=== PATIENT | male | born 1965 | race Caucasian/White ===

== ENCOUNTER 2019-02-06 17:34 | Emergency (ER) | payer BC ==
[2019-02-06 18:18] LABS: Protime INR 0.89
[2019-02-06 18:20] LABS: Absolute Lymphocytes (CBC) 2.2 K/uL (0.7-4.9); Absolute Monocytes 0.5 K/uL (0.1-1.3); Absolute Neutrophil 3.8 K/uL (1.8-8.0); Basophils % 0.8 % (0-1.3); Eosinophils % 1.5 % (0-4.4); Hematocrit 42.5 % (39.6-49.0); Lymphocytes % 33.3 % (15.3-44.8); MPV 10.6 fL (7.6-11.3); Monocytes % 6.9 % (3.3-12.3)
--- NOTE | 2019-02-06 18:25 | RAD REPORT ---
EXAM DESCRIPTION: RAD - Chest Single View - 02/06/2019 6:17 pm CLINICAL HISTORY: Left-sided chest pain radiating to the left shoulder and back COMPARISON: None. TECHNIQUE: AP portable chest image was obtained 1813 hours . FINDINGS: Lungs are clear. Heart and vasculature are normal. No measurable pleural effusion and no p neumothorax. No acute bony abnormality seen. No acute aortic findings suspected. IMPRESSION: No acute cardiopulmonary process.
[2019-02-06 18:45] LABS: ALT/SGPT 24 U/L (12-78); AST/SGOT 8 U/L (15-37); Albumin 3.8 g/dL (3.4-5.0); Alkaline Phosphatase 87 U/L (45-117); BUN Blood Urea Nitrogen 16 mg/dL (7-18); Bicarbonate 24 mmol/L (21-32); Bilirubin Direct 0.1 mg/dL (0-0.2); Bilirubin Total 0.3 mg/dL (0.2-1.0); Magnesium 2.2 mg/dL (1.8-2.4); NT PRO-BNP 30 pg/mL (<125); Potassium 3.8 mmol/L (3.5-5.1); Protein, Total 7.7 g/dL (6.4-8.2); Sodium Level 138 mmol/L (136-145); Troponin (Emerg Dept Use Only) < 0.02 ng/mL (0.0-0.045)
[2019-02-06 18:48] LABS: Glucose Level 417 mg/dL (74-106)
[2019-02-06] MEDS ORDERED: ONDANSETRON 4 MG/2 ML VIAL ONE (18:49)
[2019-02-06] MEDS ORDERED: MORPHINE 4 MG/ML SYR ONE (18:49)
[2019-02-06] MEDS ORDERED: INSULIN -REGULAR HUMAN 50 UNIT/0.5 ML ML ONE (19:08)
--- NOTE | 2019-02-06 19:46 | RAD REPORT ---
EXAM DESCRIPTION: CT - Ct Stroke Brain Wo Cont - 02/06/2019 7:36 pm CLINICAL HISTORY: Acute onset stroke-like symptoms CLINICAL HISTORY: None. TECHNIQUE: Axial 5 millimeter thick images of the head were obtained without IV contrast. All CT scans are performed using dose optimization technique as appropriate and may include automated exposure control or mA/KV adjustment according to patient size. FINDINGS: No intracranial hemorrhage, mass, or cerebral edema. No acute infarction identifiable. No extra-axial fluid collections. Mendoza matter-white matter differentiation is preserved. Visualized portions of the mastoid air cells, paranasal sinuses, and orbits are unremarkable. Lex ocampo telephoned to Kellie Hicks at 7:42 p.m.. IMPRESSION: No CT evidence of acute intracranial process.
--- NOTE | 2019-02-06 19:53 | RAD REPORT ---
EXAM DESCRIPTION: CT - Chest Angio - 02/06/2019 7:38 pm CLINICAL HISTORY: Left-sided chest pain radiating to the left shoulder COMPARISON: Chest films same date TECHNIQUE: Dynamically enhanced axial 3 mm thick images of the chest were obtained during administra tion of 150 mL Isovue 370 IV contrast. Coronal and oblique reconstruction images were generated and r eviewed. Exam utilizes a protocol for optimal evaluation of pulmonary arterial tree. All CT scans are performed using dose optimization technique as appropriate and may include automated exposure control or mA/KV adjustment according to patient size. FINDINGS: Pulmonary arteries are normal. No emboli or other suspicious finding. No aortic aneurysm o r acute aortic finding. Arch is 3 vessel configuration with no great vessel origin abnormality. No pe ricardial thickening or effusion. No measurable coronary artery calcifications. No mass or infiltrate in the lung parenchyma. No pleural thickening or pleural effusion. No pneumotho rax. No abnormal mediastinal or hilar masses or lymphadenopathy seen. No chest wall mass or abnormal axill ml lymphadenopathy. IMPRESSION: No aortic abnormality. No pulmonary embolism. Negative CT scan of the chest for other significant findings.
[2019-02-06] MEDS ORDERED: ALTEPLASE 100 ML IV ONE (20:13)
--- NOTE | 2019-02-06 20:29 | EKG ---
Test Date: 2019-02-06 Test Time: 17:40:20 Software Development Analyst: EFRAIN MEASUREMENT RESULTS: Intervals: Rate: 90 NJ: 136 QRSD: 110 QT: 368 QTc: 450 [place]: P: 53 NJ: 136 QRS: 52 T: -47 INTERPRETIVE STATEMENTS: Normal sinus rhythm T wave abnormality, consider inferior ischemia Abnormal ECG No previous ECG available for comparison Electronically Signed On 02-06-19 20:29:07 CDT by Steve Lee
[2019-02-06] MEDS ORDERED: NA CHLORIDE 0.9% 100 ML IV ONE (20:34)
--- NOTE | 2019-02-06 20:58 | ER ---
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 Transition of care: patient was not received from another setting of care. Onset of symptoms was February 06, 2019. Risk Assessment: Do you want to hurt yourself or someone else? Patient reports no desire to harm self or others. Initial Sepsis Screen: Does the patient meet any 2 criteria? No. Patient's initial sepsis screen is negative. Does the patient have a suspected source of infection? No. Patient's initial sepsis screen is negative. Care prior to arrival: None. 17:41 Method Of Arrival: Ambulatory ph 17:41 Acuity: SIDNEY 2 ph 19:20 An acute neurological deficit is present. The charge nurse has been notified. tl2 Triage Assessment: 19:18 The onset of the patients symptoms was February 06, 2019 at 19:18. tl2 Stroke Activation: Physician: Stroke Attending; Name: ; Notified At: ; Arrived At: Physician: Chief Stroke Resident; Name: ; Notified At: ; Arrived At: Physician: Stroke Resident; Name: ; Notified At: ; Arrived At: Physician: ED Attending; Name: Marjorie; Notified At: 19:20; Arrived At: 19:22 Physician: ED Resident; Name: ; Notified At: ; Arrived At: Historical: - Allergies: 17:46 No Known Allergies; ph - Home Meds: 20:22 Metformin Oral [Active]; tl2 - PMHx: 17:46 Hypertension; Myocardial infarction; CVA; Diabetes - IDDM; Ulcers; ph - PSHx: 17:46 foot sx; stomach sx; ph - Immunization history:: Adult Immunizations up to date. - Social history:: Smoking status: . - Ebola Screening: : No symptoms or risks identified at this time. Screenin:40 Abuse screen: Denies threats or abuse. Denies injuries from another. Nutritional sv screening: No deficits noted. Tuberculosis screening: No symptoms or risk factors identified. Fall Risk None identified. Assessment: 17:40 General: Appears uncomfortable, well developed, Behavior is cooperative, appropriate sv for age, anxious, Smells of alcohol. Pain: Complains of pain in anterior aspect of left upper chest and left breast Pain radiates to left shoulder and back Pain currently is 8 out of 10 on a pain scale. Quality of pain is described as sharp, Pain began earlier today Is intermittent. Neuro: Level of Consciousness is awake, alert, obeys commands, Oriented to person, place, time, situation, Moves all extremities. Full function Gait is steady. Cardiovascular: Patient's skin is warm and dry. Pulses are 3+ in right radial artery and left radial artery Rhythm is sinus rhythm. Respiratory: Airway is patent Respiratory effort is even, unlabored, Respiratory pattern is regular, symmetrical. Derm: Skin is flushed. 18:55 Reassessment: Patient appears in no apparent distress at this time. Patient and/or ch family updated on plan of care and expected duration. Pain level reassessed. Patient is alert, oriented x 3, equal unlabored respirations, skin warm/dry/pink. pt still c/o chest pains, pt medicated per orders. pt then states he feels slightly better pt O2 drops to 86, placed on 2L NC, O2 increased to 95%. 19:18 Reassessment: Pt was about to leave for CT scan and reported left sided facial and arm tl2 numbness. Left sided facial droop and slight left sided drift. Reports numbness to face and left arm. MD notified. 19:18 T-PA (Activase) Screening: Indications: Definite evidence of stroke, ischemic, embolic, tl2 or hypertensive: Yes. Treatment will start within 4.5 hours onset of symptoms: Yes. 19:20 VAN Scoring: Arm Drift: Minor drift tl2 19:20 General: Appears in no apparent distress. uncomfortable, Behavior is cooperative, tl2 appropriate for age, anxious. Pain: Complains of pain in chest Pain radiates to back, left arm Pain currently is 9 out of 10 on a pain scale. Quality of pain is described as sharp. 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 Cardiovascular: Patient's skin is warm and dry. Rhythm is sinus rhythm. Respiratory: Reports shortness of breath Airway is patent Respiratory effort is even, unlabored, Respiratory pattern is regular, symmetrical. GI: No signs and/or symptoms were reported involving the gastrointestinal system. Derm: Skin is flushed. 20:24 Reassessment: TPA started at 2023. See flowsheet for vitals. tl2 20:35 The patient has not been NPO before screening. The patient is alert, and able to follow tl2 commands. The patient does not exhibit slurred or garbled speech. The patient is not exhibiting difficulty speaking. The patient does not exhibit difficulty understanding words. The patient is able to swallow own secretions with no drooling or need for suction. Patient tolerated one teaspoon of water. No drooling, immediate coughing, gurgling, or clearing of the throat was noted. The patient did not tolerate 90mL of water. Drooling, immediate coughing, gurgling, or clearing of the throat was noted. Bedside swallow screening discontinued. Patient kept NPO until cleared by Speech Therapy or Physician. The patient failed the bedside swallow screening. The patient will be kept NPO until cleared by Speech Therapy or Physician. Provider notified of bedside swallow screening results: Yared Amador MD. 21:00 Reassessment: Patient appears in no apparent distress at this time. Patient and/or tl2 family updated on plan of care and expected duration. Pain level reassessed. [facility] at bedside. Pt stable for transfer. 21:00 Reassessment: Report given to [facility] nurse. TPA infusing at this time, 100 mL NS tl2 IVPB bag in place to infuse remaining tPA in tubing, [facility] aware. Pt is stable for transfer. Vital Signs: 17:44 BP 145 / 86; Pulse 91; Resp 24; Temp 98.4; Weight 95.25 kg; Height 5 ft. 9 in. (175.26 ph cm); Pain 8/10; 19:20 BP 151 / 97; Pulse 87; Resp 18; Pulse Ox 92% on 4 lpm NC; tl2 20:36 BP 163 / 76; Pulse 90; Resp 18; Pulse Ox 92% on 4 lpm NC; tl2 21:07 BP 156 / 76; Pulse 87; Resp 18; Temp 98; Pulse Ox 93% on 4 lpm NC; tl2 17:44 Body Mass Index 31.01 (95.25 kg, 175.26 cm) ph NIH Stroke Scale Scores: 19:20 NIHSS Score: 4 tl2 20:33 NIHSS Score: 8 gs ED Course: 17:35 Patient arrived in ED. as 17:40 Initial lab(s) drawn, by me, sent to lab. Inserted saline lock: 18 gauge in right sv forearm, using aseptic technique. Blood collected. Flushed right forearm with 5 ml normal saline. 17:40 EKG done, by technical sales manager. reviewed by Jorden Martin MD. sm3 17:40 Patient maintains SpO2 saturation greater than 95% on room air. sv 17:40 Patient has correct armband on for positive identification. Placed in gown. Bed in low sv position. Call light in reach. Side rails up X 1. ekg monitor tech on. Pulse ox on. NIBP on. Door closed. Head of bed elevated. 17:42 Claire Castillo, ELDER is Primary Nurse. sv 17:44 Triage completed. ph 17:46 Arm band placed on Patient placed in an exam room, on a stretcher, in view of staff ph members, on satellite project site monitor, on pulse oximetry. 17:53 Jorden Martin MD is Attending Physician. kdr 18:00 ED physician to see patient. sv 18:00 Basic Metabolic Panel Sent. sv 18:00 CBC with Diff Sent. sv 18:01 Magnesium Sent. sv 18:01 NT PRO-BNP Sent. sv 18:01 LFT's Sent. sv 18:10 X-ray(s) taken. sv 18:14 X-ray completed. Portable x-ray completed in exam room. Patient tolerated procedure ls3 well. 18:15 XRAY Chest (1 view) In Process Unspecified. EDMS 18:49 Notified ED physician of a critical lab result(s). bgl 417. ss 19:05 Report given to Cynthia FRIEDMAN and Ciara FRIEDMAN. sv 19:18 Primary Nurse role handed off by Claire Castillo, RN sv 19:25 Attending Physician role handed off by Jorden Martin MD gs 19:25 Yared Amador MD is Attending Physician. gs 19:37 CT Stroke Brain w/o Contrast In Process Unspecified. EDMS 19:38 CT Chest Angio In Process Unspecified. EDMS 21:05 Inserted saline lock: 20 gauge in left hand, using aseptic technique. tl2 21:25 Cynthia Mai RN is Primary Nurse. tl2 21:26 No provider procedures requiring assistance completed. Patient transferred, IV remains tl2 in place. 02/07 05:27 Primary Nurse role handed off by Cynthia Mai RN tl2 Administered Medications: 05 18:36 Drug: morphine 4 mg Route: IVP; Site: right forearm; ch 18:55 Follow up: Response: No adverse reaction; Pain is decreased ch 18:36 Drug: Zofran 4 mg Route: IVP; Site: right forearm; ch 18:55 Follow up: Response: No adverse reaction; Pain is decreased ch 18:57 Drug: Insulin Regular Human 5 units {Co-Signature: (Mulu Lima RN).} Route: sv IVP; Site: right forearm; 20:40 Follow up: Response: No adverse reaction; Blood sugar is lowered tl2 20:24 Drug: Alteplase {Co-Signature: tl1 (Ciara Berg RN).} Route: IV Thrombolytics; Rate: tl2 calculated rate; 21:06 Follow up: Response: infusion continued upon transfer tl2 21:28 Follow up: Response: No adverse reaction; No adverse reaction, infusion continue on tl2 transfer 21:04 Drug: fentaNYL (PF) 50 mcg Route: IVP; Site: left hand; tl2 21:27 Follow up: Response: No adverse reaction; Medication administered at discharge. tl2 21:04 Drug: NS 0.9% 100 ml Route: IV; Rate: bolus; Site: right forearm; tl2 21:10 Follow up: IV Status: Infusion continued upon transfer tl2 Point of Care Testing: Blood Glucose: 20:36 Blood Glucose: 254 mg/dL; tl2 Ranges: Outcome: 20:58 ER care complete, transfer ordered by . gs 21:26 Transferred by helicopter to [facility], Transfer form completed. tl2 21:26 Condition: stable 21:26 Discharge instructions given to patient, Instructed on the need for transfer. 21:28 Patient left the ED. tl2 02/07 05:29 Patient left the ED. tl2 NIH Stroke Scale - NIH Stroke Score Date: 02/06/2019 Time: 19:20 Total Score = 4 1a. Level of Consciousness (LOC) - 0(Alert) 1b. Level of Consciousness (LOC) (Year \\T\\ Age) - 0(Both) 1c. LOC Commands (Open \\T\\ Closes Eyes/Pre Press Proofer) - 0(Both) 2. Best Gaze (Lateral Gaze Paresis) - 0(Normal) 3. Visual Field Loss - 0(No visual loss) 4. Facial Palsy - 1(Minor Paralysis) 5a. Left Arm: Motor (10-second hold) - 1(Drift) 5b. Right Arm: Motor (10-second hold) - 0(No drift) 6a. Left Leg: Motor (5-second hold - always test supine) - 1(Drift) 6b. Right Leg: Motor (5-second hold - always test supine) - 0(No drift) 7. Limb Ataxia (finger/nose \\T\\ heel/alanis - test with eyes open) - 0(Absent) 8. Sensory Loss (pinprick arms/legs/face) - 1(Mild to moderate loss) 9. Best Language: Aphasia (description/naming/reading) - 0(No aphasia) 10. Dysarthria (speech clarity - read or repeat words) - 0(Normal) 11. Extinction and Inattention (visual/tactile/auditory/spatial/personal) - 0(No abnormality) Initials: 2 NIH Stroke Scale - NIH Stroke Score Date: 02/06/2019 Time: 20:33 Total Score = 8 1a. Level of Consciousness (LOC) - 0(Alert) 1b. Level of Consciousness (LOC) (Year \\T\\ Age) - 0(Both) 1c. LOC Commands (Open \\T\\ Closes Eyes/Pre Press Proofer) - 0(Both) 2. Best Gaze (Lateral Gaze Paresis) - 0(Normal) 3. Visual Field Loss - 0(No visual loss) 4. Facial Palsy - 1(Minor Paralysis) 5a. Left Arm: Motor (10-second hold) - 2(Drift, some effort against gravity) 5b. Right Arm: Motor (10-second hold) - 0(No drift) 6a. Left Leg: Motor (5-second hold - always test supine) - 1(Drift) 6b. Right Leg: Motor (5-second hold - always test supine) - 0(No drift) 7. Limb Ataxia (finger/nose \\T\\ heel/alanis - test with eyes open) - 1(Present in one limb) 8. Sensory Loss (pinprick arms/legs/face) - 1(Mild to moderate loss) 9. Best Language: Aphasia (description/naming/reading) - 1(Mild to moderate aphasia) 10. Dysarthria (speech clarity - read or repeat words) - 1(Mild to Moderate) 11. Extinction and Inattention (visual/tactile/auditory/spatial/personal) - 0(No abnormality) Initials: Signatures: Dispatcher [employer] Mulu Barber RN RN Claire Castillo RN RN Jorden Martin MD MD [facility] Edwige Burton Shelby, RN RN Elena Busby RN RN Cynthia Mai RN RN tl2 Yared Amador MD MD Ashlyn Bailey [facility] Sabrina Lynn 3 Mulu Lima RN Ciara Berg RN tl1 Corrections: (The following items were deleted from the chart) 02/06 17:47 17:44 Resp 24bpm; Temp 98.4F; 95.25 kg; Height 5 ft. 9 in.; BMI: 31.0; Pain ph 8/10; ph 20:51 19:52 VAN Scoring: Arm Drift: Minor drift tl2 tl2 20:51 19:52 T-PA (Activase) Screening: Indications: Definite evidence of stroke, tl2 ischemic, embolic, or hypertensive: Yes. Treatment will start within 4.5 hours onset of symptoms: Yes. tl2 20:51 19:52 NIHSS Score: 4 tl2 tl2
--- NOTE | 2019-02-06 20:59 | EDPHYS ---
Physician Documentation [facility] Name: Chi Diaz Age: 53 yrs Sex: Male : 1965 Arrival Date: 02/06/2019 Time: 17:35 Bed 3 Private MD: ED Physician Yared Amador HPI: 02/06 18:09 This 53 yrs old Male presents to ER via Ambulatory with complaints of Chest kdr Pain. 18:09 The patient or guardian reports chest pain that is located primarily in the substernal kdr area, anterior chest wall. Onset: suddenly, 2 hour(s) ago. The pain radiates to back, Between his scapulas. Associated signs and symptoms: Pertinent positives: diaphoresis, nausea, shortness of breath, Pertinent negatives: abdominal pain, headache, lower extremity pain, lower extremity swelling, lightheadedness, vomiting. The chest pain is described as aching, dull, a heaviness, a pressure. Duration: The patient or guardian reports a single episode, that is still ongoing, and worsening. Modifying factors: The symptoms are alleviated by nothing. the symptoms are aggravated by breathing, deep breath, emotionally stressful situations, Has been to tow recetn funerals. Severity of pain: At its worst the pain was severe in the emergency department the pain is unchanged. The patient has experienced similar episodes in the past, a few times. Historical: - Allergies: 17:46 No Known Allergies; ph - Home Meds: 20:22 Metformin Oral [Active]; tl2 - PMHx: 17:46 Hypertension; Myocardial infarction; CVA; Diabetes - IDDM; Ulcers; ph - PSHx: 17:46 foot sx; stomach sx; ph - Immunization history:: Adult Immunizations up to date. - Social history:: Smoking status: . - Ebola Screening: : No symptoms or risks identified at this time. ROS: 18:09 Constitutional: Negative for fever, chills, and weight loss, Eyes: Negative for injury, kdr pain, redness, and discharge, ENT: Negative for injury, pain, and discharge, Neck: Negative for injury, pain, and swelling, Abdomen/GI: Negative for abdominal pain, nausea, vomiting, diarrhea, and constipation, Back: Negative for injury and pain, : Negative for injury, bleeding, discharge, and swelling, MS/Extremity: Negative for injury and deformity, Skin: Negative for injury, rash, and discoloration, Neuro: Negative for headache, weakness, numbness, tingling, and seizure activity. Psych: Negative for depression, anxiety, suicide ideation, homicidal ideation, and hallucinations, Allergy/Immunology: Negative for hives, rash, and allergies, Endocrine: Negative for neck swelling, polydipsia, polyuria, polyphagia, and marked weight changes, Hematologic/Lymphatic: Negative for swollen nodes, abnormal bleeding, and unusual bruising. 18:09 Cardiovascular: Positive for chest pain, with cough, Negative for edema, orthopnea, palpitations, paroxysmal nocturnal dyspnea. 18:09 Respiratory: Positive for shortness of breath, Negative for cough, dyspnea on exertion, hemoptysis, pleurisy, sputum production, wheezing. Exam: 18:09 Constitutional: This is a well developed, well nourished patient who is awake, alert, kdr and in mild distress. Head/Face: Normocephalic, atraumatic. Eyes: Pupils equal round and reactive to light, extra-ocular motions intact. Lids and lashes normal. Conjunctiva and sclera are non-icteric and not injected. Cornea within normal limits. Periorbital areas with no swelling, redness, or edema. Neck: Trachea midline, no thyromegaly or masses palpated, and no cervical lymphadenopathy. Supple, full range of motion without nuchal rigidity, or vertebral point tenderness. No Meningismus. Chest/axilla: Normal chest wall appearance and motion. Nontender with no deformity. No lesions are appreciated. Cardiovascular: Regular rate and rhythm with a normal S1 and S2. No gallops, murmurs, or rubs. Normal PMI, no JVD. No pulse deficits. Respiratory: Lungs have equal breath sounds bilaterally, clear to auscultation and percussion. No rales, rhonchi or wheezes noted. No increased work of breathing, no retractions or nasal flaring. Abdomen/GI: Soft, non-tender, with normal bowel sounds. No distension or tympany. No guarding or rebound. No evidence of tenderness throughout. Back: No spinal tenderness. No costovertebral tenderness. Full range of motion. Skin: Warm, dry with normal turgor. Normal color with no rashes, no lesions, and no evidence of cellulitis. MS/ Extremity: Pulses equal, no cyanosis. Neurovascular intact. Full, normal range of motion. Neuro: Awake and alert, GCS 15, oriented to person, place, time, and situation. Cranial nerves II-XII grossly intact. Motor strength 5/5 in all extremities. Sensory grossly intact. Cerebellar exam normal. Normal gait. Psych: Awake, alert, with orientation to person, place and time. Behavior, mood, and affect are within normal limits. Vital Signs: 17:44 BP 145 / 86; Pulse 91; Resp 24; Temp 98.4; Weight 95.25 kg; Height 5 ft. 9 in. (175.26 ph cm); Pain 8/10; 19:20 BP 151 / 97; Pulse 87; Resp 18; Pulse Ox 92% on 4 lpm NC; tl2 20:36 BP 163 / 76; Pulse 90; Resp 18; Pulse Ox 92% on 4 lpm NC; tl2 21:07 BP 156 / 76; Pulse 87; Resp 18; Temp 98; Pulse Ox 93% on 4 lpm NC; tl2 17:44 Body Mass Index 31.01 (95.25 kg, 175.26 cm) ph NIH Stroke Scale Scores: 19:20 NIHSS Score: 4 tl2 20:33 NIHSS Score: 8 gs MDM: 18:09 Data reviewed: vital signs, nurses notes. kdr 19:25 Patient medically screened. gs 20:33 Differential diagnosis: acute myocardial infarction, coronary artery disease thoracic gs aortic disection, cva. Response to treatment: the patient's symptoms have mildly improved after treatment. 02/06 17:43 Order name: Basic Metabolic Panel 02/06 17:43 Order name: CBC with Diff 02/06 17:43 Order name: LFT's sv 02/06 17:43 Order name: Magnesium sv 02/06 17:43 Order name: NT PRO-BNP sv 02/06 17:43 Order name: PT-INR; Complete Time: 18:50 sv 02/06 17:43 Order name: Troponin (emerg Dept Use Only); Complete Time: 18:50 sv 02/06 17:43 Order name: XRAY Chest (1 view); Complete Time: 18:50 sv 02/06 17:44 Order name: Basic Metabolic Panel; Complete Time: 18:50 EDMS 02/06 17:44 Order name: CBC with Automated Diff; Complete Time: 18:50 EDMS /08 17:44 Order name: Liver (Hepatic) Function; Complete Time: 18:50 EDMS 08 17:44 Order name: Magnesium; Complete Time: 18:50 EDMS 08 17:44 Order name: NT PRO-BNP; Complete Time: 18:50 EDMS /08 18:09 Order name: CT Chest Angio; Complete Time: 20:20 kdr 08 17:43 Order name: EKG; Complete Time: 17:44 sv 08 17:43 Order name: Cardiac monitoring; Complete Time: 17:43 sv 08 17:43 Order name: EKG - Nurse/Tech; Complete Time: 17:43 sv 08 17:43 Order name: IV Saline Lock; Complete Time: 17:43 sv 08 17:43 Order name: Labs collected and sent; Complete Time: 17:43 sv 08 17:43 Order name: O2 Per Protocol; Complete Time: 17:43 sv 08 17:43 Order name: O2 Sat Monitoring; Complete Time: 17:44 sv 08 19:23 Order name: CT Stroke Brain w/o Contrast; Complete Time: 20:20 tl2 Administered Medications: 18:36 Drug: morphine 4 mg Route: IVP; Site: right forearm; ch 18:55 Follow up: Response: No adverse reaction; Pain is decreased ch 18:36 Drug: Zofran 4 mg Route: IVP; Site: right forearm; ch 18:55 Follow up: Response: No adverse reaction; Pain is decreased ch 18:57 Drug: Insulin Regular Human 5 units {Co-Signature: ch (Mulu Lima RN).} Route: sv IVP; Site: right forearm; 20:40 Follow up: Response: No adverse reaction; Blood sugar is lowered tl2 20:24 Drug: Alteplase {Co-Signature: tl1 (Ciara Berg RN).} Route: IV Thrombolytics; Rate: tl2 calculated rate; 21:06 Follow up: Response: infusion continued upon transfer tl2 21:28 Follow up: Response: No adverse reaction; No adverse reaction, infusion continue on tl2 transfer 21:04 Drug: fentaNYL (PF) 50 mcg Route: IVP; Site: left hand; tl2 21:27 Follow up: Response: No adverse reaction; Medication administered at discharge. tl2 21:04 Drug: NS 0.9% 100 ml Route: IV; Rate: bolus; Site: right forearm; tl2 21:10 Follow up: IV Status: Infusion continued upon transfer tl2 Point of Care Testing: Blood Glucose: 20:36 Blood Glucose: 254 mg/dL; tl2 Ranges: Critical Glucose Levels:Adult <50 mg/dl or >400 mg/dl <40 mg/dl or >180 mg/dl Disposition: 20:33 Critical Care:. gs Disposition: 02/06/19 20:58 Transfer ordered to [facility]. Diagnosis are Cerebral infarction, Other chest pain. - Reason for transfer: Higher level of care. - Accepting physician is stroke neuro. - Condition is Stable. - Problem is new. - Symptoms are unchanged. Critical care time excluding procedures: 20:33 Critical care time: Bedside Care: 10 minutes, Consultation: 10 minutes, Family gs Intervention: 10 minutes. Total time: 30 minutes NIH Stroke Scale - NIH Stroke Score Date: 02/06/2019 Time: 19:20 Total Score = 4 1a. Level of Consciousness (LOC) - 0(Alert) 1b. Level of Consciousness (LOC) (Year \T\ Age) - 0(Both) 1c. LOC Commands (Open \T\ Closes Eyes/Distance Learning Program Coordinator) - 0(Both) 2. Best Gaze (Lateral Gaze Paresis) - 0(Normal) 3. Visual Field Loss - 0(No visual loss) 4. Facial Palsy - 1(Minor Paralysis) 5a. Left Arm: Motor (10-second hold) - 1(Drift) 5b. Right Arm: Motor (10-second hold) - 0(No drift) 6a. Left Leg: Motor (5-second hold - always test supine) - 1(Drift) 6b. Right Leg: Motor (5-second hold - always test supine) - 0(No drift) 7. Limb Ataxia (finger/nose \T\ heel/alanis - test with eyes open) - 0(Absent) 8. Sensory Loss (pinprick arms/legs/face) - 1(Mild to moderate loss) 9. Best Language: Aphasia (description/naming/reading) - 0(No aphasia) 10. Dysarthria (speech clarity - read or repeat words) - 0(Normal) 11. Extinction and Inattention (visual/tactile/auditory/spatial/personal) - 0(No abnormality) Initials: tl2 NIH Stroke Scale - NIH Stroke Score Date: 02/06/2019 Time: 20:33 Total Score = 8 1a. Level of Consciousness (LOC) - 0(Alert) 1b. Level of Consciousness (LOC) (Year \T\ Age) - 0(Both) 1c. LOC Commands (Open \T\ Closes Eyes/Distance Learning Program Coordinator) - 0(Both) 2. Best Gaze (Lateral Gaze Paresis) - 0(Normal) 3. Visual Field Loss - 0(No visual loss) 4. Facial Palsy - 1(Minor Paralysis) 5a. Left Arm: Motor (10-second hold) - 2(Drift, some effort against gravity) 5b. Right Arm: Motor (10-second hold) - 0(No drift) 6a. Left Leg: Motor (5-second hold - always test supine) - 1(Drift) 6b. Right Leg: Motor (5-second hold - always test supine) - 0(No drift) 7. Limb Ataxia (finger/nose \T\ heel/alanis - test with eyes open) - 1(Present in one limb) 8. Sensory Loss (pinprick arms/legs/face) - 1(Mild to moderate loss) 9. Best Language: Aphasia (description/naming/reading) - 1(Mild to moderate aphasia) 10. Dysarthria (speech clarity - read or repeat words) - 1(Mild to Moderate) 11. Extinction and Inattention (visual/tactile/auditory/spatial/personal) - 0(No abnormality) Initials: Signatures: Dispatcher [employer] EDMS Mulu Lima RN RN Claire Castillo RN RN Jorden Martin MD MD [facility] Elena Busby RN RN Cynthia Mai RN RN tl2 Yared Amador MD MD Mulu Lima RN Ciara Berg RN tl1 Corrections: (The following items were deleted from the chart) 21:28 20:58 02/06/2019 20:58 Transfer ordered to [facility]. tl2 Diagnosis is Cerebral infarction; Other chest pain. Reason for transfer: Higher level of care. Accepting physician is stroke neuro. Condition is Stable. Problem is new. Symptoms are unchanged. 02/07 05:29 02/06 21:28 02/06/2019 20:58 Transfer ordered to [place] [address] [facility]. Diagnosis is Cerebral infarction; Other chest pain. Reason for transfer: Higher level of care. Accepting physician is stroke neuro. Condition is Stable. Problem is new. Symptoms are unchanged. [facility]
[2019-02-06] MEDS ORDERED: FENTANYL CITR 100 MCG/2 ML ONE (21:13)
== END 2019-02-07 05:29 | disposition short-term general hospital (02) ==
LOC: ER 17:34
DX: I63.9 Cerebral infarction, unspecified (principal); I10 Essential (primary) hypertension; E11.9 Type 2 diabetes mellitus without complications; I25.2 Old myocardial infarction; Z86.73 Personal history of transient ischemic attack (TIA), and cerebral infarction without residual deficits; Z79.4 Long term (current) use of insulin
CPT/HCPCS: 36415; 70450; 71045; 71275; 80048; 80076; 82962; 83735; 83880; 84484; 85025; 85610; 92977; 93005; 99291; J2405; J2997; J3010; Q9967

== ENCOUNTER 2019-06-21 03:44 | Emergency (ER) | payer BC ==
--- OUTSIDE RECORDS SUMMARY | 2019-06-21 03:46 | XMS REPORT | Clinical Summary ---
:1965 Author Organization [facility] Address [address] [place] [address] Care Team Providers Name Role Phone Destini Dash MD Primary Care Provider Allergies Active Allergy Reactions Severity Noted Date Comments Penicillins Rash High 12/16/2016 Medications Medication Sig Dispensed Refills Start Date End Date Status metFORMIN (GLUCOPHAGE) Take 1,000 mg by 0 Active 1,000 mg tablet mouth 2 (two) times a day with meals. lisinopril Take 10 mg by 0 Active (PRINIVIL,ZESTRIL) 10 mouth daily. mg tablet insulin detemir Inject 15 Units 0 Active (LEVEMIR) 100 unit/mL under the skin 2 injection (two) times a day. zolpidem CR (AMBIEN CR) Take 12.5 mg by 0 Active 12.5 MG CR tablet mouth nightly as needed for sleep. omega-3 acid ethyl Take 1 g by mouth 0 Active esters (LOVAZA) 1 gram 2 (two) times a capsule day. atorvastatin (LIPITOR) Take 20 mg by 0 Active 20 MG tablet mouth nightly. Active Problems Problem Noted Date Chest pain 12/17/2016 Encounters Date Type Specialty Care Team Description 05/02/2019 Hospital Encounter Procedural Maoi, Cryptogenic stroke Cardiology MD Jovan ([facility]) 03/27/2019 Hospital Encounter Procedural Susan, Cryptogenic stroke Cardiology MD Jovan ([facility]) after 06/20/2018 Social History Tobacco Use Types Packs/Day Years Used Date Never Smoker Smokeless Tobacco: Never Used Alcohol Use Drinks/Week oz/Week Comments No Sex Assigned at Date Recorded Not on file Job Start Date Occupation Industry Not on file Not on file Not on file Travel History Travel Start Travel End No recent travel history available. Last Filed Vital Signs Not on file Plan of Treatment Health Maintenance Due Date Last Done Comments COLONOSCOPY SCREENING 2016 SHINGLES VACCINES (#1) 2016 INFLUENZA VACCINE 05/02/2019 Results Not on fileafter 06/20/2018 Advance Directives For more information, please contact: [phone] Type Date Recorded Patient [employer] Membership Advisors Explanation Advance Directives, 07/28/2016 3:04 PM Living Will and Medical Power of Administrative Appeals Tribunal Member
--- OUTSIDE RECORDS SUMMARY | 2019-06-21 03:47 | XMS REPORT | Clinical Summary ---
:1965 Author Organization [facility] Address [address] [place] [address] Care Team Providers Name Role Phone Melyssa Pratt MD Primary Care Provider Allergies Active Allergy Reactions Severity Noted Date Comments Meperidine Itching Low 05/17/2016 Ibuprofen 05/17/2016 "causes my stomach to bleed" Penicillins Swelling High 04/06/2013 Pt reports Swelling around face Ketorolac Itching Low 05/17/2016 Medications Medication Sig Dispensed Refills Start End Date Status Date diazepam (VALIUM) Take 5 mg by mouth 0 Active 5 MG tablet 2 (two) times daily as needed . omega-3 fatty Take 1 g by mouth 0 Active acids-fish oil daily. 340-1,000 mg Cap per capsule zolpidem (AMBIEN) Take 10 mg by mouth 0 Active 10 mg tablet every night as needed for Insomnia. citalopram Take 40 mg by mouth 0 Active (CELEXA) 40 MG daily. tablet aspirin 81 MG Take 81 mg by mouth 0 02/13/20 Discontinued chewable tablet daily. 19 lisinopril Take 40 mg by mouth 0 02/13/20 Discontinued (PRINIVIL,ZESTRIL daily. 19 ) 40 MG tablet metFORMIN Take 500 mg by 0 02/13/20 Discontinued (GLUCOPHAGE) 1000 mouth 2 (two) times 19 MG tablet daily with breakfast and dinner. atorvastatin Take 40 mg by mouth 0 02/13/20 Discontinued (LIPITOR) 40 MG daily. 19 tablet dextroamphetamine Take 45 mg by mouth 0 02/13/20 Discontinued -amphetamine daily. 19 (AMPHETAMINE-DEXT ROAMPHETAMINE) 30 mg Tab carvedilol Take 1 tablet (6.25 60 tablet 0 05/1902/13/20 Discontinued (COREG) 6.25 MG mg total) by mouth 6 19 tablet 2 (two) times daily with breakfast and dinner. atorvastatin Take 1 tablet (80 30 tablet 2 05/13/20 (LIPITOR) 80 MG mg total) by mouth 9 19 tablet daily for 90 days. aspirin 81 MG Take 1 tablet (81 30 tablet 2 05/13/20 chewable tablet mg total) by mouth 9 19 daily for 90 days. lisinopril Take 1 tablet (40 30 tablet 2 05/13/20 (PRINIVIL,ZESTRIL mg total) by mouth 9 19 ) 40 MG tablet daily for 90 days. folic acid Take 1 tablet (1 mg 30 tablet 2 05/14/20 (FOLVITE) 1 MG total) by mouth 9 19 tablet daily for 90 days. mINOCYCLine Take 1 capsule (100 10 capsule 0 02/18/20 (MINOCIN,DYNACIN) mg total) by mouth 9 19 100 MG capsule every 12 (twelve) hours for 5 days. metoprolol Take 1 tablet (50 60 tablet 2 05/13/20 (LOPRESSOR) 50 MG mg total) by mouth 9 19 tablet 2 (two) times daily for 90 days. insulin glargine Inject 14 Units 25.2 mL 0 05/13/20 (LANTUS) 100 subcutaneously 2 9 19 unit/mL (3 mL) (two) times daily InPn for 90 days. insulin aspart Inject 0.08 mLs (8 21.6 mL 0 05/13/20 U-100 (NOVOLOG) Units total) 9 19 100 unit/mL (3 subcutaneously 3 mL) InPn (three) times daily before meals for 90 days. indomethacin Take 1 capsule (25 7 capsule 0 02/13/20 Discontinued (INDOCIN) 25 MG mg total) by mouth 9 19 capsule daily for 7 days. indomethacin Take 1 capsule (25 7 capsule 0 02/21/20 (INDOCIN) 25 MG mg total) by mouth 9 19 capsule daily for 7 days. Active Problems Problem Noted Date Stroke 02/06/2019 Noncompliance with CPAP treatment 05/18/2016 Noncompliance with medication regimen 05/18/2016 Chest pain, unspecified type 05/17/2016 COPD (chronic obstructive pulmonary disease) Encounters Date Type Specialty Care Team Description 02/11/2019 Surgery Thad Esposito & HÉCTOR Chang MD 02/08/2019 Anesthesia Event Elias Schilling MD 02/07/2019 Orders Only General Internal Medicine 02/07/2019 Travel 02/06/2019 - Hospital Encounter General Internal Nikolas Melendez Acute ischemic stroke (HCC); 02/12/2019 Medicine MD Dane Received tissue plasminogen activator (t-PA) less than 24 hours prior to arrival; Cole Essential hypertension; Karena Mcdonald Chest pain, unspecified type MD Paxton after 06/20/2018 Family History Medical History Relation Name Comments Heart attack Brother Heart disease Brother Pacemaker Hypertension Brother Heart attack Father Heart disease Father 3 open heart surgeries Hyperlipidemia Father Hypertension Father Alzheimer's disease Maternal Aunt Rheum arthritis Maternal Aunt Skin cancer Maternal Grandfather Skin cancer Maternal Grandmother Dementia Mother Eczema Mother Gallbladder disease Mother Hypertension Mother Hypothyroidism Mother Migraines Mother Osteoarthritis Mother Rheum arthritis Mother Relation Name Status Comments Brother Alive Brother Father Alive Maternal Aunt Maternal Grandfather Maternal Grandmother Mother Alive Paternal Grandfather Paternal Grandmother Social History Tobacco Use Types Packs/Day Years Used Date Former Smoker Cigarettes 10/02/1985 - 10/02/1985 Smokeless Tobacco: Never Used Tobacco Cessation: Counseling Given: No Comments: Smoked in teenage years for a short while, then never again Alcohol Use Drinks/Week oz/Week Comments Yes wine/liquor occassionally with dinner Sex Assigned at Date Recorded Not on file Job Start Date Occupation Industry Not on file Not on file Not on file Travel History Travel Start Travel End No recent travel history available. 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 Shelf Model / Identifier Expiration Serial / Date Lot Monitor Reveal Linq Prod Sys Linqsys - [id number] PACEMAKER/I [employer]: CARD LINQSYS / Implanted: Qty: 1 on 02/11/2019 by Thad Esposito MD CD CHAMBER RHY: PACING SYS / DEVICE Procedures Procedure Name Priority Date/Time Associated Diagnosis Comments ARRYTHMIA IMPLANT 02/19/2019 5:53 REPORT - SCAN PM CDT VASCULAR DIAGRAM -SCAN 02/13/2019 1:51 PM CDT REPORT OF PROCEDURE - 02/13/2019 1:51 ENDOSCOPY SCAN PM CDT RHYTHM STRIP - SCAN 02/13/2019 1:51 PM CDT CARDIAC CATH REPORT - 02/13/2019 1:51 SCAN PM CDT TRANSFUSION SERVICE 02/12/2019 5:51 REPORT - SCAN PM CDT POCT-GLUCOSE METER Routine 02/12/2019 7:59 Results for this AM CDT procedure are in the results section. POCT-GLUCOSE METER Routine 02/11/2019 10:01 Results for this PM CDT procedure are in the results section. SUBCUTANEOUS 02/11/2019 2:04 Coronary artery IMPLANTABLE LOOP PM CDT disease with angina RECORDER IMPLANT pectoris, (EVENT RECORDER) unspecified vessel or lesion type, unspecified whether tonto apache or transplanted heart (HCC) L CATH & PCI 02/11/2019 2:04 Coronary artery PM CDT disease with angina pectoris, unspecified vessel or lesion type, unspecified whether t[place] apache or transplanted heart (HCC) POCT-GLUCOSE METER Routine 02/11/2019 10:13 Results for this AM CDT procedure are in the results section. ABORH, MANUAL STAT 02/11/2019 6:15 Results for this AM CDT procedure are in the results section. CBC W/PLT COUNT & AUTO Routine 02/11/2019 5:11 Results for this DIFFERENTIAL AM CDT procedure are in the results section. TYPE AND SCREEN, Routine 02/11/2019 5:11 Results for this AUTOMATED AM CDT procedure are in the results section. BASIC METABOLIC PANEL Routine 02/11/2019 5:11 Results for this (7) AM CDT procedure are in the results section. PT/APTT Routine 02/11/2019 5:11 Results for this AM CDT procedure are in the results section. CBC W/PLT COUNT & AUTO Routine 02/11/2019 5:11 Results for this DIFFERENTIAL AM CDT procedure are in the results section. POCT-GLUCOSE METER Routine 02/10/2019 9:01 Results for this PM CDT procedure are in the results section. POCT-GLUCOSE METER Routine 02/10/2019 5:50 Results for this PM CDT procedure are in the results section. NM CARDIAC PET RAQUEL 02/10/2019 2:14 Results for this PERFUSION REST AND/OR PM CDT procedure are in STRESS the results section. TREADMILL Routine 02/10/2019 2:11 Results for this TOLERANCE(NON-NUCLEAR PM CDT procedure are in TREADMILL) the results section. POCT-GLUCOSE METER Routine 02/10/2019 11:32 Results for this AM CDT procedure are in the results section. POCT-GLUCOSE METER Routine 02/10/2019 7:04 Results for this AM CDT procedure are in the results section. POCT-GLUCOSE METER Routine 02/09/2019 9:30 Results for this PM CDT procedure are in the results section. POCT-GLUCOSE METER Routine 02/09/2019 6:51 Results for this PM CDT procedure are in the results section. CTA CHEST STAT 02/09/2019 5:07 Results for this PM CDT procedure are in the results section. POCT-GLUCOSE METER Routine 02/09/2019 11:36 Results for this AM CDT procedure are in the results section. RAPID DRUG SCREEN, Routine 02/09/2019 10:32 Results for this URINE AM CDT procedure are in the results section. POCT-GLUCOSE METER Routine 02/09/2019 7:40 Results for this AM CDT procedure are in the results section. CBC W/PLT COUNT & AUTO Routine 02/09/2019 4:57 Results for this DIFFERENTIAL AM CDT procedure are in the results section. CBC W/PLT COUNT & AUTO Routine 02/09/2019 4:57 Results for this DIFFERENTIAL AM CDT procedure are in the results section. BASIC METABOLIC PANEL Routine 02/09/2019 4:57 Results for this (7) AM CDT procedure are in the results section. POCT-GLUCOSE METER Routine 02/08/2019 9:58 Results for this PM CDT procedure are in the results section. POCT-GLUCOSE METER Routine 02/08/2019 5:42 Results for this PM CDT procedure are in the results section. POCT-GLUCOSE METER Routine 02/08/2019 12:04 Results for this PM CDT procedure are in the results section. POCT-GLUCOSE METER Routine 02/08/2019 7:14 Results for this AM CDT procedure are in the results section. CBC W/PLT COUNT & AUTO Routine 02/08/2019 3:44 Results for this DIFFERENTIAL AM CDT procedure are in the results section. CBC W/PLT COUNT & AUTO Routine 02/08/2019 3:44 Results for this DIFFERENTIAL AM CDT procedure are in the results section. BASIC METABOLIC PANEL Routine 02/08/2019 3:44 Results for this (7) AM CDT procedure are in the results section. POCT-GLUCOSE METER Routine 02/07/2019 10:18 Results for this PM CDT procedure are in the results section. ECHOCARDIOGRAM REPORT 02/07/2019 9:21 - SCAN PM CDT CT BRAIN WITHOUT IV Routine 02/07/2019 8:48 Results for this CONTRAST PM CDT procedure are in the results section. POCT-GLUCOSE METER Routine 02/07/2019 3:51 Results for this PM CDT procedure are in the results section. TROPONIN I Routine 02/07/2019 12:53 Results for this PM CDT procedure are in the results section. POCT-GLUCOSE METER Routine 02/07/2019 11:50 Results for this AM CDT procedure are in the results section. ECG 12-LEAD Routine 02/07/2019 11:37 Results for this AM CDT procedure are in the results section. POCT-GLUCOSE METER Routine 02/07/2019 6:04 Results for this AM CDT procedure are in the results section. CBC W/PLT COUNT & AUTO Routine 02/07/2019 4:34 Results for this DIFFERENTIAL AM CDT procedure are in the results section. PHOSPHORUS Routine 02/07/2019 4:34 Results for this AM CDT procedure are in the results section. MAGNESIUM Routine 02/07/2019 4:34 Results for this AM CDT procedure are in the results section. TROPONIN I Routine 02/07/2019 4:34 Results for this AM CDT procedure are in the results section. CBC W/PLT COUNT & AUTO Routine 02/07/2019 4:34 Results for this DIFFERENTIAL AM CDT procedure are in the results section. BASIC METABOLIC PANEL Routine 02/07/2019 4:34 Results for this (7) AM CDT procedure are in the results section. LIPID PANEL Routine 02/07/2019 4:34 Results for this AM CDT procedure are in the results section. 2D ECHO W/ DOPPLER Routine 02/07/2019 2:37 Results for this (CW/PW/COLOR) AM CDT procedure are in the results section. CBC W/PLT COUNT & AUTO Routine 02/06/2019 11:56 Results for this DIFFERENTIAL PM CDT procedure are in the results section. CBC W/PLT COUNT & AUTO Routine 02/06/2019 11:56 Results for this DIFFERENTIAL PM CDT procedure are in the results section. VITAMIN B12 AND FOLATE Routine 02/06/2019 11:56 Results for this PM CDT procedure are in the results section. TSH/FREE T4 IF Routine 02/06/2019 11:56 Results for this INDICATED PM CDT procedure are in the results section. HEMOGLOBIN A1C Routine 02/06/2019 11:56 Results for this PM CDT procedure are in the results section. RPR Routine 02/06/2019 11:56 Results for this PM CDT procedure are in the results section. BASIC METABOLIC PANEL Routine 02/06/2019 11:56 Results for this (7) PM CDT procedure are in the results section. PROTHROMBIN TIME/INR Routine 02/06/2019 11:56 Results for this PM CDT procedure are in the results section. APTT Routine 02/06/2019 11:56 Results for this PM CDT procedure are in the results section. CT/CTA CAROTID Routine 02/06/2019 11:14 Results for this PM CDT procedure are in the results section. CTA BRAIN STAT 02/06/2019 11:14 Results for this PM CDT procedure are in the results section. after 06/20/2018 Results ARRYTHMIA IMPLANT REPORT - SCAN (02/19/2019 5:53 PM CDT) Narrative Performed At VASCULAR DIAGRAM -SCAN (02/13/2019 1:51 PM CDT) Narrative Performed At EKG-SCANNED (02/13/2019 1:51 PM CDT) Narrative Performed At RHYTHM STRIP - SCAN (02/13/2019 1:51 PM CDT) Narrative Performed At CARDIAC CATH REPORT - SCAN (02/13/2019 1:51 PM CDT) Narrative Performed At TRANSFUSION SERVICE REPORT - SCAN (02/12/2019 5:51 PM CDT) Narrative Performed At POC-Glucose meter (02/12/2019 7:59 AM CDT)Only the most recent of19 resultswithin the time period is included. POC-Glucose Meter 233 (H)Comment: TESTED AT 70 - 110 mg/dL [address] [address] Specimen Blood Performing Organization Address City/[facility] Phone Number [address] [address] [phone] [facility], manual (02/11/2019 6:15 AM CDT) ABO Grouping A [facility] Rh Factor NEG [facility] Specimen Blood Performing Organization Address City/[facility]/Zipcode Phone Number [address] [address] Type and screen, automated ([facility]) (02/11/2019 5:11 AM CDT) ABO/RH AUTOMATED (BEAKER) A NEGATIVE [facility] Ab Scrn NEGATIVE [facility] Specimen Blood Performing Organization Address City/[facility]/Zipcode Phone Number [address] [address] PT/aPTT (02/11/2019 5:11 AM CDT) Protime 14.2 11.7 - 14.7 seconds [facility] INR 1.2 <=5.9 [facility] PTT 30.2 22.5 - 36.0 seconds [facility] Specimen Blood Narrative Performed At RECOMMENDED COUMADIN/WARFARIN INR THERAPY [facility] RANGES STANDARD DOSE: 2.0 - 3.0 Includes: PROPHYLAXIS for venous thrombosis, systemic embolization; TREATMENT for venous thrombosis and/or pulmonary embolus. HIGH RISK: Target INR is 2.5-3.5 for patients with mechanical heart valves. Performing Organization Address City/State/Zipcode Phone Number [facility] [address] [place] [address] CENTER CBC with platelet count + automated diff (02/11/2019 5:11 AM CDT)Only the most recent of5 resultswithin the time period is included. WBC 6.4 3.5 - 10.5 K/L [facility] RBC 4.23 (L) 4.63 - 6.08 M/L [facility] Hemoglobin 13.3 (L) 13.7 - 17.5 GM/DL [facility] Hematocrit 40.9 40.1 - 51.0 % [facility] MCV 96.7 (H) 79.0 - 92.2 fL [facility] MCH 31.4 25.7 - 32.2 pg [facility] MCHC 32.5 32.3 - 36.5 GM/DL [facility] RDW 14.5 (H) 11.6 - 14.4 % [facility] Platelets 195 150 - 450 K/CU MM [facility] MPV 11.8 9.4 - 12.4 fL [facility] nRBC 0 0 - 0 /100 WBC [facility] % Neutros 59 % [facility] % Lymphs 27 % [facility] % Monos 11 % [facility] % Eos 2 % [facility] % Baso 1 % [facility] # Neutros 3.77 1.78 - 5.38 K/L [facility] # Lymphs 1.73 1.32 - 3.57 K/L [facility] # Monos 0.67 0.30 - 0.82 K/L [facility] # Eos 0.10 0.04 - 0.54 K/L [facility] # Baso 0.07 0.01 - 0.08 K/L [facility] Immature Granulocytes-Relative 1 0 - 1 % [facility] Specimen Blood Performing Organization Address City/[facility]/Zipcode Phone Number [address] [address] [phone] [facility] Basic Metabolic Panel (02/11/2019 5:11 AM CDT)Only the most recent of5 resultswithin the time period is included. Sodium 139 136 - 145 meq/L [facility] Potassium 4.0 3.5 - 5.1 meq/L [facility] Chloride 105 98 - 107 meq/L [facility] CO2 28 22 - 29 meq/L [facility] BUN 17 7 - 21 mg/dL [facility] Creatinine 0.74 0.57 - 1.25 mg/dL [facility] Glucose 185 (H) 70 - 105 mg/dL [facility] Calcium 8.7 8.4 - 10.2 mg/dL [facility] EGFR 111Comment: ESTIMATED GFR IS mL/min/1.73 sq m [facility] NOT ACCURATE CREATININE [facility] CLEARANCE IN PREDICTING GLOMERULAR FILTRATION RATE. ESTIMATED GFR IS NOT APPLICABLE FOR DIALYSIS PATIENTS. Specimen Blood Performing Organization Address City/State/Zipcode Phone Number [facility] [address] [place] [address] [facility] [place] myocardial perfusion PET (rest and stress) (02/10/2019 2:14 PM CDT) Specimen Narrative Performed At FINAL REPORT RIS PROCEDURE: MYOCARDIAL PERFUSION PET IMAGING (Rest/Stress) CPT CODE: 37693 INDICATION: Chest pain CARDIOVASCULAR PROFILE: Symptoms: Chest pain CAD History: None Risk Factors: COPD, diabetes mellitus, hypertension BMI: 32.0 Medications: Aspirin, metoprolol, atorvastatin STRESS PROTOCOL: Pharmacologic stress was achieved with a 10-second intravenous infusion of regadenoson 0.4 mg. IMAGING PROTOCOL: Limited low-dose CT imaging was performed for attenuation correction. 40.1 mCi of Rb-82 chloride was injected intravenously at rest, and PET images were obtained. Then, 40.1 mCi of Rb-82 chloride was injected intravenously at peak stress, and PET images were obtained. REST FINDINGS: HR: 67 /min BP: 135/50 mmHg Prelim. EKG: Normal sinus rhythm. Perfusion: Normal. Wall Motion: Normal (LVEF 62%). LV Volume: Normal. RV Volume: Normal. STRESS FINDINGS: HR: 88 /min (52% of MPHR) BP: 140/70 mmHg Prelim. EKG: No ischemic changes. Symptoms: Transient dyspnea (treatment not required). Perfusion: Mildly decreased in the anteroapical region. Wall Motion: Normal (LVEF 72%). LV Volume: Unchanged from rest. IMPRESSION: 1. Abnormal study. 2. Abnormal myocardial perfusion. There is a small mild reversible anteroapical finding. 3.Normal global LV function, which does not deteriorate with stress. 4. Normal extracardiac tracer distribution. 5. The exam of November 04, 2010 was normal.. Signed: Raphael Fisher MD Report Verified Date/Time:02/10/2019 15:45:35 Procedure Note Interface, External Ris In - 02/10/2019 3:47 PM CDT FINAL REPORT PROCEDURE: MYOCARDIAL PERFUSION PET IMAGING (Rest/Stress) CPT CODE: 09643 INDICATION: Chest pain CARDIOVASCULAR PROFILE: Symptoms: Chest pain CAD History: None Risk Factors: COPD, diabetes mellitus, hypertension BMI: 32.0 Medications: Aspirin, metoprolol, atorvastatin STRESS PROTOCOL: Pharmacologic stress was achieved with a 10-second intravenous infusion of regadenoson 0.4 mg. IMAGING PROTOCOL: Limited low-dose CT imaging was performed for attenuation correction. 40.1 mCi of Rb-82 chloride was injected intravenously at rest, and PET images were obtained. Then, 40.1 mCi of Rb-82 chloride was injected intravenously at peak stress, and PET images were obtained. REST FINDINGS: HR: 67 /min BP: 135/50 mmHg Prelim. EKG: Normal sinus rhythm. Perfusion: Normal. Wall Motion: Normal (LVEF 62%). LV Volume: Normal. RV Volume: Normal. STRESS FINDINGS: HR: 88 /min (52% of MPHR) BP: 140/70 mmHg Prelim. EKG: No ischemic changes. Symptoms: Transient dyspnea (treatment not required). Perfusion: Mildly decreased in the anteroapical region. Wall Motion: Normal (LVEF 72%). LV Volume: Unchanged from rest. IMPRESSION: 1. Abnormal study. 2. Abnormal myocardial perfusion. There is a small mild reversible anteroapical finding. 3.Normal global LV function, which does not deteriorate with stress. 4. Normal extracardiac tracer distribution. 5. The exam of November 04, 2010 was normal.. Signed: Raphael Fisher MD Report Verified Date/Time: 02/10/2019 15:45:35 Performing Organization Address City/State/Zipcode Phone Number [facility] Treadmill tolerance(Non-Nuclear Treadmill) (02/10/2019 2:11 PM CDT) Specimen Narrative Performed At Protocol Name Diagnose.me Time In Exercise Phase 00:01:00 Max. Systolic BP 140 mmHg Max Diastolic BP 70 mmHg Max Heart Rate 88 BPM Max Predicted Heart Rate 168 BPM Reason For Termination Predetermined end point Reason for Test Chest Pain Target HR Formula (220 - Age)*100% Arrhythmias none Resting ECG Normal sinus rhythm Incomplete Left Bundle Branch ST Changes No Significant Changes Overall Impression Indeterminate due to pharmacological stress Chest Pain none HR Response To Exercise BP Response To Exercise ASA metoprolol Atorvastatin Lantus Insulin Confirmed by fellow Dane Albright ([id number]) on 02/11/2019 11:51:23 AM Confirmed by MD BARRERA JORGE [id number]) on 02/26/2019 4:11:04 PM Procedure Note Interface, External Ris In - 02/26/2019 5:52 PM CDT Protocol Name Regadenoson Time In Exercise Phase 00:01:00 Max. Systolic BP 140 mmHg Max Diastolic BP 70 mmHg Max Heart Rate 88 BPM Max Predicted Heart Rate 168 BPM Reason For Termination Predetermined end point Reason for Test Chest Pain Target HR Formula (220 - Age)*100% Arrhythmias none Resting ECG Normal sinus rhythm Incomplete Left Bundle Branch ST Changes No Significant Changes Overall Impression Indeterminate due to pharmacological stress Chest Pain none HR Response To Exercise BP Response To Exercise ASA metoprolol Atorvastatin Lantus Insulin Confirmed by fellow Dane Albright ([id number]) on 02/11/2019 11:51:23 AM Confirmed by MD BARRERA JORGE [id number]) on 02/26/2019 4:11:04 PM Performing Organization Address City/State/Zipcode Phone Number [facility] CTA chest (02/09/2019 5:07 PM CDT) Specimen Narrative Performed At FINAL REPORT [facility] EXAMINATION: CTA, chest. INDICATION: Chest pain. Evaluate for aortic dissection. TECHNIQUE: Axial noncontrast tomographic images were acquired through the thorax to evaluate for acute aortic mural hemorrhage. Following the administration of IV contrast, axial tomographic images were acquired through the thorax during the early arterial phase of imaging. Postprocessing was performed and coronal / sagittal reformatted images were created and reviewed. 3-dimensional rotational angiographic models of the aorta were also created and reviewed. FINDINGS: Compared with chest CT PE protocol 05/18/2016, chest CTA 10/07/2012 The thoracic aorta is normal in course and caliber. Mild atherosclerotic plaque is noted involving the aortic arch. No evidence of aortic mural hemorrhage, aneurysm, dissection, penetrating ulcer or aortic rupture. The right vertebral artery occludes at its origin, similar to prior studies. Great vessels arising off the aortic arch were otherwise patent where visible. The heart size is normal. No evidence of a pericardial effusion. A focal calcific atherosclerotic plaque is noted at the origin of the left anterior descending coronary artery No evidence of a filling defect/embolus within the pulmonary arteries. The esophagus is decompressed. No evidence of pathologically enlarged mediastinal or axillary lymph nodes. Previously described small opacity in the right upper lobe has resolved. Thin curvilinear opacities are noted in both lungs with a subpleural distribution favoring atelectasis. No evidence of a discrete pneumonia, pulmonary edema, pleural effusion, pneumothorax or pneumomediastinum. No definite evidence of an acute process involving the visualized upper abdomen. There are several chronic appearing right rib fractures with callus. IMPRESSION: No evidence of acute aortic pathology. Redemonstrated chronically occluded right vertebral artery. Calcific atherosclerosis including a plaque at the LAD origin. Signed: Yoav Low MD Report Verified Date/Time:02/09/2019 18:52:58 Reading Location: [address] Reading Room Procedure Note Interface, External Ris In - 02/09/2019 6:55 PM CDT FINAL REPORT EXAMINATION: CTA, chest. INDICATION: Chest pain. Evaluate for aortic dissection. TECHNIQUE: Axial noncontrast tomographic images were acquired through the thorax to evaluate for acute aortic mural hemorrhage. Following the administration of IV contrast, axial tomographic images were acquired through the thorax during the early arterial phase of imaging. Postprocessing was performed and coronal / sagittal reformatted images were created and reviewed. 3-dimensional rotational angiographic models of the aorta were also created and reviewed. FINDINGS: Compared with chest CT PE protocol 05/18/2016, chest CTA 10/07/2012 The thoracic aorta is normal in course and caliber. Mild atherosclerotic plaque is noted involving the aortic arch. No evidence of aortic mural hemorrhage, aneurysm, dissection, penetrating ulcer or aortic rupture. The right vertebral artery occludes at its origin, similar to prior studies. Great vessels arising off the aortic arch were otherwise patent where visible. The heart size is normal. No evidence of a pericardial effusion. A focal calcific atherosclerotic plaque is noted at the origin of the left anterior descending coronary artery No evidence of a filling defect/embolus within the pulmonary arteries. The esophagus is decompressed. No evidence of pathologically enlarged mediastinal or axillary lymph nodes. Previously described small opacity in the right upper lobe has resolved. Thin curvilinear opacities are noted in both lungs with a subpleural distribution favoring atelectasis. No evidence of a discrete pneumonia, pulmonary edema, pleural effusion, pneumothorax or pneumomediastinum. No definite evidence of an acute process involving the visualized upper abdomen. There are several chronic appearing right rib fractures with callus. IMPRESSION: No evidence of acute aortic pathology. Redemonstrated chronically occluded right vertebral artery. Calcific atherosclerosis including a plaque at the LAD origin. Signed: Yoav Low MD Report Verified Date/Time: 02/09/2019 18:52:58 Reading Location: [address] Reading Room Performing Organization Address City/State/Zipcode Phone Number [facility] Rapid drug screen, urine (02/09/2019 10:32 AM CDT) Barbiturate Screen Negative Negative [facility] Benzodiazepine Screen Negative Negative [facility] Cocaine (Metab.) Screen Negative Negative [facility] Methadone Screen Negative Negative [facility] Opiate Screen Positive (A) Negative [facility] Cannabinoid Screen Negative Negative [facility] Amph/Methamph Screen Negative Negative [facility] Phencyclidine Screen Negative Negative [facility] Oxycodone Screen Negative Negative [facility] Specimen Urine Narrative Performed At [facility] CONC. Cocaine 300 ng/mL Teruavnjaxs15 ng/mL Umkassermvwgwe682 ng/mL Barbiturate 200 ng/mL Nqopkcwsloham80 ng/mL Yvdqzf927 ng/mL Methadone 300 ng/mL Amphetamine/ 1000 ng/mL Methamphetamine Oxycodone 300 ng/mL This assay provides an unconfirmed qualitative test result for the clinical management of patients in emergency situations. Chain of custody not maintained. Some nrjq-ufg-gdyaspm medications, as well as adulterants, may cause inaccurate results. Clinical correlation should be applied. A more comprehensive drug screen or confirmation of a detected drug may be performed upon request. Performing Organization Address City/State/Zipcode Phone Number [address] [address] CENTER ECHOCARDIOGRAM REPORT - SCAN (02/07/2019 9:21 PM CDT) Narrative Performed At CT brain without IV contrast (02/07/2019 8:48 PM CDT) Specimen Narrative Performed At FINAL REPORT [facility] CT, CTANGIOBRAIN, CT, CAROTID, ANGIO, CT, BRAIN, WITHOUT CONTRAST BRAIN CT WITHOUT CONTRAST INDICATION: Stroke COMPARISON: CT head of the same date TECHNIQUE: Rapid acquisition spiral images were obtained between the aortic arch and the cranial vertex during intravenous contrast infusion to reconstruct axial images and angiographic 3D maximum intensity projections (MIP). 3-D volumetric reformatted images were created at a dedicated workstation. Precontrast images of the brain were also obtained. Stenosis evaluation reported in compliance with NASCET criteria. DOSE REDUCTION: Dose modulation, iterative reconstruction, and/or weight-based adjustment of the mA/kV was utilized to reduce the radiation dose to as low as reasonably achievable. FINDINGS: NECT BRAIN: No intracranial hemorrhage, midline shift or mass effect. Midline structures are normally developed. Mild chronic microvascular ischemic changes of the periventricular and subcortical white matter are present. No hydrocephalus. Orbits are within normal limits. No obstructive paranasal sinus disease. CTA BRAIN: Internal carotid arteries: Petrous, cavernous and supraclinoid portions patent. Middle cerebral arteries: Bilateral MCA M1-M2 branches demonstrate normal contrast enhancement. Anterior cerebral arteries: Bilateral CJ A1-A2 branches demonstrate normal contrast enhancement. Basilar system: Normal contrast opacification of the vertebrobasilar system. Posterior cerebral arteries: Normal contrast opacification of the bilateral [employer] P1-P2 branches. Venous opacification: Major dural sinuses unremarkable for bolus timing. Additional findings: None. CTA NECK: Common carotid arteries: There is normal contrast opacification of the bilateral common carotid arteries. Cervical internal carotid arteries: Normal contrast opacification of the bilateral cervical internal carotid arteries without significant stenosis by NASCET criteria. There is calcified and noncalcified atherosclerotic plaque at the left carotid bulb and proximal left ICA with approximately 30-40% narrowing of the proximal cervical left ICA. Vertebral arteries: Normal contrast opacification of the bilateral cervical vertebral arteries.Right vertebral artery is nondominant and congenitally diminutive. Arch anatomy: Conventional. Nonvascular findings: No acute findings within the neck soft tissues. Mild degenerative changes of the upper cervical spine. IMPRESSION: No acute intracranial abnormality. Unremarkable CTA of the head and neck. Discussed with neurology by Dr. Watts. Patient was transferred with suspicion for stroke from outside institution and reportedly received TPA throughout the outside institution. No proximal M1 or M2 occlusion is identified. Discussed with neurology on-call by Dr. Watts at 11:38 PM Signed: Marshall Watts MD Report Verified Date/Time:02/06/2019 23:40:34 Reading Location: [facility] B1 [id number] Neuro Reading Room Procedure Note Interface, External Ris In - 02/07/2019 8:48 PM CDT FINAL REPORT CT, CTANGIO BRAIN, CT, CAROTID, ANGIO, CT, BRAIN, WITHOUT CONTRAST BRAIN CT WITHOUT CONTRAST INDICATION: Stroke COMPARISON: CT head of the same date TECHNIQUE: Rapid acquisition spiral images were obtained between the aortic arch and the cranial vertex during intravenous contrast infusion to reconstruct axial images and angiographic 3D maximum intensity projections (MIP). 3-D volumetric reformatted images were created at a dedicated workstation. Precontrast images of the brain were also obtained. Stenosis evaluation reported in compliance with NASCET criteria. DOSE REDUCTION: Dose modulation, iterative reconstruction, and/or weight-based adjustment of the mA/kV was utilized to reduce the radiation dose to as low as reasonably achievable. FINDINGS: NECT BRAIN: No intracranial hemorrhage, midline shift or mass effect. Midline structures are normally developed. Mild chronic microvascular ischemic changes of the periventricular and subcortical white matter are present. No hydrocephalus. Orbits are within normal limits. No obstructive paranasal sinus disease. CTA BRAIN: Internal carotid arteries: Petrous, cavernous and supraclinoid portions patent. Middle cerebral arteries: Bilateral MCA M1-M2 branches demonstrate normal contrast enhancement. Anterior cerebral arteries: Bilateral CJ A1-A2 branches demonstrate normal contrast enhancement. Basilar system: Normal contrast opacification of the vertebrobasilar system. Posterior cerebral arteries: Normal contrast opacification of the bilateral [employer] P1-P2 branches. Venous opacification: Major dural sinuses unremarkable for bolus timing. Additional findings: None. CTA NECK: Common carotid arteries: There is normal contrast opacification of the bilateral common carotid arteries. Cervical internal carotid arteries: Normal contrast opacification of the bilateral cervical internal carotid arteries without significant stenosis by NASCET criteria. There is calcified and noncalcified atherosclerotic plaque at the left carotid bulb and proximal left ICA with approximately 30-40% narrowing of the proximal cervical left ICA. Vertebral arteries: Normal contrast opacification of the bilateral cervical vertebral arteries.Right vertebral artery is nondominant and congenitally diminutive. Arch anatomy: Conventional. Nonvascular findings: No acute findings within the neck soft tissues. Mild degenerative changes of the upper cervical spine. IMPRESSION: No acute intracranial abnormality. Unremarkable CTA of the head and neck. Discussed with neurology by Dr. Watts. Patient was transferred with suspicion for stroke from outside institution and reportedly received TPA throughout the outside institution. No proximal M1 or M2 occlusion is identified. Discussed with neurology on-call by Dr. Watts at 11:38 PM Signed: Marshall Watts MD Report Verified Date/Time: 02/06/2019 23:40:34 Reading Location: [address] Neuro Reading Room Performing Organization Address City/State/[facility] Phone Number RIS Troponin I (02/07/2019 12:53 PM CDT)Only the most recent of2 resultswithin the time period is included. Troponin I 0.02 0.00 - 0.03 ng/mL [facility] Specimen Blood Narrative Performed At Troponin I (TnI) levels must be interpreted [facility] in the context of the presenting symptoms and the clinical findings. Elevated TnI levels indicate myocardial damage, but are not specific for ischemic heart disease. Elevated TnI levels are seen in patients with other cardiac conditions (including myocarditis and congestive heart failure), and slight TnI elevations occur in patients with other conditions, including sepsis, renal failure, acidosis, acute neurological disease, and persistent tachyarrhythmia. Performing Organization Address City/State/Zipcode Phone Number [address] [address] CENTER ECG 12 lead (02/07/2019 11:37 AM CDT) Specimen Narrative Performed At Ventricular Rate 84 BPM GE MUSE Atrial Rate 84 BPM P-R Interval 134 ms QRS Duration 104 ms Q-T Interval 384 ms QTC Calculation(Bazett) 453 ms P [place] 41 degrees R [place] 13 degrees T [place] 32 degrees Normal sinus rhythm Normal ECG No previous ECGs available Confirmed by Mohinder LEMA MICHAEL ([id number]) on 02/08/2019 8:08:22 AM Procedure Note Interface, External Ris In - 02/08/2019 8:08 AM CDT Ventricular Rate 84 BPM Atrial Rate 84 BPM P-R Interval 134 ms QRS Duration 104 ms Q-T Interval 384 ms QTC Calculation(Bazett) 453 ms P [place] 41 degrees R [place] 13 degrees T [place] 32 degrees Normal sinus rhythm Normal ECG No previous ECGs available Confirmed by Mohinder LEMA MICHAEL ([id number]) on 02/08/2019 8:08:22 AM Performing Organization Address City/State/Zipcode Phone Number [facility] Phosphorus (02/07/2019 4:34 AM CDT) Phosphorus 3.0Comment: Specimen slightly 2.3 - 4.7 mg/dL [facility] Specimen Blood Narrative Performed At Fasting [facility] Performing Organization Address City/[facility] Phone Number [address] [address] CENTER Magnesium (02/07/2019 4:34 AM CDT) Magnesium 1.8Comment: Specimen slightly 1.6 - 2.6 mg/dL [facility] Specimen Blood Narrative Performed At Fasting [facility] Performing Organization Address [facility] Phone Number [address] [address] [place] Fasting lipid panel (02/07/2019 4:34 AM CDT) Triglycerides 154Comment: Specimen slightly mg/dL [facility] Cholesterol 163Comment: Specimen slightly mg/dL [facility] HDL 50 mg/dL [facility] LDL Calculated 82 mg/dL [facility] Specimen Blood Narrative Performed At Triglyceride Reference Range: [facility] Low Risk <150 [id number] High Risk 200-499 Very High Risk>=500 Cholesterol Reference Range: Low Risk <200 [id number] High Risk>240 HDL Cholesterol Reference Range: Low Risk >=60 High Risk <40 LDL Cholesterol Reference Range: Optimal<100 Near [id number] [id number] Fdlg165-209 Very High >=190 Fasting Performing Organization Address [facility] Phone Number [address] [address] [place] 2D Echo W/Doppler(CW/PW/Color) (02/07/2019 2:37 AM CDT) Ejection Fraction [facility] ECHO [facility] Specimen Narrative Performed At Transthoracic Echocardiography Report (TTE) [facility] ECHO [facility]ART[facility] Demographics Patient NameURIEL DESHPANDE Date of Study02/07/2019 MISAEL Male Visit [id number] Unknown Room [id number] Number Date of 1965Referring Nikolas Melendez MD Physician 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 Clinical History BUBBLE STUDY. COPD, CVA, DM, HTN HGB 13.1 HCT 38.5 % Contrast Medium: Definity. Amount - 2 ml Height: 69 inches Weight: 94.8 kg (209 lbs) BSA: 2.1 m^2 BMI: 30.86 kg/m^2 HR: 85 bpm BP: 156/70 mmHg Summary The left ventricle is chamber size (by PSLAX dimension) is small (male - LVIDd < 4.2cm) . Mild concentric LV hypertrophy. All of the LV segments contract normally . Estimated LVEF by qualitative assessment is normal (60%) . Grade 1 diastolic dysfunction (impaired relaxation and low-normal LA pressure). Unable to estimate peak systolic PA pressure; inadequate TR velocity signal. IV saline contrast injection was negative for a PFO (patent foramen ovale) at rest and post Valsalva . Signature Findings Left Ventricle The left ventricle is chamber size (by PSLAX di mension) is small (male - LVIDd < 4.2cm) . Mi ld concentric LV hypertrophy. Al l of the LV segments contract normally . Es timated LVEF by qualitative assessment is normal (6 0%) . Gr bianca 1 diastolic dysfunction (impaired relaxation an d low-normal LA pressure). Left AtriumLA size is normal (16-34 ml/m2) . Right VentricleThe right ventricular chamber size and systolic fu nction are within normal limits. Right Atrium RA size is normal. Atrial SeptumIV saline contrast injection was negative for a PFO (p atent foramen ovale) at rest and post Valsalva . Aortic Valve Mild AoV cusp thickening. Mitral Valve Mild MV leaflet thickening. Tricuspid ValveTV structure is normal. Un able to estimate peak systolic PA pressure; in adequate TR velocity signal. Pulmonic Valve Normal PV structure and function by limited views an d Doppler. AortaAortic root size (SInus of Valsalva diameter) is no rmal . PericardiumNo pericardial effusion is visualized. IVC/SVC/PA/PV/PleuralThe estimated RA pressure by IVC dynamics 5-10mmHg . Chambers/Structures Left Atrium LA Dimension: 3.91 cmLA Area: 20.71 cm^2 LA Volume: 66.34 ml LA Vol. Index: 32 ml/m^2 Left Ventricle LVIDd: 3.96 cm LVIDs: 2.65 cm LV Septum Diastolic: 1.3 cm LV PW Diastolic: 1.34 cm LV FS: 33.1 % LVOT Diameter: 2.09 cm Aorta Ao Root S of Ese.: 3.01 cm Doppler/Quantitative Measurements Mitral Valve MV Peak E-Wave: 0.67 m/s MV Peak A-Wave: 0.55 m/s E/A Ratio: 1.2 Peak Gradient: 1.77 mmHg Deceleration Time: 208.5 msec MV Stefan. Peak: Aortic Valve Peak Velocity: 1.3 m/s Mean Velocity: 0.9 m/s Peak Gradient: 6.78 mmHg Mean Gradient: 3.63 mmHg AV Area (continuity): 3.29 cm^2 AV VTI: 22.59 cm AV DVI: 0.96 LVOT Peak Velocity: 1.13 m/s Peak Gradient: 5.07 mmHg Mean Velocity: 0.78 m/s Mean Gradient: 2.71 mmHg LVOT Diameter: 2.09 cmLVOT VTI: 21.65 cm LVOT Area: 3.43 cm^2LVOT SV:74.24 ml LVOT CO: 6.31 l/min LVOT CI: 3 l/min/m^2 Procedure Note Interface, External Ris In - 02/07/2019 1:32 PM CDT Transthoracic Echocardiography Report (TTE) Demographics Patient Name URIEL DESHPANDE Date of Study 02/07/2019 MISAEL Gender Male Visit Number [id number] Race Unknown Room Number 7410 Number Date of 1965 Referring Nikolas Melendez MD Physician 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 Clinical History BUBBLE STUDY. COPD, CVA, DM, HTN HGB 13.1 HCT 38.5 % Contrast Medium: Definity. Amount - 2 ml Height: 69 inches Weight: 94.8 kg (209 lbs) BSA: 2.1 m^2 BMI: 30.86 kg/m^2 HR: 85 bpm BP: 156/70 mmHg Summary The left ventricle is chamber size (by PSLAX dimension) is small (male - LVIDd < 4.2cm) . Mild concentric LV hypertrophy. All of the LV segments contract normally . Estimated LVEF by qualitative assessment is normal (60%) . Grade 1 diastolic dysfunction (impaired relaxation and low-normal LA pressure). Unable to estimate peak systolic PA pressure; inadequate TR velocity signal. IV saline contrast injection was negative for a PFO (patent foramen ovale) at rest and post Valsalva . Signature Findings Left Ventricle The left ventricle is chamber size (by PSLAX dimension) is small (male - LVIDd < 4.2cm) . Mild concentric LV hypertrophy. All of the LV segments contract normally . Estimated LVEF by qualitative assessment is normal (60%) . Grade 1 diastolic dysfunction (impaired relaxation and low-normal LA pressure). Left Atrium LA size is normal (16-34 ml/m2) . Right Ventricle The right ventricular chamber size and systolic function are within normal limits. Right Atrium RA size is normal. Atrial Septum IV saline contrast injection was negative for a PFO (patent foramen ovale) at rest and post Valsalva . Aortic Valve Mild AoV cusp thickening. Mitral Valve Mild MV leaflet thickening. Tricuspid Valve TV structure is normal. Unable to estimate peak systolic PA pressure; inadequate TR velocity signal. Pulmonic Valve Normal PV structure and function by limited views and Doppler. Aorta Aortic root size (SInus of Valsalva diameter) is normal . Pericardium No pericardial effusion is visualized. IVC/SVC/PA/PV/Pleural The estimated RA pressure by IVC dynamics 5-10mmHg . Chambers/Structures Left Atrium LA Dimension: 3.91 cm LA Area: 20.71 cm^2 LA Volume: 66.34 ml LA Vol. Index: 32 ml/m^2 Left Ventricle LVIDd: 3.96 cm LVIDs: 2.65 cm LV Septum Diastolic: 1.3 cm LV PW Diastolic: 1.34 cm LV FS: 33.1 % LVOT Diameter: 2.09 cm Aorta Ao Root S of Ese.: 3.01 cm Doppler/Quantitative Measurements Mitral Valve MV Peak E-Wave: 0.67 m/s MV Peak A-Wave: 0.55 m/s E/A Ratio: 1.2 Peak Gradient: 1.77 mmHg Deceleration Time: 208.5 msec MV Stefan. Peak: Aortic Valve Peak Velocity: 1.3 m/s Mean Velocity: 0.9 m/s Peak Gradient: 6.78 mmHg Mean Gradient: 3.63 mmHg AV Area (continuity): 3.29 cm^2 AV VTI: 22.59 cm AV DVI: 0.96 LVOT Peak Velocity: 1.13 m/s Peak Gradient: 5.07 mmHg Mean Velocity: 0.78 m/s Mean Gradient: 2.71 mmHg LVOT Diameter: 2.09 cm LVOT VTI: 21.65 cm LVOT Area: 3.43 cm^2 LVOT SV:74.24 ml LVOT CO: 6.31 l/min LVOT CI: 3 l/min/m^2 Performing Organization Address City/State/[facility] Phone Number [facility] Vitamin B12 and Folate (02/06/2019 11:56 PM CDT) Vitamin B12 233 213 - 816 pg/mL [facility] Folate 8.5 >=7.0 ng/mL [facility] Specimen Blood Performing Organization Address [facility] Phone Number [address] [address] [phone] CENTER TSH/Free T4 If Indicated (02/06/2019 11:56 PM CDT) TSH 3.84 0.35 - 4.94 uIU/mL [facility] Specimen Blood Performing Organization Address [facility] Phone Number [address] [address] CENTER RPR (02/06/2019 11:56 PM CDT) RPR Nonreactive Nonreactive [facility] Specimen Blood Performing Organization Address [facility] Phone Number [address] [address] [phone] CENTER aPTT (02/06/2019 11:56 PM CDT) PTT 27.1 22.5 - 36.0 seconds [facility] Specimen Blood Performing Organization Address [facility] Phone Number [address] [address] [phone] [place] Prothrombin time/INR (02/06/2019 11:56 PM CDT) Protime 13.6 11.7 - 14.7 seconds [facility] INR 1.1 <=5.9 [facility] Specimen Blood Narrative Performed At RECOMMENDED COUMADIN/WARFARIN INR THERAPY [facility] RANGES STANDARD DOSE: 2.0 - 3.0 Includes: PROPHYLAXIS for venous thrombosis, systemic embolization; TREATMENT for venous thrombosis and/or pulmonary embolus. HIGH RISK: Target INR is 2.5-3.5 for patients with mechanical heart valves. Performing Organization Address City/State/Zipcode Phone Number [address] [address] [place] Hemoglobin A1c (02/06/2019 11:56 PM CDT) Hemoglobin A1C 10.7 (H) 4.3 - 6.1 % [facility] Specimen Blood Performing Organization Address City/State/Zipcode Phone Number [place] [phone] [place] [address] [phone] [place] CTA carotid (02/06/2019 11:14 PM CDT) Specimen Narrative Performed At FINAL REPORT [facility] CT, CTANGIOBRAIN, CT, CAROTID, ANGIO, CT, BRAIN, WITHOUT CONTRAST BRAIN CT WITHOUT CONTRAST INDICATION: Stroke COMPARISON: CT head of the same date TECHNIQUE: Rapid acquisition spiral images were obtained between the aortic arch and the cranial vertex during intravenous contrast infusion to reconstruct axial images and angiographic 3D maximum intensity projections (MIP). 3-D volumetric reformatted images were created at a dedicated workstation. Precontrast images of the brain were also obtained. Stenosis evaluation reported in compliance with NASCET criteria. DOSE REDUCTION: Dose modulation, iterative reconstruction, and/or weight-based adjustment of the mA/kV was utilized to reduce the radiation dose to as low as reasonably achievable. FINDINGS: NECT BRAIN: No intracranial hemorrhage, midline shift or mass effect. Midline structures are normally developed. Mild chronic microvascular ischemic changes of the periventricular and subcortical white matter are present. No hydrocephalus. Orbits are within normal limits. No obstructive paranasal sinus disease. CTA BRAIN: Internal carotid arteries: Petrous, cavernous and supraclinoid portions patent. Middle cerebral arteries: Bilateral MCA M1-M2 branches demonstrate normal contrast enhancement. Anterior cerebral arteries: Bilateral CJ A1-A2 branches demonstrate normal contrast enhancement. Basilar system: Normal contrast opacification of the vertebrobasilar system. Posterior cerebral arteries: Normal contrast opacification of the bilateral [employer] P1-P2 branches. Venous opacification: Major dural sinuses unremarkable for bolus timing. Additional findings: None. CTA NECK: Common carotid arteries: There is normal contrast opacification of the bilateral common carotid arteries. Cervical internal carotid arteries: Normal contrast opacification of the bilateral cervical internal carotid arteries without significant stenosis by NASCET criteria. There is calcified and noncalcified atherosclerotic plaque at the left carotid bulb and proximal left ICA with approximately 30-40% narrowing of the proximal cervical left ICA. Vertebral arteries: Normal contrast opacification of the bilateral cervical vertebral arteries.Right vertebral artery is nondominant and congenitally diminutive. Arch anatomy: Conventional. Nonvascular findings: No acute findings within the neck soft tissues. Mild degenerative changes of the upper cervical spine. IMPRESSION: No acute intracranial abnormality. Unremarkable CTA of the head and neck. Discussed with neurology by Dr. Watts. Patient was transferred with suspicion for stroke from outside institution and reportedly received TPA throughout the outside institution. No proximal M1 or M2 occlusion is identified. Discussed with neurology on-call by Dr. Watts at 11:38 PM Signed: Marshall Watts MD Report Verified Date/Time:02/06/2019 23:40:34 Reading Location: [address] Neuro Reading Room Procedure Note Interface, External Ris In - 02/07/2019 8:[address] PM [address] FINAL REPORT CT, CTANGIO BRAIN, CT, CAROTID, ANGIO, CT, BRAIN, WITHOUT CONTRAST BRAIN CT WITHOUT CONTRAST INDICATION: Stroke COMPARISON: CT head of the same date TECHNIQUE: Rapid acquisition spiral images were obtained between the aortic arch and the cranial vertex during intravenous contrast infusion to reconstruct axial images and angiographic 3D maximum intensity projections (MIP). 3-D volumetric reformatted images were created at a dedicated workstation. Precontrast images of the brain were also obtained. Stenosis evaluation reported in compliance with NASCET criteria. DOSE REDUCTION: Dose modulation, iterative reconstruction, and/or weight-based adjustment of the mA/kV was utilized to reduce the radiation dose to as low as reasonably achievable. FINDINGS: NECT BRAIN: No intracranial hemorrhage, midline shift or mass effect. Midline structures are normally developed. Mild chronic microvascular ischemic changes of the periventricular and subcortical white matter are present. No hydrocephalus. Orbits are within normal limits. No obstructive paranasal sinus disease. CTA BRAIN: Internal carotid arteries: Petrous, cavernous and supraclinoid portions patent. Middle cerebral arteries: Bilateral MCA M1-M2 branches demonstrate normal contrast enhancement. Anterior cerebral arteries: Bilateral CJ A1-A2 branches demonstrate normal contrast enhancement. Basilar system: Normal contrast opacification of the vertebrobasilar system. Posterior cerebral arteries: Normal contrast opacification of the bilateral [employer] [address] P1-P2 branches. Venous opacification: Major dural sinuses unremarkable for bolus timing. Additional findings: None. CTA NECK: Common carotid arteries: There is normal contrast opacification of the bilateral common carotid arteries. Cervical internal carotid arteries: Normal contrast opacification of the bilateral cervical internal carotid arteries without significant stenosis by NASCET criteria. There is calcified and noncalcified atherosclerotic plaque at the left carotid bulb and proximal left ICA with approximately 30-40% narrowing of the proximal cervical left ICA. Vertebral arteries: Normal contrast opacification of the bilateral cervical vertebral arteries.Right vertebral artery is nondominant and congenitally diminutive. Arch anatomy: Conventional. Nonvascular findings: No acute findings within the neck soft tissues. Mild degenerative changes of the upper cervical spine. IMPRESSION: No acute intracranial abnormality. Unremarkable CTA of the head and neck. Discussed with neurology by Dr. Watts. Patient was transferred with suspicion for stroke from outside institution and reportedly received TPA throughout the outside institution. No proximal M1 or M2 occlusion is identified. Discussed with neurology on-call by Dr. Watts at 11:38 PM Signed: Marshall Watts MD Report Verified Date/Time: 02/06/2019 23:40:34 Reading Location: [address] Neuro Reading Room Performing Organization Address City/State/Zipcode Phone Number [facility] CTA brain (02/06/2019 11:14 PM CDT) Specimen Narrative Performed At FINAL REPORT [facility] CT, CTANGIOBRAIN, CT, CAROTID, ANGIO, CT, BRAIN, WITHOUT CONTRAST BRAIN CT WITHOUT CONTRAST INDICATION: Stroke COMPARISON: CT head of the same date TECHNIQUE: Rapid acquisition spiral images were obtained between the aortic arch and the cranial vertex during intravenous contrast infusion to reconstruct axial images and angiographic 3D maximum intensity projections (MIP). 3-D volumetric reformatted images were created at a dedicated workstation. Precontrast images of the brain were also obtained. Stenosis evaluation reported in compliance with NASCET criteria. DOSE REDUCTION: Dose modulation, iterative reconstruction, and/or weight-based adjustment of the mA/kV was utilized to reduce the radiation dose to as low as reasonably achievable. FINDINGS: NECT BRAIN: No intracranial hemorrhage, midline shift or mass effect. Midline structures are normally developed. Mild chronic microvascular ischemic changes of the periventricular and subcortical white matter are present. No hydrocephalus. Orbits are within normal limits. No obstructive paranasal sinus disease. CTA BRAIN: Internal carotid arteries: Petrous, cavernous and supraclinoid portions patent. Middle cerebral arteries: Bilateral MCA M1-M2 branches demonstrate normal contrast enhancement. Anterior cerebral arteries: Bilateral CJ A1-A2 branches demonstrate normal contrast enhancement. Basilar system: Normal contrast opacification of the vertebrobasilar system. Posterior cerebral arteries: Normal contrast opacification of the bilateral [employer] [address] [employer] P1-P2 branches. Venous opacification: Major dural sinuses unremarkable for bolus timing. Additional findings: None. CTA NECK: Common carotid arteries: There is normal contrast opacification of the bilateral common carotid arteries. Cervical internal carotid arteries: Normal contrast opacification of the bilateral cervical internal carotid arteries without significant stenosis by NASCET criteria. There is calcified and noncalcified atherosclerotic plaque at the left carotid bulb and proximal left ICA with approximately 30-40% narrowing of the proximal cervical left ICA. Vertebral arteries: Normal contrast opacification of the bilateral cervical vertebral arteries.Right vertebral artery is nondominant and congenitally diminutive. Arch anatomy: Conventional. Nonvascular findings: No acute findings within the neck soft tissues. Mild degenerative changes of the upper cervical spine. IMPRESSION: No acute intracranial abnormality. Unremarkable CTA of the head and neck. Discussed with neurology by Dr. Watts. Patient was transferred with suspicion for stroke from outside institution and reportedly received TPA throughout the outside institution. No proximal M1 or M2 occlusion is identified. Discussed with neurology on-call by Dr. Watts at 11:38 PM Signed: Marshall Watts MD Report Verified Date/Time:02/06/2019 23:40:34 Reading Location: [facility] [id number] Neuro Reading Room Procedure Note Interface, External Ris In - 02/07/2019 8:[address] PM CDT FINAL REPORT CT, CTANGIO BRAIN, CT, CAROTID, ANGIO, CT, BRAIN, WITHOUT CONTRAST BRAIN CT WITHOUT CONTRAST INDICATION: Stroke COMPARISON: CT head of the same date TECHNIQUE: Rapid acquisition spiral images were obtained between the aortic arch and the cranial vertex during intravenous contrast infusion to reconstruct axial images and angiographic 3D maximum intensity projections (MIP). 3-D volumetric reformatted images were created at a dedicated workstation. Precontrast images of the brain were also obtained. Stenosis evaluation reported in compliance with NASCET criteria. DOSE REDUCTION: Dose modulation, iterative reconstruction, and/or weight-based adjustment of the mA/kV was utilized to reduce the radiation dose to as low as reasonably achievable. FINDINGS: NECT BRAIN: No intracranial hemorrhage, midline shift or mass effect. Midline structures are normally developed. Mild chronic microvascular ischemic changes of the periventricular and subcortical white matter are present. No hydrocephalus. Orbits are within normal limits. No obstructive paranasal sinus disease. CTA BRAIN: Internal carotid arteries: Petrous, cavernous and supraclinoid portions patent. Middle cerebral arteries: Bilateral MCA M1-M2 branches demonstrate normal contrast enhancement. Anterior cerebral arteries: Bilateral CJ A1-A2 branches demonstrate normal contrast enhancement. Basilar system: Normal contrast opacification of the vertebrobasilar system. Posterior cerebral arteries: Normal contrast opacification of the bilateral [address] [employer] P1-P2 branches. Venous opacification: Major dural sinuses unremarkable for bolus timing. Additional findings: None. CTA NECK: Common carotid arteries: There is normal contrast opacification of the bilateral common carotid arteries. Cervical internal carotid arteries: Normal contrast opacification of the bilateral cervical internal carotid arteries without significant stenosis by NASCET criteria. There is calcified and noncalcified atherosclerotic plaque at the left carotid bulb and proximal left ICA with approximately 30-40% narrowing of the proximal cervical left ICA. Vertebral arteries: Normal contrast opacification of the bilateral cervical vertebral arteries.Right vertebral artery is nondominant and congenitally diminutive. Arch anatomy: Conventional. Nonvascular findings: No acute findings within the neck soft tissues. Mild degenerative changes of the upper cervical spine. IMPRESSION: No acute intracranial abnormality. Unremarkable CTA of the head and neck. Discussed with neurology by Dr. Watts. Patient was transferred with suspicion for stroke from outside institution and reportedly received TPA throughout the outside institution. No proximal M1 or M2 occlusion is identified. Discussed with neurology on-call by Dr. Watts at 11:38 PM Signed: Marshall Watts MD Report Verified Date/Time: 02/06/2019 23:40:34 Reading Location: [id number] Neuro Reading Room Performing Organization Address City/State/Zipcode Phone Number GE RIS after 06/20/2018 Insurance Payer Benefit Plan / Subscriber ID Type Phone Address Group BLUE CROSS/BLUE BCBS OS POS/PPO/EPO xxxxxxxxxxxx PPO [phone] [address] [place] [address] PENDING [facility] xxxxxxxxx ADMIT Advance Directives For more information, please contact:[address] [phone] Code Status Date Activated Date Inactivated Comments Full Code 02/06/2019 10:08 PM 02/12/2019 1:18 PM This code status was determined by: Patient Full Code 05/18/2016 2:19 PM 05/19/2016 7:26 PM This code status was determined by: Patient Full Code 05/17/2016 6:34 PM 05/18/2016 2:19 PM This code status was determined by: Patient
[2019-06-21] MEDS ORDERED: MORPHINE 4 MG/ML SYR ONE (04:33)
[2019-06-21] MEDS ORDERED: CIPROFLOXACIN 400mg IV 400 MG/200 ML BAG IV ONE (04:34)
[2019-06-21] MEDS ORDERED: METRONIDAZOLE 500mg IVPB 500 MG/100 ML BAG IV ONE (04:34)
[2019-06-21] MEDS ORDERED: NA CHLORIDE 0.9% 2,000 ML ONE (04:34)
[2019-06-21] MEDS ORDERED: PANTOPRAZOLE 40 MG INJ ONE (04:34)
[2019-06-21] MEDS ORDERED: ONDANSETRON 4 MG/2 ML VIAL ONE (04:34)
[2019-06-21 04:43] LABS: Absolute Lymphocytes (CBC) 0.4 K/uL (0.7-4.9); Basophils % 0.9 % (0-1.3); Hematocrit 41.3 % (39.6-49.0); Lymphocytes % 10.1 % (15.3-44.8); MPV 10.8 fL (7.6-11.3); RBC Red Blood Cell Count 4.26 M/uL (4.33-5.43)
[2019-06-21 04:46] LABS: Protime INR 1.04
[2019-06-21 05:00] LABS: ALT/SGPT 29 U/L (12-78); AST/SGOT 18 U/L (15-37); Albumin 3.5 g/dL (3.4-5.0); Alkaline Phosphatase 86 U/L (45-117); BUN Blood Urea Nitrogen 12 mg/dL (7-18); Bicarbonate 24 mmol/L (21-32); Bilirubin Direct 0.3 mg/dL (0-0.2); Bilirubin Total 1.1 mg/dL (0.2-1.0); Glucose Level 281 mg/dL (74-106); Lipase 71 U/L (73-393); Potassium 4.1 mmol/L (3.5-5.1); Protein, Total 7.3 g/dL (6.4-8.2); Sodium Level 133 mmol/L (136-145)
[2019-06-21 05:05] LABS: NT PRO-BNP 68 pg/mL (<125); Troponin (Emerg Dept Use Only) < 0.02 ng/mL (0.0-0.045)
[2019-06-21 05:12] LABS: Blood Morphology Comment NOT SEEN (NOT SEEN); Platelet Estimate ADEQ; Urine White Blood Cell Casts OK
[2019-06-21] MEDS ORDERED: MORPHINE 2 MG/ML SYR ONE ×2 (05:20→06:58)
--- NOTE | 2019-06-21 07:11 | RAD REPORT ---
EXAM DESCRIPTION: CT - Abdomen Pelvis W Contrast - 06/21/2019 6:43 am CLINICAL HISTORY: ABD PAIN COMPARISON: CT dissection study March 29 TECHNIQUE: Biphasic, helical CT imaging of the abdomen and pelvis was performed following 100 ml non -ionic IV contrast. Oral contrast given. All CT scans are performed using dose optimization technique as appropriate and may include automated exposure control or mA/KV adjustment according to patient size. FINDINGS: No suspicious findings in the lung bases. Liver shows a very pronounced diffuse fatty infiltration pattern. No focal liver lesions. The spleen and pancreas show no suspicious findings. Gallbladder and biliary tree are also without suspicious fi nding. Accessory splenic nodule present along with splenic granulomatous calcifications. Symmetric renal function is seen with no hydronephrosis or suspicious renal mass. No pyelonephritis o r acute parenchymal process. A 6 millimeter nonobstructing calyx calcification seen in the mid left k idney. No acute renal parenchymal findings. No bladder calculus or bladder abnormality seen. Prostate gland and seminal vesicles within normal range. No adrenal abnormalities. No stomach or small bowel acute finding. Small sub centimeter mesenteric lymph nodes are present. The appendix is normal. No acute colon finding seen. No free air, free fluid or inflammatory stranding. No mass or bulky lymphadenopathy. Patient has a 4 centimeter fat only umbilical hernia. Neck is 1.8 cm. No acute bone findings. No aneurysm or acute vascular finding seen. IMPRESSION: No appendicitis, free air or other surgically emergent finding. Diffuse fatty infiltration of the liver. Small mesenteric lymph nodes are present in the central abdomen. No bowel abnormality seen.
--- NOTE | 2019-06-21 08:35 | ER ---
Nurse's Notes [facility] Name: Chi Diaz Age: 53 yrs Sex: Male : 1965 Arrival Date: 06/21/2019 Time: 03:48 Bed 5 Private MD: None, None Diagnosis: Abdominal tenderness;Vomiting Presentation: 06/21 03:50 Presenting complaint: Patient states: that 2 days ago he started to have upper abd fc pain. The pain is now going from the center around the left side to the back. Pt also having nausea, vomiting and diarrhea. Transition of care: patient was not received from another setting of care. Onset of symptoms was June 19, 2019. Risk Assessment: Do you want to hurt yourself or someone else? Patient reports no desire to harm self or others. Initial Sepsis Screen: Does the patient meet any 2 criteria? HR > 90 bpm. Yes Does the patient have a suspected source of infection? No. Patient's initial sepsis screen is negative. Care prior to arrival: None. 03:50 Method Of Arrival: Ambulatory fc 03:50 Acuity: SIDNEY 3 fc Historical: - Allergies: 04:10 PENICILLINS; fc - Home Meds: 04:10 metformin 500 mg oral tab 1 tab 2 times per day [Active]; lisinopril 20 mg Oral tab 1 fc tab once daily [Active]; - PMHx: 04:10 CVA; Hypertension; Myocardial infarction; Ulcers; Diabetes - NIDDM; fc - PSHx: 04:10 foot sx right; partial gastrectomy; fc - Immunization history:: Last tetanus immunization: up to date. - Social history:: Smoking status: Patient/guardian denies using tobacco, Patient uses alcohol, occasionally. Patient/guardian denies using street drugs. - Ebola Screening: : Patient negative for fever greater than or equal to 101.5 degrees Fahrenheit, and additional compatible Ebola Virus Disease symptoms Patient denies exposure to infectious person Patient denies travel to an Ebola-affected area in the 21 days before illness onset. Screenin:08 Abuse screen: Denies threats or abuse. Nutritional screening: No deficits noted. fc Tuberculosis screening: No symptoms or risk factors identified. Fall Risk None identified. Assessment: 03:50 General: Appears in no apparent distress. uncomfortable, Behavior is calm, cooperative, rr5 appropriate for age. 03:50 Pain: Complains of pain in epigastric area Pain radiates to left mid back Pain rr5 currently is 9 out of 10 on a pain scale. Quality of pain is described as aching, Pain began 2-3 days ago. Is intermittent. Neuro: Level of Consciousness is awake, alert, obeys commands, Oriented to person, place, time, situation, Appropriate for age. Cardiovascular: Capillary refill < 3 seconds Patient's skin is warm and dry. Respiratory: Airway is patent Respiratory effort is even, unlabored, Respiratory pattern is regular, symmetrical. GI: Abdomen is round Bowel sounds present X 4 quads. Abd is soft and non tender X 4 quads. Reports upper abdominal pain, diarrhea, gaseousness, nausea, vomiting. : No signs and/or symptoms were reported regarding the genitourinary system. EENT: No signs and/or symptoms were reported regarding the EENT system. Derm: Skin is intact, Skin temperature is warm. Musculoskeletal: Circulation, motion, and sensation intact. Capillary refill < 3 seconds. 04:50 Reassessment: Patient appears in no apparent distress at this time. medication given as rr5 stat dose. 04:50 Pain: Complains of pain in abdomen Pain radiates to back Pain currently is 9 out of 10 rr5 on a pain scale. Quality of pain is described as aching. 05:20 Reassessment: Patient appears in no apparent distress at this time. complaints of rr5 abdominal pain pain score 7/10. reassess by ED provider with order made and carried out. Patient states symptoms have not improved. 06:23 Reassessment: Patient and/or family updated on plan of care and expected duration. Pain ea level reassessed. Patient is alert, oriented x 3, equal unlabored respirations, skin warm/dry/pink. 06:28 Reassessment: Patient and/or family updated on plan of care and expected duration. Pain ea level reassessed. Patient is alert, oriented x 3, equal unlabored respirations, skin warm/dry/pink. Pt taken to CT. 06:28 Reassessment: Patient states feeling better. Patient states symptoms have improved. rr5 06:50 Reassessment: Patient and/or family updated on plan of care and expected duration. Pain ea level reassessed. Patient is alert, oriented x 3, equal unlabored respirations, skin warm/dry/pink. Pt returned from CT, awaiting on results. 07:00 Reassessment: complaints of abdominal pain after the CT scan. pain score 7/10. rr5 medication given see NOV. 08:00 Reassessment: Patient appears in no apparent distress at this time. Patient and/or sg family updated on plan of care and expected duration. Pain level reassessed. Patient is alert, oriented x 3, equal unlabored respirations, skin warm/dry/pink. Patient states feeling better. Vital Signs: 03:50 BP 152 / 103; Pulse 107; Resp 20; Temp 98.3(O); Pulse Ox 99% on R/A; Weight 104.33 kg fc (R); Height 5 ft. 9 in. (175.26 cm) (R); Pain 8/10; 04:50 BP 145 / 76; Pulse 102; Resp 19; Pulse Ox 98% ; Pain 9/10; rr5 05:20 BP 119 / 78; Pulse 98; Resp 19; Pulse Ox 96% ; Pain 7/10; rr5 06:24 BP 132 / 86; Pulse 90; Resp 18; Pulse Ox 98% on R/A; ea 07:00 BP 147 / 90; Pulse 91; Resp 16; Pulse Ox 99% ; Pain 7/10; rr5 08:00 BP 137 / 83; Pulse 88; Resp 15; Pulse Ox 96% on R/A; sg 03:50 Body Mass Index 33.96 (104.33 kg, 175.26 cm) ED Course: 03:48 Patient arrived in ED. mr 03:48 None, None is Private Physician. mr 03:50 Arm band placed on Patient placed in an exam room, on a stretcher. fc 04:04 Floyd Galeas RN is Primary Nurse. rr5 04:07 Triage completed. fc 04:08 Patient has correct armband on for positive identification. Placed in gown. Bed in low fc position. Call light in reach. Pulse ox on. NIBP on. 04:08 No provider procedures requiring assistance completed. fc 04:14 Kennedy Alva MD is Attending Physician. [facility] 04:19 Inserted saline lock: 20 gauge in right antecubital area, using aseptic technique. ea Blood collected. 04:37 X-ray completed. Portable x-ray completed in exam room. Patient tolerated procedure kw well. 04:38 XRAY Chest (1 view) In Process Unspecified. EDMS 04:55 phototypesetting equipment monitor on. rr5 05:00 Oral contrast reported to be complete. eh 06:41 CT completed. Patient tolerated procedure well. Patient moved to CT via wheelchair. Patient moved back from CT. 06:44 CT Abd/Pelvis - PO and IV Contrast In Process Unspecified. EDMS 08:19 ED physician to see patient. sg 08:34 Xavier Matson MD is Referral Physician. cal 08:34 Aníbal Cavazos MD is Referral Physician. cal 08:41 IV discontinued, intact, bleeding controlled, No redness/swelling at site. Pressure sg dressing applied. Administered Medications: 04:40 Drug: NS 0.9% 1000 ml Route: IV; Rate: 1 bolus; Site: right antecubital; rr5 05:46 Follow up: Response: No adverse reaction; IV Status: Completed infusion; IV Intake: rr5 1000ml 04:40 Drug: ProTONIX 40 mg Route: IVP; Site: right antecubital; rr5 05:46 Follow up: Response: No adverse reaction rr5 04:48 Drug: Zofran 4 mg Route: IVP; Site: right antecubital; rr5 05:44 Follow up: Response: No adverse reaction; Nausea is decreased; Vomiting decreased rr5 04:50 Drug: morphine 4 mg {Note: rass 0.} Route: IVP; Site: right antecubital; rr5 05:25 Follow up: Response: No adverse reaction; Pain is unchanged, physician notified; RASS: rr5 Alert and Calm (0) 04:52 Drug: Flagyl 500 mg Volume: 100 ml; Route: IVPB; Rate: 200 ml/hr; Infused Over: 30 rr5 mins; Site: right antecubital; 05:30 Follow up: Response: No adverse reaction; IV Status: Completed infusion; IV Intake: rr5 100ml 05:25 Drug: morphine 2 mg {Note: rass 0.} Route: IVP; Site: right antecubital; rr5 05:45 Drug: Cipro 400 mg Volume: 200 ml; Route: IVPB; Infused Over: 60 mins; Site: right rr5 antecubital; 07:00 Follow up: Response: No adverse reaction; IV Status: Completed infusion sg 05:46 Drug: NS 0.9% 1000 ml Route: IV; Rate: 125 ml/hr; Site: right antecubital; rr5 08:50 Follow up: Response: No adverse reaction; IV Status: Order to discontinue infusion sg 07:02 Drug: morphine 2 mg Route: IVP; Site: right antecubital; rr5 08:50 Follow up: Response: No adverse reaction; Pain is decreased; RASS: Alert and Calm (0) sg Intake: 05:30 IV: 100ml; Total: 100ml. rr5 05:46 IV: 1000ml; Total: 1100ml. rr5 Outcome: 08:35 Discharge ordered by MD. mccall 08:40 Discharged to home ambulatory. 08:40 Condition: good 08:40 Discharge instructions given to patient, Instructed on discharge instructions, follow up and referral plans. medication usage, safety practices, Demonstrated understanding of instructions, follow-up care, medications, Prescriptions given X 4. 08:50 Patient left the ED. hb Signatures: Dispatcher [employer] EDMS Darin Darden RN RN Kennedy Alva MD MD cha Rivera, Andreea mr Xin, Kasandra Vivas RN Suzette Gage Heather, RN RN Jami Irving RN RN ea Roque, Raymond, RN RN rr5
--- NOTE | 2019-06-21 08:37 | EDPHYS ---
Physician Documentation [facility] Name: Chi Diaz Age: 53 yrs Sex: Male : 1965 Arrival Date: 06/21/2019 Time: 03:48 Bed 5 Private MD: None, None ED Physician Kennedy Alva HPI: 06/21 04:27 This 53 yrs old Male presents to ER via Ambulatory with complaints of cal Abdominal Pain, Vomiting. 04:27 The patient presents to the emergency department with nausea, vomiting, that is cal continuous, abdominal pain, of the epigastric area, right upper quadrant and left upper quadrant. Onset: The symptoms/episode began/occurred 3 day(s) ago. Possible causes: unknown. The symptoms are aggravated by movement, pressure, food , The symptoms are alleviated by nothing. remaining still. Associated signs and symptoms: The patient has no apparent associated signs or symptoms. Severity of symptoms: At their worst the symptoms were moderate in the emergency department the symptoms are unchanged. The patient has not experienced similar symptoms in the past. Historical: - Allergies: 04:10 PENICILLINS; fc - Home Meds: 04:10 metformin 500 mg oral tab 1 tab 2 times per day [Active]; lisinopril 20 mg Oral tab 1 fc tab once daily [Active]; - PMHx: 04:10 CVA; Hypertension; Myocardial infarction; Ulcers; Diabetes - NIDDM; fc - PSHx: 04:10 foot sx right; partial gastrectomy; fc - Immunization history:: Last tetanus immunization: up to date. - Social history:: Smoking status: Patient/guardian denies using tobacco, Patient uses alcohol, occasionally. Patient/guardian denies using street drugs. - Ebola Screening: : Patient negative for fever greater than or equal to 101.5 degrees Fahrenheit, and additional compatible Ebola Virus Disease symptoms Patient denies exposure to infectious person Patient denies travel to an Ebola-affected area in the 21 days before illness onset. ROS: 04:28 Constitutional: Negative for fever, chills, and weight loss, Eyes: Negative for injury, cal pain, redness, and discharge, ENT: Negative for injury, pain, and discharge, Neck: Negative for injury, pain, and swelling, Cardiovascular: Negative for chest pain, palpitations, and edema, Respiratory: Negative for shortness of breath, cough, wheezing, and pleuritic chest pain, Back: Negative for injury and pain, : Negative for injury, bleeding, discharge, and swelling, MS/Extremity: Negative for injury and deformity, Skin: Negative for injury, rash, and discoloration, Neuro: Negative for headache, weakness, numbness, tingling, and seizure, Psych: Negative for depression, anxiety, suicide ideation, homicidal ideation, and hallucinations, Allergy/Immunology: Negative for hives, rash, and allergies, Endocrine: Negative for neck swelling, polydipsia, polyuria, polyphagia, and marked weight changes, Hematologic/Lymphatic: Negative for swollen nodes, abnormal bleeding, and unusual bruising. 04:28 Abdomen/GI: Positive for abdominal pain, nausea and vomiting, of the epigastric area, right upper quadrant and left upper quadrant. Exam: 04:28 Constitutional: This is a well developed, well nourished patient who is awake, alert, cal and in no acute distress. Head/Face: Normocephalic, atraumatic. Eyes: Pupils equal round and reactive to light, extra-ocular motions intact. Lids and lashes normal. Conjunctiva and sclera are non-icteric and not injected. Cornea within normal limits. Periorbital areas with no swelling, redness, or edema. ENT: Nares patent. No nasal discharge, no septal abnormalities noted. Tympanic membranes are normal and external auditory canals are clear. Oropharynx with no redness, swelling, or masses, exudates, or evidence of obstruction, uvula midline. Mucous membranes moist. Neck: Trachea midline, no thyromegaly or masses palpated, and no cervical lymphadenopathy. Supple, full range of motion without nuchal rigidity, or vertebral point tenderness. No Meningismus. Chest/axilla: Normal chest wall appearance and motion. Nontender with no deformity. No lesions are appreciated. Respiratory: Lungs have equal breath sounds bilaterally, clear to auscultation and percussion. No rales, rhonchi or wheezes noted. No increased work of breathing, no retractions or nasal flaring. Back: No spinal tenderness. No costovertebral tenderness. Full range of motion. Male : Normal genitalia with no discharge or lesions. Skin: Warm, dry with normal turgor. Normal color with no rashes, no lesions, and no evidence of cellulitis. MS/ Extremity: Pulses equal, no cyanosis. Neurovascular intact. Full, normal range of motion. Neuro: Awake and alert, GCS 15, oriented to person, place, time, and situation. Cranial nerves II-XII grossly intact. Motor strength 5/5 in all extremities. Sensory grossly intact. Cerebellar exam normal. Normal gait. Psych: Awake, alert, with orientation to person, place and time. Behavior, mood, and affect are within normal limits. 04:28 Cardiovascular: Rate: tachycardic, Rhythm: regular, Pulses: Pulses are 4+ in bilateral radial, brachial, femoral, popliteal, posterior tibial and and dorsalis pedis arteries.. Heart sounds: normal, Edema: is not appreciated, JVD: is not appreciated. Vital Signs: 03:50 BP 152 / 103; Pulse 107; Resp 20; Temp 98.3(O); Pulse Ox 99% on R/A; Weight 104.33 kg fc (R); Height 5 ft. 9 in. (175.26 cm) (R); Pain 8/10; 04:50 BP 145 / 76; Pulse 102; Resp 19; Pulse Ox 98% ; Pain 9/10; rr5 05:20 BP 119 / 78; Pulse 98; Resp 19; Pulse Ox 96% ; Pain 7/10; rr5 06:24 BP 132 / 86; Pulse 90; Resp 18; Pulse Ox 98% on R/A; ea 07:00 BP 147 / 90; Pulse 91; Resp 16; Pulse Ox 99% ; Pain 7/10; rr5 08:00 BP 137 / 83; Pulse 88; Resp 15; Pulse Ox 96% on R/A; sg 03:50 Body Mass Index 33.96 (104.33 kg, 175.26 cm) MDM: 04:14 Patient medically screened. [facility] 04:28 Data reviewed: vital signs, nurses notes, lab test result(s), EKG, radiologic studies, [facility] CT scan, plain films. 06/21 04:10 Order name: Basic Metabolic Panel; Complete Time: 05:11 06/21 04:10 Order name: CBC with Diff; Complete Time: 07:12 06/21 04:10 Order name: Creatinine for Radiology; Complete Time: 05:11 06/21 04:10 Order name: Hepatic Function; Complete Time: 05:11 06/21 04:10 Order name: Lipase; Complete Time: 05:11 06/21 04:27 Order name: Magnesium; Complete Time: 05:11 [facility] 06/21 04:27 Order name: NT PRO-BNP; Complete Time: 05:11 [facility] 06/21 04:27 Order name: PT-INR; Complete Time: 05:01 [facility] 06/21 04:27 Order name: Troponin (emerg Dept Use Only); Complete Time: 05:11 [facility] 06/21 04:27 Order name: XRAY Chest (1 view) [facility] 06/21 04:27 Order name: CT Abd/Pelvis - PO and IV Contrast; Complete Time: 08:16 [facility] 06/21 05:12 Order name: CBC Smear Scan; Complete Time: 07:12 [facility] 06/21 04:10 Order name: IV Saline Lock; Complete Time: 04:18 06/21 04:10 Order name: Labs collected and sent; Complete Time: 04:18 06/21 04:27 Order name: EKG; Complete Time: 04:28 [facility] 06/21 04:27 Order name: Cardiac monitoring; Complete Time: 04:53 [facility] 06/21 04:27 Order name: EKG - Nurse/Tech; Complete Time: 04:46 [facility] 06/21 04:27 Order name: O2 Per Protocol; Complete Time: 04:28 [facility] 06/21 04:27 Order name: O2 Sat Monitoring; Complete Time: 04:28 [facility] Administered Medications: 04:40 Drug: NS 0.9% 1000 ml Route: IV; Rate: 1 bolus; Site: right antecubital; rr5 05:46 Follow up: Response: No adverse reaction; IV Status: Completed infusion; IV Intake: rr5 1000ml 04:40 Drug: ProTONIX 40 mg Route: IVP; Site: right antecubital; rr5 05:46 Follow up: Response: No adverse reaction rr5 04:48 Drug: Zofran 4 mg Route: IVP; Site: right antecubital; rr5 05:44 Follow up: Response: No adverse reaction; Nausea is decreased; Vomiting decreased rr5 04:50 Drug: morphine 4 mg {Note: rass 0.} Route: IVP; Site: right antecubital; rr5 05:25 Follow up: Response: No adverse reaction; Pain is unchanged, physician notified; RASS: rr5 Alert and Calm (0) 04:52 Drug: Flagyl 500 mg Volume: 100 ml; Route: IVPB; Rate: 200 ml/hr; Infused Over: 30 rr5 mins; Site: right antecubital; 05:30 Follow up: Response: No adverse reaction; IV Status: Completed infusion; IV Intake: rr5 100ml 05:25 Drug: morphine 2 mg {Note: rass 0.} Route: IVP; Site: right antecubital; rr5 05:45 Drug: Cipro 400 mg Volume: 200 ml; Route: IVPB; Infused Over: 60 mins; Site: right rr5 antecubital; 07:00 Follow up: Response: No adverse reaction; IV Status: Completed infusion sg 05:46 Drug: NS 0.9% 1000 ml Route: IV; Rate: 125 ml/hr; Site: right antecubital; rr5 08:50 Follow up: Response: No adverse reaction; IV Status: Order to discontinue infusion sg 07:02 Drug: morphine 2 mg Route: IVP; Site: right antecubital; rr5 08:50 Follow up: Response: No adverse reaction; Pain is decreased; RASS: Alert and Calm (0) Disposition: 06/21/19 08:35 Discharged to Home. Impression: Abdominal tenderness, Vomiting. - Condition is Stable. - Discharge Instructions: Abdominal Pain, Adult, Nausea and Vomiting, Adult, Nausea and Vomiting, Adult, [id number], Abdominal Pain, Adult, [id number]. - Prescriptions for Bentyl 20 mg Oral Tablet - take 1 tablet by ORAL route every 6 hours As needed; 20 tablet. Protonix 40 mg Oral Tablet - take 1 tablet by ORAL route once daily; 30 tablet. Tylenol- Codeine #3 300-30 mg Oral Tablet - take 2 tablets by ORAL route every 6 hours As needed; 24 tablet. Zofran 4 mg Oral Tablet - take 1 tablet by ORAL route every 12 hours As needed; 20 tablet. - Work release form, Medication Reconciliation Form, Thank You Letter, Antibiotic Education, Prescription Opioid Use form. - Follow up: Xavier Matson MD; When: 2 - 3 days; Reason: Recheck today's complaints, Continuance of care, Re-evaluation by your physician. Follow up: Aníbal Cavazos MD; When: 2 - 3 days; Reason: Recheck today's complaints, Re-evaluation by your physician. - Problem is new. - Symptoms have improved. Signatures: Dispatcher [employer] Kennedy Atkins MD MD cha Chretien, Felicia, RN RN Madonna Gonzalez, ELDER RN Jami Irving, RN RN Floyd Ramsay, RN RN rr5 Darin Darden RN sg Corrections: (The following items were deleted from the chart) 08:50 08:35 06/21/2019 08:35 Discharged to Home. Impression: Abdominal tenderness; Vomiting. hb Condition is Stable. Forms are Work release form, Medication Reconciliation Form, Thank You Letter, Antibiotic Education, Prescription Opioid Use. Follow up: Xavier Matson; When: 2 - 3 days; Reason: Recheck today's complaints, Continuance of care, Re-evaluation by your physician. Follow up: Aníbal Cavazos; When: 2 - 3 days; Reason: Recheck today's complaints, Re-evaluation by your physician. Problem is new. Symptoms have improved. cal
--- NOTE | 2019-06-21 08:44 | RAD REPORT ---
EXAM DESCRIPTION: RAD - Chest Single View - 06/21/2019 4:39 am CLINICAL HISTORY: Abdominal pain, abdominal distention COMPARISON: March 29 TECHNIQUE: AP portable chest image was obtained 0438 hours . FINDINGS: Lungs are clear. Heart and vasculature are normal. No measurable pleural effusion and no p neumothorax. No acute bony abnormality seen. No acute aortic findings suspected. IMPRESSION: No acute cardiopulmonary process. No significant change from comparison.
[2019-06-21 08:56] VITALS: TEMP 98.3
[2019-06-21 09:03] VITALS: BP 137/83; O2SAT 96
--- NOTE | 2019-06-21 10:32 | EKG ---
Test Date: 2019-06-21 Test Time: 04:43:08 Designer Architect: MANUELA MEASUREMENT RESULTS: Intervals: Rate: 95 RI: 134 QRSD: 100 QT: 364 QTc: 457 [place]: P: 47 RI: 134 QRS: 8 T: 54 INTERPRETIVE STATEMENTS: Normal sinus rhythm Normal ECG Compared to ECG 03/29/2019 21:13:33 Sinus tachycardia no longer present Electronically Signed On 06-21-19 10:31:28 CDT by Albin Reyes
== END 2019-06-21 08:50 | disposition home or self-care (01) ==
LOC: ER 03:44
DX: R11.2 Nausea with vomiting, unspecified (principal); I10 Essential (primary) hypertension; E11.9 Type 2 diabetes mellitus without complications; I25.2 Old myocardial infarction; Z88.0 Allergy status to penicillin; Z86.73 Personal history of transient ischemic attack (TIA), and cerebral infarction without residual deficits
CPT/HCPCS: 96365; 96367; 96361; 93005; 85025; 80048; 36415; 83735; 85610; 80076; 84484; 83690; 83880; 74177; 71045; 96375; 99285; Q9967; C9113; J2270 ×2; J7030; J2405; J0744

== ENCOUNTER 2019-07-02 18:57 | Emergency (ER) | payer BC ==
[2019-07-02 19:55] LABS: Absolute Lymphocytes (CBC) 1.1 K/uL (0.7-4.9); Basophils % 1.7 % (0-1.3); Hematocrit 37.4 % (39.6-49.0); Lymphocytes % 26.1 % (15.3-44.8); MPV 9.8 fL (7.6-11.3); RBC Red Blood Cell Count 3.86 M/uL (4.33-5.43)
[2019-07-02 20:09] LABS: ALT/SGPT 72 U/L (12-78); AST/SGOT 36 U/L (15-37); Albumin 3.6 g/dL (3.4-5.0); Alkaline Phosphatase 264 U/L (45-117); BUN Blood Urea Nitrogen 5 mg/dL (7-18); Bicarbonate 23 mmol/L (21-32); Bilirubin Direct 0.2 mg/dL (0-0.2); Bilirubin Total 0.5 mg/dL (0.2-1.0); Glucose Level 215 mg/dL (74-106); Lipase 77 U/L (73-393); Potassium 3.2 mmol/L (3.5-5.1); Protein, Total 7.1 g/dL (6.4-8.2); Sodium Level 141 mmol/L (136-145)
[2019-07-02 20:25] LABS: Urine Blood NEGATIVE (NEG); Urine Glucose 2+ (NEG)
[2019-07-02 20:26] LABS: Urine Protein NEGATIVE (NEG)
[2019-07-02] MEDS ORDERED: ONDANSETRON 4 MG/2 ML VIAL ONE (20:36)
[2019-07-02] MEDS ORDERED: FAMOTIDINE 20 MG/2 ML VIAL IV ONE (20:36)
[2019-07-02] MEDS ORDERED: NA CHLORIDE 0.9% 1,000 ML ONE (20:36)
[2019-07-02] MEDS ORDERED: MORPHINE 4 MG/ML SYR ONE ×2 (20:36→22:03)
--- NOTE | 2019-07-02 20:51 | RAD REPORT ---
EXAM DESCRIPTION: Maria Luisa Single View07/02/2019 8:40 pm CLINICAL HISTORY: Abd pain COMPARISON: June 21, 2019 FINDINGS: The lungs appear clear of acute infiltrate. The heart is normal size IMPRESSION: No acute abnormalities displayed
[2019-07-02 20:55] LABS: Protime INR 1.05
[2019-07-02 21:09] LABS: Magnesium 1.8 mg/dL (1.8-2.4); NT PRO-BNP 177 pg/mL (<125); Troponin (Emerg Dept Use Only) < 0.02 ng/mL (0.0-0.045)
--- NOTE | 2019-07-02 23:54 | ER ---
Nurse's Notes [facility] Name: Chi Diaz Age: 54 yrs Sex: Male : 1965 Arrival Date: 07/02/2019 Time: 19:00 Bed 23 [facility] MD: Diagnosis: Abdominal tenderness;Functional dyspepsia;Hypokalemia Presentation: 07/02 19:05 Presenting complaint: Patient states: Reports he was here last week for abdominal pain, ea pt reports the pain has been getting worse since. Pt reports N/V/D. Transition of care: patient was not received from another setting of care. Onset of symptoms was July 02, 2019. Risk Assessment: Do you want to hurt yourself or someone else? Patient reports no desire to harm self or others. Initial Sepsis Screen: Does the patient meet any 2 criteria? No. Patient's initial sepsis screen is negative. Does the patient have a suspected source of infection? No. Patient's initial sepsis screen is negative. Care prior to arrival: None. 19:05 Method Of Arrival: Ambulatory ea 19:05 Acuity: SIDNEY 3 ea Triage Assessment: 19:09 General: Appears uncomfortable, Behavior is appropriate for age. Pain: Complains of ea pain in right upper quadrant, left upper quadrant, right lower quadrant and left lower quadrant. GI: Parent/caregiver reports the patient having diarrhea, nausea, vomiting. Historical: - Allergies: 19:09 PENICILLINS; ea - Home Meds: 19:09 lisinopril 20 mg Oral tab 1 tab once daily [Active]; metformin 500 mg Oral tab 1 tab 2 ea times per day [Active]; - PMHx: 19:09 CVA; Diabetes - NIDDM; Hypertension; Myocardial infarction; Ulcers; ea - PSHx: 19:09 right foot surgery; ea - Immunization history:: Adult Immunizations up to date. - Social history:: Smoking status: Patient/guardian denies using tobacco. - Ebola Screening: : No symptoms or risks identified at this time. - Family history:: not pertinent. Screenin:07 Abuse screen: Denies threats or abuse. Nutritional screening: No deficits noted. ea Tuberculosis screening: No symptoms or risk factors identified. Fall Risk None identified. Assessment: 19:30 General: Appears in no apparent distress. comfortable, Behavior is calm, cooperative, ca1 appropriate for age. Pain: Complains of pain in left lower quadrant and right lower quadrant and left upper quadrant and right upper quadrant Pain does not radiate. Pain currently is 8 out of 10 on a pain scale. Quality of pain is described as sharp, Pain began 2 weeks ago Is continuous. Neuro: Level of Consciousness is awake, alert, obeys commands, Oriented to person, place, time, situation. Cardiovascular: Heart tones S1 S2 present Capillary refill < 3 seconds Patient's skin is warm and dry. Pulses are all present. Respiratory: Airway is patent Respiratory effort is even, unlabored, Respiratory pattern is regular, symmetrical, Breath sounds are clear bilaterally. GI: Abdomen is round non-distended, Bowel sounds present X 4 quads. Abd is soft X 4 quads Abdomen is tender to palpation X 4 quads. Reports diarrhea, nausea, vomiting. : No deficits noted. No signs and/or symptoms were reported regarding the genitourinary system. EENT: No deficits noted. No signs and/or symptoms were reported regarding the EENT system. Derm: Skin is intact, is healthy with good turgor, Skin is pink, warm \T\ dry. Musculoskeletal: Circulation, motion, and sensation intact. Capillary refill < 3 seconds, Range of motion: intact in all extremities. 20:22 Reassessment: Patient appears in no apparent distress at this time. No changes from ca1 previously documented assessment. Patient and/or family updated on plan of care and expected duration. Pain level reassessed. Patient is alert, oriented x 3, equal unlabored respirations, skin warm/dry/pink. 21:45 Reassessment: Patient appears in no apparent distress at this time. Patient and/or ca1 family updated on plan of care and expected duration. Pain level reassessed. Patient is alert, oriented x 3, equal unlabored respirations, skin warm/dry/pink. Pending CT with Oral Contrast. 22:28 Reassessment: Patient appears in no apparent distress at this time. Patient and/or ca1 family updated on plan of care and expected duration. Pain level reassessed. Patient is alert, oriented x 3, equal unlabored respirations, skin warm/dry/pink. 23:32 Reassessment: Patient appears in no apparent distress at this time. Patient and/or tr5 family updated on plan of care and expected duration. Pain level reassessed. Patient is alert, oriented x 3, equal unlabored respirations, skin warm/dry/pink. Vital Signs: 19:07 BP 137 / 80; Pulse 83; Resp 18; Temp 98.7; Pulse Ox 100% ; Weight 104.33 kg; Height 5 ea ft. 9 in. (175.26 cm); 20:22 BP 120 / 73; Pulse 74; Resp 16 S; Pulse Ox 96% on R/A; ca1 21:45 BP 134 / 66; Pulse 78; Resp 16 S; Pulse Ox 99% on R/A; ca1 22:28 BP 134 / 77; Pulse 76; Resp 17 S; Pulse Ox 100% ; ca1 23:32 BP 105 / 64; Pulse 82; Resp 16; Pulse Ox 99% on R/A; tr5 19:07 Body Mass Index 33.96 (104.33 kg, 175.26 cm) ea ED Course: 19:00 Patient arrived in ED. mr 19:07 Triage completed. ea 19:18 Judith Leyva, ELDER is Primary Nurse. ca1 19:28 Kennedy Alva MD is Attending Physician. cal 19:30 Patient has correct armband on for positive identification. Placed in gown. Bed in low ca1 position. Call light in reach. Side rails up X 1. Pulse ox on. NIBP on. Warm blanket given. 19:30 No provider procedures requiring assistance completed. Initial lab(s) drawn, by la, ca1 sent to lab. Inserted saline lock: 22 gauge in right forearm, using aseptic technique. Blood collected. 19:34 Arm band placed on. ca1 20:41 XRAY Chest (1 view) In Process Unspecified. EDMS 22:35 CT Abd/Pelvis - PO and IV Contrast In Process Unspecified. EDMS 07/03 00:10 Aníbal Cavazos MD is Referral Physician. cal 00:13 IV discontinued. tr5 Administered Medications: 07/02 20:31 Drug: NS 0.9% 1000 ml Route: IV; Rate: 1 bolus; Site: right forearm; ca1 21:59 Follow up: Response: No adverse reaction; IV Status: Completed infusion; IV Intake: ca1 1000ml 20:32 Drug: Zofran 4 mg Route: IVP; Site: right forearm; ca1 21:59 Follow up: Response: No adverse reaction; Nausea is decreased ca1 20:35 Drug: morphine 4 mg Route: IVP; Site: right forearm; ca1 21:59 Follow up: Response: No adverse reaction; Pain is unchanged, physician notified ca1 20:39 Drug: Pepcid 20 mg Route: IVP; Site: right forearm; ca1 21:59 Follow up: Response: No adverse reaction ca1 22:04 Drug: morphine 4 mg {Note: RASS - 0.} Route: IVP; Site: right forearm; ca1 23:00 Follow up: Response: Pain is decreased; RASS: Alert and Calm (0) tr5 07/03 00:08 Drug: Potassium Effervescent Tablet 25 mEq Route: PO; tr5 00:08 Follow up: Response: Medication administered at discharge. tr5 Intake: 07/02 21:59 IV: 1000ml; Total: 1000ml. ca1 Outcome: 23:52 Discharge ordered by . cal 07/03 00:13 Discharged to home ambulatory. tr5 Condition: stable Discharge instructions given to patient, Instructed on discharge instructions, follow up and referral plans. medication usage, Demonstrated understanding of instructions, follow-up care, medications, Prescriptions given X 3. 00:14 Patient left the ED. tr5 Signatures: Dispatcher [employer] EDMT Kennedy Alva MD MD cha Rivera, Andreea mr Jami Irving RN RN ea Acob, Cheryl, RN RN ca1 Rodriguez, Tommie, RN RN tr5 Corrections: (The following items were deleted from the chart) 07/02 21:46 20:22 Reassessment: Patient appears in no apparent distress at this time. No changes ca1 from previously documented assessment. Patient and/or family updated on plan of care and expected duration. Pain level reassessed. ca1
--- NOTE | 2019-07-02 23:54 | EDPHYS ---
Physician Documentation [facility] Name: Chi Diaz Age: 54 yrs Sex: Male : 1965 Arrival Date: 07/02/2019 Time: 19:00 Bed 23 Private MD: ED Physician Kennedy Alva HPI: 07/02 20:28 This 54 yrs old Male presents to ER via Ambulatory with complaints of cal Abdominal Pain. 20:28 The patient presents with abdominal pain. Onset: The symptoms/episode began/occurred 2 cal day(s) ago. The patient presents to the emergency department with vomiting, that is intermittent. Onset: The symptoms/episode began/occurred 2 day(s) ago. Possible causes: unknown. The symptoms are aggravated by nothing. The symptoms are alleviated by nothing. Associated signs and symptoms: The patient has no apparent associated signs or symptoms. Associated signs and symptoms: Pertinent positives: nausea and vomiting. The symptoms are described as constant, crampy. Historical: - Allergies: 19:09 PENICILLINS; ea - Home Meds: 19:09 lisinopril 20 mg Oral tab 1 tab once daily [Active]; metformin 500 mg Oral tab 1 tab 2 ea times per day [Active]; - PMHx: 19:09 CVA; Diabetes - NIDDM; Hypertension; Myocardial infarction; Ulcers; ea - PSHx: 19:09 right foot surgery; ea - Immunization history:: Adult Immunizations up to date. - Social history:: Smoking status: Patient/guardian denies using tobacco. - Ebola Screening: : No symptoms or risks identified at this time. - Family history:: not pertinent. ROS: 20:28 Constitutional: Negative for fever, chills, and weight loss, Eyes: Negative for injury, cal pain, redness, and discharge, ENT: Negative for injury, pain, and discharge, Neck: Negative for injury, pain, and swelling, Cardiovascular: Negative for chest pain, palpitations, and edema, Respiratory: Negative for shortness of breath, cough, wheezing, and pleuritic chest pain, Back: Negative for injury and pain, : Negative for injury, bleeding, discharge, and swelling, MS/Extremity: Negative for injury and deformity, Skin: Negative for injury, rash, and discoloration, Neuro: Negative for headache, weakness, numbness, tingling, and seizure, Psych: Negative for depression, anxiety, suicide ideation, homicidal ideation, and hallucinations, Allergy/Immunology: Negative for hives, rash, and allergies, Endocrine: Negative for neck swelling, polydipsia, polyuria, polyphagia, and marked weight changes, Hematologic/Lymphatic: Negative for swollen nodes, abnormal bleeding, and unusual bruising. 20:28 Abdomen/GI: Positive for abdominal pain. Exam: 20:28 Constitutional: This is a well developed, well nourished patient who is awake, alert, cal and in no acute distress. Head/Face: Normocephalic, atraumatic. Eyes: Pupils equal round and reactive to light, extra-ocular motions intact. Lids and lashes normal. Conjunctiva and sclera are non-icteric and not injected. Cornea within normal limits. Periorbital areas with no swelling, redness, or edema. ENT: Nares patent. No nasal discharge, no septal abnormalities noted. Tympanic membranes are normal and external auditory canals are clear. Oropharynx with no redness, swelling, or masses, exudates, or evidence of obstruction, uvula midline. Mucous membranes moist. Neck: Trachea midline, no thyromegaly or masses palpated, and no cervical lymphadenopathy. Supple, full range of motion without nuchal rigidity, or vertebral point tenderness. No Meningismus. Chest/axilla: Normal chest wall appearance and motion. Nontender with no deformity. No lesions are appreciated. Cardiovascular: Regular rate and rhythm with a normal S1 and S2. No gallops, murmurs, or rubs. Normal PMI, no JVD. No pulse deficits. Respiratory: Lungs have equal breath sounds bilaterally, clear to auscultation and percussion. No rales, rhonchi or wheezes noted. No increased work of breathing, no retractions or nasal flaring. Back: No spinal tenderness. No costovertebral tenderness. Full range of motion. Male : Normal genitalia with no discharge or lesions. Skin: Warm, dry with normal turgor. Normal color with no rashes, no lesions, and no evidence of cellulitis. MS/ Extremity: Pulses equal, no cyanosis. Neurovascular intact. Full, normal range of motion. Neuro: Awake and alert, GCS 15, oriented to person, place, time, and situation. Cranial nerves II-XII grossly intact. Motor strength 5/5 in all extremities. Sensory grossly intact. Cerebellar exam normal. Normal gait. Psych: Awake, alert, with orientation to person, place and time. Behavior, mood, and affect are within normal limits. 20:28 Abdomen/GI: Inspection: distension, Bowel sounds: normal, Palpation: moderate abdominal tenderness, in all quadrants, Liver: no appreciated palpable abnormalities, Hernia: not appreciated. Vital Signs: 19:07 BP 137 / 80; Pulse 83; Resp 18; Temp 98.7; Pulse Ox 100% ; Weight 104.33 kg; Height 5 ea ft. 9 in. (175.26 cm); 20:22 BP 120 / 73; Pulse 74; Resp 16 S; Pulse Ox 96% on R/A; ca1 21:45 BP 134 / 66; Pulse 78; Resp 16 S; Pulse Ox 99% on R/A; ca1 22:28 BP 134 / 77; Pulse 76; Resp 17 S; Pulse Ox 100% ; ca1 23:32 BP 105 / 64; Pulse 82; Resp 16; Pulse Ox 99% on R/A; tr5 19:07 Body Mass Index 33.96 (104.33 kg, 175.26 cm) ea MDM: 19:28 Patient medically screened. [facility] 20:28 Data reviewed: vital signs, nurses notes, lab test result(s), EKG, radiologic studies, [facility] CT scan, plain films. 07/02 19:29 Order name: Basic Metabolic Panel; Complete Time: 20:25 ca1 07/02 19:29 Order name: CBC with Diff; Complete Time: 20:25 ca1 07/02 19:29 Order name: Creatinine for Radiology; Complete Time: 20:25 ca1 07/02 19:29 Order name: Hepatic Function; Complete Time: 20:25 ca1 07/02 19:29 Order name: Lipase; Complete Time: 20:25 ca1 07/02 20:08 Order name: Urine Dipstick--Ancillary (enter results); Complete Time: 23:28 em1 07/02 20:27 Order name: Magnesium; Complete Time: 23:28 cal 07/02 20:27 Order name: NT PRO-BNP; Complete Time: 23:28 cal 07/02 20:27 Order name: PT-INR; Complete Time: 23:28 cal 07/02 20:27 Order name: Troponin (emerg Dept Use Only); Complete Time: 23:28 cal 07/02 20:27 Order name: XRAY Chest (1 view); Complete Time: 23:28 [facility] 07/02 20:27 Order name: CT Abd/Pelvis - PO and IV Contrast [facility] 07/02 19:29 Order name: IV Saline Lock; Complete Time: 19:29 [facility] 07/02 19:29 Order name: Labs collected and sent; Complete Time: 19:29 [facility] 07/02 20:27 Order name: EKG; Complete Time: 20:28 [facility] 07/02 20:27 Order name: Cardiac monitoring; Complete Time: 20:52 [facility] 07/02 20:27 Order name: EKG - Nurse/Tech; Complete Time: 20:52 [facility] 07/02 20:27 Order name: O2 Per Protocol; Complete Time: 20:29 [facility] 07/02 20:27 Order name: O2 Sat Monitoring; Complete Time: 20:29 [facility] Administered Medications: 20:31 Drug: NS 0.9% 1000 ml Route: IV; Rate: 1 bolus; Site: right forearm; ca1 21:59 Follow up: Response: No adverse reaction; IV Status: Completed infusion; IV Intake: ca1 1000ml 20:32 Drug: Zofran 4 mg Route: IVP; Site: right forearm; ca1 21:59 Follow up: Response: No adverse reaction; Nausea is decreased ca1 20:35 Drug: morphine 4 mg Route: IVP; Site: right forearm; ca1 21:59 Follow up: Response: No adverse reaction; Pain is unchanged, physician notified ca1 20:39 Drug: Pepcid 20 mg Route: IVP; Site: right forearm; ca1 21:59 Follow up: Response: No adverse reaction ca1 22:04 Drug: morphine 4 mg {Note: RASS - 0.} Route: IVP; Site: right forearm; ca1 23:00 Follow up: Response: Pain is decreased; RASS: Alert and Calm (0) tr5 07/03 00:08 Drug: Potassium Effervescent Tablet 25 mEq Route: PO; tr5 00:08 Follow up: Response: Medication administered at discharge. tr5 Disposition: 07/02/19 23:52 Discharged to Home. Impression: Abdominal tenderness, Functional dyspepsia, Hypokalemia. - Condition is Stable. - Discharge Instructions: Abdominal Pain, Adult, Potassium Content of Foods, Abdominal Pain, Adult, Fxxt-ci-Hnva, Hypokalemia. - Prescriptions for Bentyl 20 mg Oral Tablet - take 1 tablet by ORAL route every 6 hours As needed; 20 tablet. Pepcid 20 mg Oral Tablet - take 1 tablet by ORAL route every 12 hours for 10 days; 20 tablet. Zofran 4 mg Oral Tablet - take 1 tablet by ORAL route every 12 hours As needed; 20 tablet. - Medication Reconciliation Form, Thank You Letter, Antibiotic Education, Prescription Opioid Use form. - Follow up: Private Physician; When: 1 - 2 days; Reason: Recheck today's complaints, Continuance of care, Re-evaluation by your physician. Follow up: Aníbal Cavazos MD; When: Today; Reason: Recheck today's complaints, Re-evaluation by your physician. - Problem is new. - Symptoms have improved. Signatures: Dispatcher [employer] EDMS Kennedy Alva MD MD cha Antunez, Elena RN Judith Smith ea RN Boris Shelby RN RN tr5 Corrections: (The following items were deleted from the chart) 00:10 07/02 23:52 07/02/2019 23:52 Discharged to Home. Impression: Abdominal tenderness; cal Functional dyspepsia; Hypokalemia. Condition is Stable. Forms are Medication Reconciliation Form, Thank You Letter, Antibiotic Education, Prescription Opioid Use. Follow up: Private Physician; When: 1 - 2 days; Reason: Recheck today's complaints, Continuance of care, Re-evaluation by your physician. Problem is new. Symptoms have improved. cal 07/03 00:14 00:10 07/02/2019 23:52 Discharged to Home. Impression: Abdominal tenderness; Functional tr5 dyspepsia; Hypokalemia. Condition is Stable. Discharge Instructions: Abdominal Pain, Adult, Potassium Content of Foods, Abdominal Pain, Adult, [id number], Hypokalemia. Prescriptions for Bentyl 20 mg Oral Tablet - take 1 tablet by ORAL route every 6 hours As needed; 20 tablet, Pepcid 20 mg Oral Tablet - take 1 tablet by ORAL route every 12 hours for 10 days; 20 tablet, Zofran 4 mg Oral Tablet - take 1 tablet by ORAL route every 12 hours As needed; 20 tablet. and Forms are Medication Reconciliation Form, Thank You Letter, Antibiotic Education, Prescription Opioid Use. Follow up: Private Physician; When: 1 - 2 days; Reason: Recheck today's complaints, Continuance of care, Re-evaluation by your physician. Follow up: Aníbal Cavazos; When: Today; Reason: Recheck today's complaints, Re-evaluation by your physician. Problem is new. Symptoms have improved. cal
[2019-07-03] MEDS ORDERED: POTASSIUM 25 MEQ EFFERV TAB ONE (00:02)
[2019-07-03 01:06] VITALS: TEMP 98.7
[2019-07-03 01:11] VITALS: BP 105/64; O2SAT 99
--- NOTE | 2019-07-03 10:03 | RAD REPORT ---
EXAM DESCRIPTION: CT - Abdomen Pelvis W Contrast - 07/03/2019 3:14 am CLINICAL HISTORY: ABD PAIN COMPARISON: 06/21/2019 TECHNIQUE: CT of the abdomen and pelvis performed following IV administration of iodinated contrast. DLP: 1785.6 mGycm FINDINGS: Lung Bases: Minimal dependent atelectasis. Bones: No destructive bone lesions identified. Abdomen: Liver: The liver has normal size and decreased density. No intrahepatic mass or biliary dilatation. Gallbladder: No calcified gallstones. Spleen, Pancreas, and Adrenal Glands: Calcified splenic granulomas. Kidneys: The kidneys have normal size without evidence of solid mass or hydronephrosis. Nonobstru cting 3 to 4 mm left nephrolithiasis. Subcentimeter hypodensity in the interpolar right kidney is too small for characterization and may represent a cyst. Vasculature: The aorta and IVC have normal caliber and position. The portal vein is patent. The pro ximal visceral and renal arteries are patent. Stomach: The stomach and duodenum have normal course. Other: No free intraperitoneal air. Small fat-containing umbilical hernia. No free fluid or lymphad enopathy. Pelvis: Bladder: Urinary bladder is unremarkable. Bowel: No dilated loops of large or small bowel. Appendix: Normal appendix. Pelvis: Tiny fat-containing left inguinal hernia. Prostate is not enlarged. IMPRESSION: 1. No acute inflammatory or obstructive process identified. 2. Hepatic steatosis. 3. Nonobstructing left nephrolithiasis. This exam was performed according to our departmental dose-optimization program, which includes autom ated exposure control, adjustment of the mA and/or kV according to patient size and/or use of iterati ve reconstruction technique. Electronically signed by: Jayden Dejesus 07/02/2019 10:59 PM CDT Due to temporary technical issues with the PACS/Fluency reporting system, reports are being signed by the in house radiologist as a courtesy to ensure prompt reporting. The interpreting radiologist is f ully responsible for the content of the report.
--- NOTE | 2019-07-03 11:39 | EKG ---
Test Date: 2019-07-02 Test Time: 20:42:06 Mental Health Program Specialist: ALEXANDRET MEASUREMENT RESULTS: Intervals: Rate: 76 RI: 144 QRSD: 98 QT: 400 QTc: 450 Clare: P: 64 RI: 144 QRS: 25 T: 25 INTERPRETIVE STATEMENTS: Normal sinus rhythm Normal ECG Compared to ECG 06/21/2019 04:43:08 No significant changes Electronically Signed On 07-03-19 11:38:14 CDT by Steve Lee
== END 2019-07-03 00:14 | disposition home or self-care (01) ==
LOC: ER 18:57
DX: K30 Functional dyspepsia (principal); E87.6 Hypokalemia; I10 Essential (primary) hypertension; E11.9 Type 2 diabetes mellitus without complications; I25.2 Old myocardial infarction; Z88.0 Allergy status to penicillin
CPT/HCPCS: 93005; 85025; 80048; 36415; 83735; 85610; 80076; 81003; 84484; 83690; 83880; 74177; 71045; Q9967; J7030; J2405; 96361; 96374; 96375; 99284

== ENCOUNTER 2019-09-26 05:18 | Emergency (ER) | payer BC, SELFPAY ==
[2019-09-26] MEDS ORDERED: ASPIRIN 81 MG CHEWABLE TABLET ONE (05:30)
[2019-09-26 05:46] LABS: Absolute Lymphocytes (CBC) 1.3 K/uL (0.7-4.9); Basophils % 1.2 % (0-1.3); Lymphocytes % 18.6 % (15.3-44.8); MPV 10.8 fL (7.6-11.3); RBC Red Blood Cell Count 4.46 M/uL (4.33-5.43)
--- NOTE | 2019-09-26 05:52 | EDPHYS ---
Physician Documentation [facility] Name: Chi Diaz Age: 54 yrs Sex: Male : 1965 Arrival Date: 09/26/2019 Time: 05:19 Bed 20 Private MD: ED Physician Kennedy Alva HPI: 09/26 05:42 This 54 yrs old Male presents to ER via Unassigned with complaints of Chest cal Pain. 05:42 The patient or guardian reports chest pain that is located primarily in the substernal cal area. Onset: 2 day(s) ago. The pain does not radiate. Historical: - PMHx: 06:06 CVA; Diabetes - NIDDM; Hypertension; Myocardial infarction; Ulcers; ea - Immunization history:: Adult Immunizations unknown. - Family history:: not pertinent. - Ebola Screening: : No symptoms or risks identified at this time. - Social history:: Smoking status: unknown. ROS: 05:44 Constitutional: Negative for fever, chills, and weight loss, Eyes: Negative for injury, cal pain, redness, and discharge, ENT: Negative for injury, pain, and discharge, Neck: Negative for injury, pain, and swelling, Respiratory: Negative for shortness of breath, cough, wheezing, and pleuritic chest pain, Abdomen/GI: Negative for abdominal pain, nausea, vomiting, diarrhea, and constipation, Back: Negative for injury and pain, : Negative for injury, bleeding, discharge, and swelling, Skin: Negative for injury, rash, and discoloration, Psych: Negative for depression, anxiety, suicide ideation, homicidal ideation, and hallucinations, Allergy/Immunology: Negative for hives, rash, and allergies, Endocrine: Negative for neck swelling, polydipsia, polyuria, polyphagia, and marked weight changes, Hematologic/Lymphatic: Negative for swollen nodes, abnormal bleeding, and unusual bruising. 05:44 Cardiovascular: Positive for chest pain. 05:44 Respiratory: Negative for cough, dyspnea on exertion. 05:44 Neuro: Positive for weakness, of the face, left arm and left leg. Exam: 05:45 Constitutional: This is a well developed, well nourished patient who is awake, alert, cal and in no acute distress. Eyes: Pupils equal round and reactive to light, extra-ocular motions intact. Lids and lashes normal. Conjunctiva and sclera are non-icteric and not injected. Cornea within normal limits. Periorbital areas with no swelling, redness, or edema. ENT: Nares patent. No nasal discharge, no septal abnormalities noted. Tympanic membranes are normal and external auditory canals are clear. Oropharynx with no redness, swelling, or masses, exudates, or evidence of obstruction, uvula midline. Mucous membranes moist. Neck: Trachea midline, no thyromegaly or masses palpated, and no cervical lymphadenopathy. Supple, full range of motion without nuchal rigidity, or vertebral point tenderness. No Meningismus. Chest/axilla: Normal chest wall appearance and motion. Nontender with no deformity. No lesions are appreciated. Cardiovascular: Regular rate and rhythm with a normal S1 and S2. No gallops, murmurs, or rubs. Normal PMI, no JVD. No pulse deficits. Respiratory: Lungs have equal breath sounds bilaterally, clear to auscultation and percussion. No rales, rhonchi or wheezes noted. No increased work of breathing, no retractions or nasal flaring. Abdomen/GI: Soft, non-tender, with normal bowel sounds. No distension or tympany. No guarding or rebound. No evidence of tenderness throughout. Back: No spinal tenderness. No costovertebral tenderness. Full range of motion. Male : Normal genitalia with no discharge or lesions. Skin: Warm, dry with normal turgor. Normal color with no rashes, no lesions, and no evidence of cellulitis. Psych: Awake, alert, with orientation to person, place and time. Behavior, mood, and affect are within normal limits. 05:45 Head/face: Noted is left face weakness. 05:47 Musculoskeletal/extremity: Extremities: noted in the left arm and left leg: decreased cal ROM, ROM: no acute changes, Circulation is intact in all extremities. Sensation intact. Compartment Syndrome exam of affected extremity: is normal. DVT Exam: No signs of deep vein thrombosis. no pain, no swelling, no tenderness, negative Homans' sign noted on exam, no appreciated bluish discoloration, no erythema, no increased warmth. Vital Signs: 05:25 BP 176 / 96; Pulse 104; Resp 16 S; Temp 98.7(O); Pulse Ox 97% on R/A; Weight 42.86 kg bb (M); Height 5 ft. 9 in. (175.26 cm) (R); Pain 8/10; 05:56 BP 176 / 96; Pulse 104; Resp 16; Temp 98.7(O); Pulse Ox 97% on R/A; Weight 94.5 kg; mw2 Height 5 ft. 9 in. (175.26 cm); Pain 8/10; 06:15 BP 141 / 93; Pulse 93; Resp 14 S; Pulse Ox 96% on R/A; bb 06:25 BP 140 / 92; Pulse 91; Resp 19 S; Pulse Ox 95% on R/A; bb 06:30 BP 144 / 84; Pulse 93; Resp 15 S; Temp 98.7(O); Pulse Ox 96% on R/A; bb 05:56 Body Mass Index 30.77 (94.50 kg, 175.26 cm) 2 NIH Stroke Scale Scores: 05:50 NIHSS Score: 5 cal 05:52 NIHSS Score: 6 bb 06:30 NIHSS Score: 6 bb MDM: 05:23 Patient medically screened. [facility] 05:46 Data reviewed: vital signs, nurses notes, lab test result(s), EKG, radiologic studies, [facility] CT scan, plain films. 09/26 05:24 Order name: Basic Metabolic Panel; Complete Time: 06:40 [facility] 09/26 05:24 Order name: CBC with Diff; Complete Time: 06:40 [facility] 09/26 05:24 Order name: LFT's; Complete Time: 06:40 [facility] 09/26 05:24 Order name: Magnesium; Complete Time: 06:40 [facility] 09/26 05:24 Order name: NT PRO-BNP; Complete Time: 06:40 [facility] 09/26 05:24 Order name: PT-INR; Complete Time: 06:40 [facility] 09/26 05:24 Order name: Troponin (emerg Dept Use Only); Complete Time: 06:40 [facility] 09/26 05:24 Order name: XRAY Chest (1 view) [facility] 09/26 05:24 Order name: Lipase; Complete Time: 06:40 [facility] 09/26 05:44 Order name: CT Stroke Brain w/o Contrast [facility] 09/26 05:24 Order name: EKG; Complete Time: 05:25 [facility] 09/26 05:24 Order name: Cardiac monitoring; Complete Time: 06:36 [facility] 09/26 05:24 Order name: EKG - Nurse/Tech; Complete Time: 05:30 [facility] 09/26 05:24 Order name: IV Saline Lock; Complete Time: 06:36 [facility] 09/26 05:24 Order name: Labs collected and sent; Complete Time: 06:36 [facility] 09/26 05:24 Order name: O2 Per Protocol; Complete Time: 06:36 [facility] 09/26 05:24 Order name: O2 Sat Monitoring; Complete Time: 06:36 [facility] 09/26 05:25 Order name: Urine Dipstick-Ancillary (obtain specimen) [facility] Administered Medications: 05:27 Drug: Aspirin 162 mg Route: PO; bb 06:53 Follow up: Response: No adverse reaction bb 06:12 Drug: foLIC Acid 1 mg Route: IVPB; Site: left forearm; bb 06:53 Follow up: Response: No adverse reaction; IV Status: Completed infusion bb 06:15 Drug: Pepcid 20 mg Route: IVP; Site: left forearm; bb 06:55 Follow up: Response: No adverse reaction bb 06:20 Drug: NS 0.9% 1000 ml Route: IV; Rate: 1 bolus; Site: right antecubital; ea 06:54 Follow up: IV Status: Infusion continued upon transfer bb 06:20 Drug: ACTIvase {Co-Signature: jb4 (Chi Montague RN).} Route: IV Thrombolytics; Rate: bb calculated rate; Infused Over: 60 mins; 06:55 Follow up: Response: No adverse reaction; infusion continued on transfer bb 06:34 Drug: Zofran 4 mg Route: IVP; Site: right antecubital; ea 06:55 Follow up: Response: No adverse reaction bb 06:37 Drug: morphine 4 mg Route: IVP; Site: right antecubital; ea 06:55 Follow up: Response: No adverse reaction bb 06:49 Drug: Insulin Regular Human 10 units {Co-Signature: ea (Jami Irving RN).} Route: IVP; lc1 Site: left antecubital; 06:55 Follow up: Response: No adverse reaction bb Disposition: 09/26/19 05:49 Transfer ordered to [facility]. Diagnosis are Other chest pain, Cerebral infarction - left face, left arm and leg weaknrss. - Reason for transfer: Higher level of care. - Accepting physician is to [facility], neuro. - Condition is Stable. - Problem is new. - Symptoms have improved. NIH Stroke Scale - NIH Stroke Score Date: 09/26/2019 Time: 05:50 Total Score = 5 1a. Level of Consciousness (LOC) - 0(Alert) 1b. Level of Consciousness (LOC) (Year \T\ Age) - 0(Both) 1c. LOC Commands (Open \T\ Closes Eyes/Timber Faller) - 0(Both) 2. Best Gaze (Lateral Gaze Paresis) - 0(Normal) 3. Visual Field Loss - 0(No visual loss) 4. Facial Palsy - 1(Minor Paralysis) 5a. Left Arm: Motor (10-second hold) - 1(Drift) 5b. Right Arm: Motor (10-second hold) - 0(No drift) 6a. Left Leg: Motor (5-second hold - always test supine) - 1(Drift) 6b. Right Leg: Motor (5-second hold - always test supine) - 0(No drift) 7. Limb Ataxia (finger/nose \T\ heel/alanis - test with eyes open) - 2(Present in two limbs) 8. Sensory Loss (pinprick arms/legs/face) - 0(Normal) 9. Best Language: Aphasia (description/naming/reading) - 0(No aphasia) 10. Dysarthria (speech clarity - read or repeat words) - 0(Normal) 11. Extinction and Inattention (visual/tactile/auditory/spatial/personal) - 0(No abnormality) Initials: [facility] NIH Stroke Scale - NIH Stroke Score Date: 09/26/2019 Time: 05:52 Total Score = 6 1a. Level of Consciousness (LOC) - 0(Alert) 1b. Level of Consciousness (LOC) (Year \T\ Age) - 0(Both) 1c. LOC Commands (Open \T\ Closes Eyes/Timber Faller) - 0(Both) 2. Best Gaze (Lateral Gaze Paresis) - 0(Normal) 3. Visual Field Loss - 0(No visual loss) 4. Facial Palsy - 2(Partial paralysis) 5a. Left Arm: Motor (10-second hold) - 1(Drift) 5b. Right Arm: Motor (10-second hold) - 0(No drift) 6a. Left Leg: Motor (5-second hold - always test supine) - 1(Drift) 6b. Right Leg: Motor (5-second hold - always test supine) - 0(No drift) 7. Limb Ataxia (finger/nose \T\ heel/alanis - test with eyes open) - 1(Present in one limb) 8. Sensory Loss (pinprick arms/legs/face) - 1(Mild to moderate loss) 9. Best Language: Aphasia (description/naming/reading) - 0(No aphasia) 10. Dysarthria (speech clarity - read or repeat words) - 0(Normal) 11. Extinction and Inattention (visual/tactile/auditory/spatial/personal) - 0(No abnormality) Initials: levi NIH Stroke Scale - NIH Stroke Score Date: 09/26/2019 Time: 06:30 Total Score = 6 1a. Level of Consciousness (LOC) - 0(Alert) 1b. Level of Consciousness (LOC) (Year \T\ Age) - 0(Both) 1c. LOC Commands (Open \T\ Closes Eyes/Timber Faller) - 0(Both) 2. Best Gaze (Lateral Gaze Paresis) - 0(Normal) 3. Visual Field Loss - 0(No visual loss) 4. Facial Palsy - 2(Partial paralysis) 5a. Left Arm: Motor (10-second hold) - 1(Drift) 5b. Right Arm: Motor (10-second hold) - 0(No drift) 6a. Left Leg: Motor (5-second hold - always test supine) - 1(Drift) 6b. Right Leg: Motor (5-second hold - always test supine) - 0(No drift) 7. Limb Ataxia (finger/nose \T\ heel/alanis - test with eyes open) - 1(Present in one limb) 8. Sensory Loss (pinprick arms/legs/face) - 1(Mild to moderate loss) 9. Best Language: Aphasia (description/naming/reading) - 0(No aphasia) 10. Dysarthria (speech clarity - read or repeat words) - 0(Normal) 11. Extinction and Inattention (visual/tactile/auditory/spatial/personal) - 0(No abnormality) Initials: levi Signatures: Dispatcher [employer] EDMS Kennedy Alva MD MD cha Ballard, Brenda, RN RN Danika Grier 1 Jami Irving RN RN ea James Bryson RN jb4 Jami Irving RN, ea Corrections: (The following items were deleted from the chart) 07:01 05:49 09/26/2019 05:49 Transfer ordered to [facility]. bb Diagnosis is Other chest pain; Cerebral infarction - left face, left arm and leg weaknrss. Reason for transfer: Higher level of care. Accepting physician is to [facility], [place]. Condition is Stable. Problem is new. Symptoms have improved. cal
[2019-09-26 05:56] LABS: Protime INR 0.98
[2019-09-26] MEDS ORDERED: FAMOTIDINE 20 MG/2 ML VIAL IV ONE (06:09)
[2019-09-26] MEDS ORDERED: NA CHLORIDE 0.9% 1,000 ML ONE (06:09)
[2019-09-26] MEDS ORDERED: FOLIC ACID 5 MG/ML VIAL ONE (06:10)
[2019-09-26] MEDS ORDERED: ALTEPLASE 100 ML IV ONE (06:11)
[2019-09-26 06:15] LABS: BUN Blood Urea Nitrogen 21 mg/dL (7-18); Bicarbonate 22 mmol/L (21-32); Glucose Level 356 mg/dL (74-106); Potassium 4.1 mmol/L (3.5-5.1); Sodium Level 135 mmol/L (136-145)
[2019-09-26 06:16] LABS: ALT/SGPT 27 U/L (12-78); AST/SGOT 14 U/L (15-37); Albumin 3.8 g/dL (3.4-5.0); Alkaline Phosphatase 79 U/L (45-117); Bilirubin Direct 0.1 mg/dL (0-0.2); Bilirubin Total 0.4 mg/dL (0.2-1.0); Lipase 94 U/L (73-393); Magnesium 1.9 mg/dL (1.8-2.4); NT PRO-BNP 13 pg/mL (<125); Protein, Total 7.7 g/dL (6.4-8.2); Troponin (Emerg Dept Use Only) < 0.02 ng/mL (0.0-0.045)
[2019-09-26] MEDS ORDERED: NA CHLORIDE 0.9% 50 ML IV ONE (06:16)
[2019-09-26] MEDS ORDERED: MORPHINE 4 MG/ML SYR ONE (06:27)
[2019-09-26] MEDS ORDERED: ONDANSETRON 4 MG/2 ML VIAL ONE (06:29)
[2019-09-26] MEDS ORDERED: INSULIN -REGULAR HUMAN 50 UNIT/0.5 ML ML ONE (06:46)
--- NOTE | 2019-09-26 07:03 | ER ---
Nurse's Notes [facility] Name: Chi Diaz Age: 54 yrs Sex: Male : 1965 Arrival Date: 09/26/2019 Time: 05:19 Bed 20 Private MD: Diagnosis: Other chest pain;Cerebral infarction-left face, left arm and leg weaknrss Presentation: 09/26 05:35 Initial Sepsis Screen: Does the patient meet any 2 criteria? No. Patient's initial bb sepsis screen is negative. Does the patient have a suspected source of infection? No. Patient's initial sepsis screen is negative. Care prior to arrival: None. 06:19 Presenting complaint: Patient states: Reports he woke up around 3:30 AM with chest pain ea when he decided to come to the ED. Pt reports he started having weakness on his left arm and leg. Transition of care: patient was not received from another setting of care. Onset of symptoms was September 26, 2019. Risk Assessment: Do you want to hurt yourself or someone else? Patient reports no desire to harm self or others. Initial Sepsis Screen:. 06:19 Method Of Arrival: Wheelchair ea 06:19 Acuity: SIDNEY 3 ea Triage Assessment: 05:30 General: Appears uncomfortable, Behavior is calm, cooperative. Pain: Complains of pain bb in chest Pain does not radiate. Pain currently is 8 out of 10 on a pain scale. Pain began suddenly. Neuro: Level of Consciousness is awake, alert, obeys commands, Oriented to person, place, time, situation, [employer] Sharpshooter are weak on left Weakness Speech is normal, Facial droop on left. Cardiovascular: Reports chest pain. Respiratory: Airway is patent Respiratory effort is even, unlabored, Respiratory pattern is regular. GI: No signs and/or symptoms were reported involving the gastrointestinal system. Derm: Skin is pink, warm \T\ dry. Musculoskeletal: Circulation, motion, and sensation intact. pt has left sided-weakness. Historical: - PMHx: 06:06 CVA; Diabetes - NIDDM; Hypertension; Myocardial infarction; Ulcers; ea - Immunization history:: Adult Immunizations unknown. - Family history:: not pertinent. - Ebola Screening: : No symptoms or risks identified at this time. - Social history:: Smoking status: unknown. Screenin:22 The patient has not been NPO before screening. The patient is alert, able to follow bb commands. The patient does not exhibit slurred or garbled speech The patient is not exhibiting difficulty speaking. The patient does not exhibit difficulty understanding words. The patient is able to swallow own secretions with no drooling or need for suction. Patient tolerated one teaspoon of water. No drooling, immediate coughing, gurgling, or clearing of the throat was noted. The patient tolerated 90mL of water. No drooling, immediate coughing, gurgling, or clearing of the throat was noted. The patient passed the bedside swallow screening. Oral medications may be given as ordered. Contact Physician for further diet orders. 06:18 Abuse screen: Denies threats or abuse. Nutritional screening: No deficits noted. ea Tuberculosis screening: No symptoms or risk factors identified. Fall Risk Gait- Impaired (20 pts.). Assessment: 05:38 Reassessment: pt to CT scan via stretcher with katarina RN and Jami FRIEDMAN pt on monitor. bb 06:13 Reassessment: Report called to Afshan FRIEDMAN at [facility]. ea 06:30 Reassessment: [facility] at bedside for transport of pt to [facility] by ground EMS bb as [facility] and [facility] grounded due to weather, pt is A\T\O x 4, resp unlabored, bilateral IVs patent with fluids infusing, TPA infusing 50 mL NS sent with EMS for completion of TPA. Vital Signs: 05:25 BP 176 / 96; Pulse 104; Resp 16 S; Temp 98.7(O); Pulse Ox 97% on R/A; Weight 42.86 kg bb (M); Height 5 ft. 9 in. (175.26 cm) (R); Pain 8/10; 05:56 BP 176 / 96; Pulse 104; Resp 16; Temp 98.7(O); Pulse Ox 97% on R/A; Weight 94.5 kg; mw2 Height 5 ft. 9 in. (175.26 cm); Pain 8/10; 06:15 BP 141 / 93; Pulse 93; Resp 14 S; Pulse Ox 96% on R/A; bb 06:25 BP 140 / 92; Pulse 91; Resp 19 S; Pulse Ox 95% on R/A; bb 06:30 BP 144 / 84; Pulse 93; Resp 15 S; Temp 98.7(O); Pulse Ox 96% on R/A; bb 05:56 Body Mass Index 30.77 (94.50 kg, 175.26 cm) mw2 NIH Stroke Scale Scores: 05:50 NIHSS Score: 5 cal 05:52 NIHSS Score: 6 bb 06:30 NIHSS Score: 6 bb ED Course: 05:19 Patient arrived in ED. ds1 05:23 Kennedy Alva MD is Attending Physician. cal 05:28 Arm band placed on right wrist. Patient placed in an exam room, on a stretcher, on ea cardiac nurse practitioner, on pulse oximetry. 05:30 Inserted saline lock: 20 gauge in right antecubital area, using aseptic technique. bb Blood collected. 05:30 Patient maintains SpO2 saturation greater than 95% on room air. bb 05:50 Patient has correct armband on for positive identification. Placed in gown. Bed in low ea position. monitoring tech on. 05:51 CT Stroke Brain w/o Contrast In Process Unspecified. EDMS 06:10 Inserted saline lock: 20 gauge in left forearm, using aseptic technique. ,using aseptic bb technique. by Danika FRIEDMAN. 06:21 Triage completed. ea 06:30 No provider procedures requiring assistance completed. Patient transferred, IV remains bb in place. 06:45 XRAY Chest (1 view) In Process Unspecified. EDMS Administered Medications: 05:27 Drug: Aspirin 162 mg Route: PO; bb 06:53 Follow up: Response: No adverse reaction bb 06:12 Drug: foLIC Acid 1 mg Route: IVPB; Site: left forearm; bb 06:53 Follow up: Response: No adverse reaction; IV Status: Completed infusion bb 06:15 Drug: Pepcid 20 mg Route: IVP; Site: left forearm; bb 06:55 Follow up: Response: No adverse reaction bb 06:20 Drug: NS 0.9% 1000 ml Route: IV; Rate: 1 bolus; Site: right antecubital; ea 06:54 Follow up: IV Status: Infusion continued upon transfer bb 06:20 Drug: ACTIvase {Co-Signature: [email or web address] (Chi Montague RN).} Route: IV Thrombolytics; Rate: bb calculated rate; Infused Over: 60 mins; 06:55 Follow up: Response: No adverse reaction; infusion continued on transfer bb 06:34 Drug: Zofran 4 mg Route: IVP; Site: right antecubital; ea 06:55 Follow up: Response: No adverse reaction bb 06:37 Drug: morphine 4 mg Route: IVP; Site: right antecubital; ea 06:55 Follow up: Response: No adverse reaction bb 06:49 Drug: Insulin Regular Human 10 units {Co-Signature: rosalva (Jami Irving RN).} Route: IVP; lc1 Site: left antecubital; 06:55 Follow up: Response: No adverse reaction bb Intake: Outcome: 05:40 Instructed on the need for transfer. bb 05:49 ER care complete, transfer ordered by . [facility] 06:30 Transferred by ground EMS to [facility], Transfer form completed. bb X-rays sent w/ patient. 06:30 Condition: stable 07:01 Patient left the ED. bb NIH Stroke Scale - NIH Stroke Score Date: 09/26/2019 Time: 05:50 Total Score = 5 1a. Level of Consciousness (LOC) - 0(Alert) 1b. Level of Consciousness (LOC) (Year \T\ Age) - 0(Both) 1c. LOC Commands (Open \T\ Closes Eyes/Software Implementation Project Manager) - 0(Both) 2. Best Gaze (Lateral Gaze Paresis) - 0(Normal) 3. Visual Field Loss - 0(No visual loss) 4. Facial Palsy - 1(Minor Paralysis) 5a. Left Arm: Motor (10-second hold) - 1(Drift) 5b. Right Arm: Motor (10-second hold) - 0(No drift) 6a. Left Leg: Motor (5-second hold - always test supine) - 1(Drift) 6b. Right Leg: Motor (5-second hold - always test supine) - 0(No drift) 7. Limb Ataxia (finger/nose \T\ heel/alanis - test with eyes open) - 2(Present in two limbs) 8. Sensory Loss (pinprick arms/legs/face) - 0(Normal) 9. Best Language: Aphasia (description/naming/reading) - 0(No aphasia) 10. Dysarthria (speech clarity - read or repeat words) - 0(Normal) 11. Extinction and Inattention (visual/tactile/auditory/spatial/personal) - 0(No abnormality) Initials: cal NIH Stroke Scale - NIH Stroke Score Date: 09/26/2019 Time: 05:52 Total Score = 6 1a. Level of Consciousness (LOC) - 0(Alert) 1b. Level of Consciousness (LOC) (Year \T\ Age) - 0(Both) 1c. LOC Commands (Open \T\ Closes Eyes/Software Implementation Project Manager) - 0(Both) 2. Best Gaze (Lateral Gaze Paresis) - 0(Normal) 3. Visual Field Loss - 0(No visual loss) 4. Facial Palsy - 2(Partial paralysis) 5a. Left Arm: Motor (10-second hold) - 1(Drift) 5b. Right Arm: Motor (10-second hold) - 0(No drift) 6a. Left Leg: Motor (5-second hold - always test supine) - 1(Drift) 6b. Right Leg: Motor (5-second hold - always test supine) - 0(No drift) 7. Limb Ataxia (finger/nose \T\ heel/alanis - test with eyes open) - 1(Present in one limb) 8. Sensory Loss (pinprick arms/legs/face) - 1(Mild to moderate loss) 9. Best Language: Aphasia (description/naming/reading) - 0(No aphasia) 10. Dysarthria (speech clarity - read or repeat words) - 0(Normal) 11. Extinction and Inattention (visual/tactile/auditory/spatial/personal) - 0(No abnormality) Initials: NIH Stroke Scale - NIH Stroke Score Date: 09/26/2019 Time: 06:30 Total Score = 6 1a. Level of Consciousness (LOC) - 0(Alert) 1b. Level of Consciousness (LOC) (Year \T\ Age) - 0(Both) 1c. LOC Commands (Open \T\ Closes Eyes/Software Implementation Project Manager) - 0(Both) 2. Best Gaze (Lateral Gaze Paresis) - 0(Normal) 3. Visual Field Loss - 0(No visual loss) 4. Facial Palsy - 2(Partial paralysis) 5a. Left Arm: Motor (10-second hold) - 1(Drift) 5b. Right Arm: Motor (10-second hold) - 0(No drift) 6a. Left Leg: Motor (5-second hold - always test supine) - 1(Drift) 6b. Right Leg: Motor (5-second hold - always test supine) - 0(No drift) 7. Limb Ataxia (finger/nose \T\ heel/alanis - test with eyes open) - 1(Present in one limb) 8. Sensory Loss (pinprick arms/legs/face) - 1(Mild to moderate loss) 9. Best Language: Aphasia (description/naming/reading) - 0(No aphasia) 10. Dysarthria (speech clarity - read or repeat words) - 0(Normal) 11. Extinction and Inattention (visual/tactile/auditory/spatial/personal) - 0(No abnormality) Initials: bb Signatures: Dispatcher [employer] EDKennedy Mccollum MD MD cha Sanford, Demi ds1 Ana Maria Montoya RN RN Danika Grier 1 Jami Irving RN RN ea [place], MyKena mw2 Chi Montague RN jb4 Jami Irving RN, ea Corrections: (The following items were deleted from the chart) 06:05 05:56 BP 176 / 96; Pulse 104bpm; Resp 16bpm; Pulse Ox 97% RA; Temp 98.7F Oral; mw2 99.79 kg; Height 5 ft. 9 in.; BMI: 32.4; Pain 8/10; mw2
[2019-09-26 07:10] VITALS: TEMP 98.7
[2019-09-26 07:16] VITALS: BP 144/84; O2SAT 96
--- NOTE | 2019-09-26 08:08 | EKG ---
Test Date: 2019-09-26 Test Time: 05:28:13 Sensor Technician: DAYANARA MEASUREMENT RESULTS: Intervals: Rate: 104 MS: 132 QRSD: 104 QT: 340 QTc: 447 [place]: P: 51 MS: 132 QRS: 34 T: 60 INTERPRETIVE STATEMENTS: Sinus tachycardia Otherwise normal ECG Compared to ECG 07/02/2019 20:42:06 Sinus rhythm no longer present Electronically Signed On 09-26-19 08:08:06 FISCAL AGENT by Albin Reyes
--- NOTE | 2019-09-26 08:28 | RAD REPORT ---
EXAM DESCRIPTION: RAD - Chest Single View - 09/26/2019 6:44 am CLINICAL HISTORY: CHEST PAIN Chest pain. COMPARISON: Chest Single View dated 07/02/2019; Chest Single View dated 06/21/2019; Chest Single View dated 03/29/2019; Chest Single View dated 02/06/2019 FINDINGS: Portable technique limits examination quality. The lungs are grossly clear. The heart is upper limit of normal in size. No displaced fractures. IMPRESSION: No acute intrathoracic process suspected.
--- NOTE | 2019-09-26 09:59 | RAD REPORT ---
EXAM DESCRIPTION: CT of the head without contrast CLINICAL HISTORY: WEAKNESS COMPARISON: 02/06/2019 TECHNIQUE: Axial CT of the head obtained from the skull apex to the skull base without contrast. FINDINGS: No acute intracranial hemorrhage identified. No mass, mass effect, shift of the midline, a bnormal extra-axial fluid collection or CT evidence of acute ischemic change identified. The ventricu lar system and sulcal spaces are not enlarged. Scattered areas of hypodensity throughout the suprat entorial white matter are nonspecific and may be related to chronic small vessel ischemic change. The visualized paranasal sinuses and the mastoids are clear. No skull fracture identified. Visua lized orbits and globes are unremarkable. IMPRESSION: 1. No acute intracranial abnormality by CT criteria. Urgent finding reported to Dr. Alva at 09/26/2019 6:00 AM [employer] WE[employer] SYSTEM OPERATOR This exam was performed according to our departmental dose-optimization program, which includes autom ated exposure control, adjustment of the mA and/or kV according to patient size and/or use of iterati ve reconstruction technique. Electronically signed by: Jayden Dejesus 09/26/2019 6:01 AM [employer] SYSTEM OPERATOR Due to temporary technical issues with the PACS/Fluency reporting system, reports are being signed by the in house radiologist as a courtesy to ensure prompt reporting. The interpreting radiologist is f ully responsible for the content of the report.
== END 2019-09-26 07:01 | disposition short-term general hospital (02) ==
LOC: ER 05:18
DX: I63.9 Cerebral infarction, unspecified (principal); R29.810 Facial weakness; G81.94 Hemiplegia, unspecified affecting left nondominant side; I10 Essential (primary) hypertension; R29.705 NIHSS score 5; I25.2 Old myocardial infarction
CPT/HCPCS: 36415; 70450; 71045; 80048; 80076; 83690; 83735; 83880; 84484; 85025; 85610; 92977; 93005; 99285; J2405; J2997; J7030

== ENCOUNTER 2019-10-22 18:21 | Emergency (ER) | payer BC, SELFPAY ==
[2019-10-22 18:46] LABS: Absolute Lymphocytes (CBC) 1.9 K/uL (0.7-4.9); Basophils % 1.1 % (0-1.3); Hematocrit 44.4 % (39.6-49.0); MPV 9.9 fL (7.6-11.3); RBC Red Blood Cell Count 4.66 M/uL (4.33-5.43)
--- NOTE | 2019-10-22 18:52 | RAD REPORT ---
EXAM DESCRIPTION: CT - Ct Stroke Brain Wo Cont - 10/22/2019 6:45 pm CLINICAL HISTORY: MENTAL STATUS CHANGE Headache, drowsiness, CVA COMPARISON: Ct Stroke Brain Wo Cont dated 09/26/2019; Ct Stroke Brain Wo Cont dated 02/06/2019 TECHNIQUE: All CT scans are performed using dose optimization technique as appropriate and may inclu de automated exposure control or mA/KV adjustment according to patient size. FINDINGS: No intracranial hemorrhage, hydrocephalus or extra-axial fluid collection.No areas of brai n edema or evidence of midline shift. The paranasal sinuses and mastoids are clear. The calvarium is intact. IMPRESSION: No acute intracranial abnormality. The findings were discussed with Adia Flowers in the ER on 10/22/2019 at 6:45 p.m. by telephone.
[2019-10-22 18:54] LABS: Protime INR 0.98
--- NOTE | 2019-10-22 19:00 | RAD REPORT ---
EXAM DESCRIPTION: RAD - Chest Single View - 10/22/2019 6:53 pm CLINICAL HISTORY: CHEST PAIN Chest pain. COMPARISON: Chest Single View dated 09/26/2019; Chest Single View dated 07/02/2019; Chest Single View dated 06/21/2019; Chest Single View dated 03/29/2019 FINDINGS: Portable technique limits examination quality. The lungs are grossly clear. The heart is normal in size. No displaced fractures. IMPRESSION: No acute intrathoracic process suspected.
[2019-10-22 19:08] LABS: Barbiturates NEGATIVE (NEGATIVE); Benzodiazepines NEGATIVE (NEGATIVE); Cocaine NEGATIVE (NEGATIVE); METHAMPHETAM NEGATIVE (NEGATIVE); Methadone NEGATIVE (NEGATIVE); Opiates NEGATIVE (NEGATIVE); Phencyclidine NEGATIVE (NEGATIVE); THC Cannibis NEGATIVE (NEGATIVE)
[2019-10-22 19:29] LABS: ALT/SGPT 37 U/L (12-78); AST/SGOT 13 U/L (15-37); Albumin 4.5 g/dL (3.4-5.0); Alkaline Phosphatase 69 U/L (45-117); Amylase Level 33 U/L (25-115); BUN Blood Urea Nitrogen 10 mg/dL (7-18); Bicarbonate 28 mmol/L (21-32); Bilirubin Direct 0.1 mg/dL (0-0.2); Bilirubin Total 0.4 mg/dL (0.2-1.0); CKMB Creatine Kinase MB < 1.0 ng/mL (0.3-3.6); Creatine Phosphokinase 55 U/L (39-308); Glucose Level 273 mg/dL (74-106); Lipase 232 U/L (73-393); Magnesium 2.4 mg/dL (1.8-2.4); Potassium 4.4 mmol/L (3.5-5.1); Protein, Total 8.2 g/dL (6.4-8.2); Sodium Level 142 mmol/L (136-145); Troponin (Emerg Dept Use Only) < 0.02 ng/mL (0.0-0.045)
[2019-10-22] MEDS ORDERED: NA CHLORIDE 0.9% 1,000 ML ONE ×2 (19:49→23:26)
[2019-10-22 20:34] LABS: Urine Blood NEGATIVE (NEG); Urine Glucose 2+ (NEG); Urine Protein NEGATIVE (NEG); Urine Specific Gravity <1.005 (1.005-1.030)
--- NOTE | 2019-10-22 22:02 | ER ---
Nurse's Notes [facility] Name: Chi Diaz Age: 54 yrs Sex: Male : 1965 Arrival Date: 10/22/2019 Time: 18:29 Bed 2 Private MD: Diagnosis: Chest pain, unspecified;Alcohol use, unspecified with intoxication, unspecified Presentation: 10/22 18:37 Presenting complaint: Patient states: was texting with friend but not making since so dm5 friend went upstairs and found pt AMS. Pt restless and combative. Pt calmed some and was able to tell us he had 2 margaritas with dinner. pt has a history of stroke and CO. Transition of care: patient was not received from another setting of care. Onset of symptoms was October 22, 2019. Risk Assessment: Do you want to hurt yourself or someone else? Patient reports no desire to harm self or others. 18:37 Acuity: SIDNEY 2 5 18:37 Method Of Arrival: EMS: [facility] 18:40 Initial Sepsis Screen: Does the patient meet any 2 criteria? No. Patient's initial jl7 sepsis screen is negative. Does the patient have a suspected source of infection? No. Patient's initial sepsis screen is negative. Care prior to arrival: None. Triage Assessment: 18:40 General: Appears uncomfortable, Behavior is agitated, anxious, combative. Pain: dm5 Complains of pain in mid-sternal area. Neuro: Level of Consciousness is awake, confused, pt not answering questions and fighting against interventions. Historical: - Allergies: 18:40 PENICILLINS; dm5 - Home Meds: 18:40 lisinopril 20 mg Oral tab 1 tab once daily [Active]; metformin 500 mg Oral tab 1 tab 2 dm5 times per day [Active]; - PMHx: 18:40 CVA; Diabetes - NIDDM; Hypertension; Myocardial infarction; Ulcers; dm5 - PSHx: 18:40 loop recorder; dm5 - Immunization history:: Adult Immunizations unknown. - Ebola Screening: : No symptoms or risks identified at this time. Screenin:01 Abuse screen: Denies threats or abuse. Denies injuries from another. Nutritional jl7 screening: No deficits noted. Tuberculosis screening: No symptoms or risk factors identified. Fall Risk IV access (20 points). Total Gregg Fall Scale indicates No Risk (0-24 pts). 19:55 The patient has not been NPO before screening. The patient is alert, able to follow ea commands. The patient does not exhibit slurred or garbled speech The patient is not exhibiting difficulty speaking. The patient does not exhibit difficulty understanding words. The patient is able to swallow own secretions with no drooling or need for suction. Patient tolerated one teaspoon of water. No drooling, immediate coughing, gurgling, or clearing of the throat was noted. The patient tolerated 90mL of water. No drooling, immediate coughing, gurgling, or clearing of the throat was noted. The patient passed the bedside swallow screening. Oral medications may be given as ordered. Contact Physician for further diet orders. Assessment: 19:45 General: Appears uncomfortable, Behavior is cooperative. Pain: Complains of pain in ea headache. Neuro: Level of Consciousness is awake, alert, obeys commands, Oriented to person, place, Appropriate for age. Cardiovascular: Patient's skin is warm and dry. Respiratory: Airway is patent Respiratory effort is even, unlabored, Respiratory pattern is regular, symmetrical. Derm: Skin is pink, warm \T\ dry. 19:50 Reassessment: pt is awake and alert, no s/s of distress. pt oriented x3. states he ch doesn't remember why he is here. resps even and unlabored. c/o of headache and body aches. awaiting repeat labs in 2 hours and repeat ekg, and repeat alcohol level. 20:30 Reassessment: Patient and/or family updated on plan of care and expected duration. Pain ea level reassessed. Patient is alert, oriented x 3, equal unlabored respirations, skin warm/dry/pink. Pt resting with eyes closed, respirations even and unlabored. Chest expansions even and symmetrical. No s/s of pain or discomfort noted at this time. 21:33 Reassessment: Patient and/or family updated on plan of care and expected duration. Pain ea level reassessed. Patient is alert, oriented x 3, equal unlabored respirations, skin warm/dry/pink. 23:50 Reassessment: Patient and/or family updated on plan of care and expected duration. Pain ea level reassessed. Patient is alert, oriented x 3, equal unlabored respirations, skin warm/dry/pink. Awaiting for pt to sober up. 10/23 00:11 Reassessment: Patient and/or family updated on plan of care and expected duration. Pain ea level reassessed. Pt resting with eyes closed, respirations even and unlabored, chest expansions even and symmetrical. 01:39 Reassessment: Patient and/or family updated on plan of care and expected duration. Pain ea level reassessed. Pt resting with eyes closed, respirations even and unlabored chest expansions even and symmetrical. No s/s of pain or discomfort noted at this time. 03:30 Reassessment: Patient and/or family updated on plan of care and expected duration. Pain ea level reassessed. Patient is alert, oriented x 3, equal unlabored respirations, skin warm/dry/pink. 04:19 Reassessment: Patient and/or family updated on plan of care and expected duration. Pain ea level reassessed. Patient is alert, oriented x 3, equal unlabored respirations, skin warm/dry/pink. Awaiting for 0630 AM bus Patient states feeling better. 05:38 Reassessment: Patient and/or family updated on plan of care and expected duration. Pain ea level reassessed. Patient is alert, oriented x 3, equal unlabored respirations, skin warm/dry/pink. Pt reports he is feeling better and is ready to go home. Discharge instruction given to patient, verbalized the understanding of instruction. Pt awaiting on transportation in [facility]. Patient states feeling better. Vital Signs: 10/22 18:45 BP 122 / 80; Pulse 71; Resp 17 S; Pulse Ox 93% on R/A; jl7 19:50 BP 126 / 62; Pulse 74; Resp 18; Pulse Ox 99% on R/A; Pain 6/10; ch 20:30 BP 109 / 78; Pulse 66; Resp 18; Pulse Ox 99% on R/A; ea 21:41 BP 107 / 77; Pulse 64; Resp 18; Temp 97.6; Pulse Ox 95% ; ea 23:40 BP 127 / 90; Pulse 78; Resp 18; Pulse Ox 99% ; ea 10/23 00:12 BP 114 / 53; Pulse 68; Resp 18; Pulse Ox 97% on R/A; ea 02:30 BP 127 / 64; Pulse 70; Resp 18; Pulse Ox 100% ; ea 05:00 BP 122 / 53; Pulse 65; Resp 18; Pulse Ox 98% ; ea ED Course: 10/22 18:29 Patient arrived in ED. dm5 18:29 [facility] FNP-C [facility] snw 18:29 Cassy Moody MD is Attending Physician. snw 18:39 Triage completed. dm5 18:40 Arm band placed on right wrist. Patient placed in an exam room, on residential real estate sales manager, on dm5 pulse oximetry. EKG done per protocol. Urine obtained. CT ordered. 18:45 Patient has correct armband on for positive identification. Placed in gown. Bed in low jl7 position. Call light in reach. Side rails up X 1. grip on. Pulse ox on. NIBP on. 18:45 Initial lab(s) drawn, by ED staff, sent to lab. Urine collected: straight cath jl7 specimen, clear. Inserted saline lock: 18 gauge in left forearm, using aseptic technique. Blood collected. 18:45 Straight cath inserted, using sterile technique, 16 Fr. Specimen obtained. Returned jl7 clear yellow urine. Patient tolerated well. 18:46 CT Stroke Brain w/o Contrast In Process Unspecified. EDMS 18:53 Stroke CXR 1 View In Process Unspecified. EDMS 19:27 Jami Irving, ELDER is Primary Nurse. ea 10/23 00:11 No provider procedures requiring assistance completed. ea 05:38 IV discontinued, intact, bleeding controlled, No redness/swelling at site. Pressure ea dressing applied. Administered Medications: 10/22 19:50 Drug: NS 0.9% 1000 ml Route: IV; Rate: 75 ml/hr; Site: left forearm; 22:08 Follow up: Response: No adverse reaction; IV Status: Completed infusion; IV Intake: ea 1000ml 22:07 Drug: ProTONIX 40 mg Route: IVP; Site: left forearm; ea 10/23 00:13 Follow up: Response: No adverse reaction ea 10/22 23:26 Drug: NS 0.9% 1000 ml Route: IV; Rate: 1 bolus; Site: left forearm; ea 10/23 00:12 Follow up: Response: No adverse reaction; IV Status: Completed infusion; IV Intake: ea 1000ml 10/22 23:40 Drug: [place] 5 mg-325 mg 1 tabs Route: PO; ea 10/23 00:13 Follow up: Response: No adverse reaction; RASS: Alert and Calm (0) ea 10/22 23:40 Drug: Aspirin Chewable Tablet 324 mg Route: PO; ea 10/23 00:13 Follow up: Response: No adverse reaction ea Intake: 10/22 22:08 IV: 1000ml; Total: 1000ml. ea 10/23 00:12 IV: 1000ml; Total: 2000ml. ea Outcome: 10/22 22:02 Discharge ordered by MD. henley 10/23 05:41 Discharged to home ambulatory. ea Condition: stable Discharge instructions given to patient, Instructed on discharge instructions, follow up and referral plans. medication usage, Demonstrated understanding of instructions, follow-up care, medications. 05:42 Patient left the ED. ea Signatures: Dispatcher [employer] EDMS Mulu Lima RN Cherry Logna ch, RN RN dm5 Adia Angel, JUVENILE CORRECTIONS OFFICER-C JUVENILE CORRECTIONS OFFICER-Csnw Aaron Collado RN RN jl7 Jami Irving RN RN ea
--- NOTE | 2019-10-22 22:03 | EDPHYS ---
Physician Documentation [facility] Name: Chi Diaz Age: 54 yrs Sex: Male : 1965 Arrival Date: 10/22/2019 Time: 18:29 Bed 2 Private MD: ED Physician Cassy Moody HPI: 10/22 18:55 This 54 yrs old Male presents to ER via EMS with complaints of chest pain. snw 18:55 Stroke alert called secondary to AMS. GCS 15, more behavioral symptoms. No weakness, CT snw head negative. Pt with hx of CVA last month, on Lovenox, TPA not appropriate for this pt based on above findings.. 19:32 The patient presents with decreased mental status, decreased responsiveness. Onset: The snw symptoms/episode began/occurred suddenly, intermittent. Possible causes: CVA or TIA, hx of CVA last month, alcohol, has had a recent alcohol binge, unknown. Associated signs and symptoms: Pertinent positives: chest pain. Current symptoms: In the emergency department the patient's symptoms are unchanged from the initial presentation. Patient's baseline: unknown to me, pt answers questions appropriately at intervals and feigns unconsciousness at intervals, no noted weakness, pupils equal and miotic. It is unknown whether or not the patient has had similar symptoms in the past. hx of CVA last month, states he went to PT recently, pt with ecchymotic areas to bilateral lower abd from lovenox use . Historical: - Allergies: 18:40 PENICILLINS; dm5 - Home Meds: 18:40 lisinopril 20 mg Oral tab 1 tab once daily [Active]; metformin 500 mg Oral tab 1 tab 2 dm5 times per day [Active]; - PMHx: 18:40 CVA; Diabetes - NIDDM; Hypertension; Myocardial infarction; Ulcers; dm5 - PSHx: 18:40 loop recorder; dm5 - Immunization history:: Adult Immunizations unknown. - Ebola Screening: : No symptoms or risks identified at this time. ROS: 19:36 Unable to obtain ROS due to altered mental status, patient being uncooperative. snw Exam: 19:36 Head/Face: Normocephalic, atraumatic. Eyes: Pupils equal round and reactive to light, snw extra-ocular motions intact. Lids and lashes normal. Conjunctiva and sclera are non-icteric and not injected. Cornea within normal limits. Periorbital areas with no swelling, redness, or edema. ENT: Nares patent. No nasal discharge, no septal abnormalities noted. Tympanic membranes are normal and external auditory canals are clear. Oropharynx with no redness, swelling, or masses, exudates, or evidence of obstruction, uvula midline. Mucous membranes moist. Neck: Trachea midline, no thyromegaly or masses palpated, and no cervical lymphadenopathy. Supple, full range of motion without nuchal rigidity, or vertebral point tenderness. No Meningismus. Chest/axilla: Normal chest wall appearance and motion. Nontender with no deformity. No lesions are appreciated. Cardiovascular: Regular rate and rhythm with a normal S1 and S2. No gallops, murmurs, or rubs. Normal PMI, no JVD. No pulse deficits. Respiratory: Lungs have equal breath sounds bilaterally, clear to auscultation and percussion. No rales, rhonchi or wheezes noted. No increased work of breathing, no retractions or nasal flaring. 19:36 Back: No spinal tenderness. No costovertebral tenderness. Full range of motion. Skin: Warm, dry with normal turgor. Normal color with no rashes, no lesions, and no evidence of cellulitis. MS/ Extremity: Pulses equal, no cyanosis. Neurovascular intact. Full, normal range of motion. 19:36 Constitutional: The patient appears awake, obese. 19:36 Abdomen/GI: Inspection: obese Bowel sounds: normal, Palpation: abdomen is soft and non-tender, ecchymotic areas (lovenox use) to lower abdomen, + umbilical hernia without acute findings. 19:36 Neuro: Orientation: unable to test, Mentation: inappropriate for stated age, Motor: no weakness, Babinski testing is normal, seizure activity, is not displayed by the patient. 19:36 Psych: Behavior/mood is uncooperative, inappropriate for age, Affect is animated. Vital Signs: 18:45 BP 122 / 80; Pulse 71; Resp 17 S; Pulse Ox 93% on R/A; jl7 19:50 BP 126 / 62; Pulse 74; Resp 18; Pulse Ox 99% on R/A; Pain 6/10; ch 20:30 BP 109 / 78; Pulse 66; Resp 18; Pulse Ox 99% on R/A; ea 21:41 BP 107 / 77; Pulse 64; Resp 18; Temp 97.6; Pulse Ox 95% ; ea 23:40 BP 127 / 90; Pulse 78; Resp 18; Pulse Ox 99% ; ea 10/23 00:12 BP 114 / 53; Pulse 68; Resp 18; Pulse Ox 97% on R/A; ea 02:30 BP 127 / 64; Pulse 70; Resp 18; Pulse Ox 100% ; ea 05:00 BP 122 / 53; Pulse 65; Resp 18; Pulse Ox 98% ; ea MDM: 10/22 18:49 Patient medically screened. snw 18:57 ED course: TPA not indicated for pt s/s. GCS 15, CT head negative. Behavioral AMS. snw 10/23 00:26 Data reviewed: vital signs, nurses notes. Data interpreted: Pulse oximetry: on room air snw is 97 %. Interpretation: normal. Counseling: I had a detailed discussion with the patient and/or guardian regarding: the historical points, exam findings, and any diagnostic results supporting the discharge/admit diagnosis, lab results, radiology results, the need for outpatient follow up, to return to the emergency department if symptoms worsen or persist or if there are any questions or concerns that arise at home. Special discussion: Based on the patient's history, exam, and Dx evaluation, there is no indication for emergent intervention or inpatient Tx. It is understood by the patient/guardian that if the Sx's persist or worsen they need to return immediately for re-evaluation. Based on the history and exam findings, there is no indication for further emergent testing or inpatient evaluation. I discussed with the patient/guardian the need to see the j2ee programmer for further evaluation of the symptoms. I discussed with the patient/guardian the need to see the primary care provider for further evaluation of the symptoms. 10/22 18:32 Order name: Acetaminophen; Complete Time: 19:40 snw 10/22 18:32 Order name: Basic Metabolic Panel; Complete Time: 19:40 snw 10/22 18:32 Order name: CBC with Diff; Complete Time: 18:48 snw 10/22 18:32 Order name: ETOH Level; Complete Time: 19:07 snw 10/22 18:32 Order name: Hepatic Function; Complete Time: 19:40 snw 10/22 18:32 Order name: PT-INR; Complete Time: 18:55 w 10/22 18:32 Order name: Ptt, Activated; Complete Time: 18:55 10/22 18:32 Order name: Salicylate; Complete Time: 19:07 10/22 18:32 Order name: Urine Drug Screen; Complete Time: 19:07 10/22 18:32 Order name: Troponin (emerg Dept Use Only); Complete Time: 19:40 10/22 18:32 Order name: Amylase, Serum; Complete Time: 19:40 10/22 18:32 Order name: Lipase; Complete Time: 19:40 10/22 18:32 Order name: CPK; Complete Time: 19:40 10/22 18:32 Order name: Ckmb; Complete Time: 19:40 10/22 18:32 Order name: EKG; Complete Time: 18:34 10/22 18:32 Order name: EKG - Nurse/Tech; Complete Time: 19:11 10/22 18:32 Order name: IV Saline Lock; Complete Time: 19:11 10/22 18:32 Order name: Labs collected and sent; Complete Time: 19:11 10/22 18:32 Order name: Magnesium; Complete Time: 19:40 10/22 18:32 Order name: CT Stroke Brain w/o Contrast; Complete Time: 18:50 10/22 18:32 Order name: Stroke CXR 1 View; Complete Time: 19:02 10/22 18:57 Order name: Urine Dipstick--Ancillary (enter results); Complete Time: 20:36 10/22 21:21 Order name: EKG; Complete Time: 21:21 10/22 21:21 Order name: ETOH Level; Complete Time: 21:56 10/22 21:21 Order name: Troponin (emerg Dept Use Only); Complete Time: 21:57 10/22 18:32 Order name: Urine Dipstick-Ancillary (obtain specimen); Complete Time: 19:11 10/22 18:32 Order name: Accucheck; Complete Time: 20:01 10/22 18:32 Order name: Cardiac monitoring; Complete Time: 19:11 10/22 18:32 Order name: NPO; Complete Time: 20:00 snw 10/22 18:32 Order name: O2 Per Protocol; Complete Time: 19:11 snw 10/22 18:32 Order name: O2 Sat Monitoring; Complete Time: 19:11 snw 10/22 18:32 Order name: Stroke Swallow Screen; Complete Time: 00:12 snw Administered Medications: 10/22 19:50 Drug: NS 0.9% 1000 ml Route: IV; Rate: 75 ml/hr; Site: left forearm; 22:08 Follow up: Response: No adverse reaction; IV Status: Completed infusion; IV Intake: ea 1000ml 22:07 Drug: ProTONIX 40 mg Route: IVP; Site: left forearm; ea 10/23 00:13 Follow up: Response: No adverse reaction 10/22 23:26 Drug: NS 0.9% 1000 ml Route: IV; Rate: 1 bolus; Site: left forearm; ea 10/23 00:12 Follow up: Response: No adverse reaction; IV Status: Completed infusion; IV Intake: ea 1000ml 10/22 23:40 Drug: [place] 5 mg-325 mg 1 tabs Route: PO; ea 10/23 00:13 Follow up: Response: No adverse reaction; RASS: Alert and Calm (0) 10/22 23:40 Drug: Aspirin Chewable Tablet 324 mg Route: PO; ea 10/23 00:13 Follow up: Response: No adverse reaction ea Disposition: 10/22/19 22:02 Discharged to Home. Impression: Chest pain, unspecified, Alcohol use, unspecified with intoxication, unspecified. - Condition is Stable. - Discharge Instructions: Alcohol Intoxication, Nonspecific Chest Pain, Gastroesophageal Reflux Disease, Adult, Aspirin and Your Heart. - Prescriptions for Pepcid 20 mg Oral Tablet - take 1 tablet by ORAL route once daily; 20 tablet. - Work release form, Medication Reconciliation Form, Thank You Letter, Antibiotic Education, Prescription Opioid Use form. - Follow up: Emergency Department; When: As needed; Reason: Worsening of condition. Follow up: Private Physician; When: 1 - 2 days; Reason: Recheck today's complaints, Continuance of care, Re-evaluation by your physician. Signatures: Dispatcher [employer] EDMulu Chadwick, RN RN Cherry العراقي RN RN dm5 Adia Angel, COMPUTER SCIENCE TEACHER-C COMPUTER SCIENCE TEACHER-Csnw Aaron Collado, RN RN jl7 Jami Irving RN ELDER blackwell Corrections: (The following items were deleted from the chart) 10/22 22:02 22:01 Chart complete. lory henley 10/23 05:42 10/22 22:02 10/22/2019 22:02 Discharged to Home. Impression: Chest pain, unspecified; ea Alcohol use, unspecified with intoxication, unspecified. Condition is Stable. Forms are Medication Reconciliation Form, Thank You Letter, Antibiotic Education, Prescription Opioid Use. Follow up: Emergency Department; When: As needed; Reason: Worsening of condition. Follow up: Private Physician; When: 1 - 2 days; Reason: Recheck today's complaints, Continuance of care, Re-evaluation by your physician. lory
[2019-10-22] MEDS ORDERED: PANTOPRAZOLE 40 MG INJ ONE (22:05)
[2019-10-22] MEDS ORDERED: HYDROCODONE/APAP 5/325 MG TAB ONE (23:37)
[2019-10-22] MEDS ORDERED: ASPIRIN 81 MG CHEWABLE TABLET ONE (23:37)
--- NOTE | 2019-10-23 06:35 | EKG ---
Test Date: 2019-10-22 Test Time: 18:34:24 Applications Developer: MEASUREMENT RESULTS: Intervals: Rate: 84 AK: 140 QRSD: 106 QT: 392 QTc: 463 [place]: P: 38 AK: 140 QRS: 48 T: 41 INTERPRETIVE STATEMENTS: Normal sinus rhythm Normal ECG Compared to ECG 10/22/2019 18:33:41 Accelerated junctional rhythm no longer present Ventricular premature complex(es) no longer present Electronically Signed On 10-23-19 06:35:21 CREDIT DIRECTOR by Steve Lee
--- NOTE | 2019-10-23 06:36 | EKG ---
Test Date: 2019-10-22 Test Time: 18:33:41 Package Maker: MEASUREMENT RESULTS: Intervals: Rate: 91 AK: QRSD: 108 QT: 366 QTc: 450 [place]: P: AK: QRS: 40 T: 47 INTERPRETIVE STATEMENTS: Sinus rhythm Excessive baseline artifact otherwise normal ECG Compared to ECG 09/26/2019 05:28:13 Sinus tachycardia no longer present Electronically Signed On 10-23-19 06:36:15 LICENSED TAX CONSULTANT by Steve Lee
--- NOTE | 2019-10-23 14:01 | EKG ---
Test Date: 2019-10-22 Test Time: 21:25:26 Theatrical Agent: MARCIAL MEASUREMENT RESULTS: Intervals: Rate: 70 GA: 144 QRSD: 104 QT: 428 QTc: 462 [place]: P: 47 GA: 144 QRS: 39 T: 48 INTERPRETIVE STATEMENTS: Normal sinus rhythm Normal ECG Compared to ECG 10/22/2019 18:34:24 No significant changes Electronically Signed On 10-23-19 13:59:58 SECURITY SYSTEMS ADMINISTRATOR by Steve Lee
[2019-10-23 18:13] VITALS: TEMP 97.6
[2019-10-23 18:15] VITALS: BP 114/53; O2SAT 97
== END 2019-10-23 05:42 | disposition home or self-care (01) ==
LOC: ER 18:21
DX: F10.129 Alcohol abuse with intoxication, unspecified (principal); R07.9 Chest pain, unspecified; I10 Essential (primary) hypertension; E11.9 Type 2 diabetes mellitus without complications; I25.2 Old myocardial infarction; Z88.0 Allergy status to penicillin
CPT/HCPCS: 96361; 93005 ×3; 85025; 80048; 36415; 80320 ×2; 82150; 83735; 82550; 80329 ×2; 85610; 80076; 80307 ×8; 85730; 81003; 84484 ×2; 82553; 83690; 70450; 71045; 51702; 96374; 99285; C9113; J7030 ×2